=== PATIENT | female | born 1985 | race Caucasian/White ===

== ENCOUNTER 2016-04-22 17:32 | Emergency (ER) | payer OTHER ==
[2016-04-22 17:39] VITALS: RESP 18
--- NOTE | 2016-04-22 18:28 | DX ---
Abdomen single views at 1753 hour Indication: Constipation. Vomiting. Comparison: None available. Findings: Moderate stool especially the ascending and transverse colon but also throughout the descen ding colon. Lung bases not identified. No bowel obstruction. Bones are unremarkable for patients age. Impression: Constipation.
--- NOTE | 2016-04-22 18:53 | EDPHY ---
H & P Time Seen by Provider: 04/22/16 18:45 HPI/ROS: HPI: 31-year-old female presents to emergency department with chief concern constipation. Has not had bowel movement for 4 days. Tried Mag citrate this morning without relief of constipation. Has been feeling slightly nauseous and had 2 episodes of emesis today. She is on chronic narcotic pain medication for 3 years. Does not take a stool softener. Has had issues with constipation in the past. Denies fever, chills, abdominal pain, urinary symptoms, back or flank pain. ROS:10 point review of systems is negative other than as stated in HPI Past Medical/Surgical History: Anxiety, bipolar, attention deficit hyperactivity disorder, bladder control issues, left elbow surgery in 2 left ankle surgeries, pneumonia, prediabetic, tubal ligation, septoplasty, Social History: Lives with her mother Smoking Status: Never smoked Physical Exam: Vital signs stable, reviewed by me General: Awake, alert, calm, cooperative. No acute distress. Head: Normalocephalic. Atraumatic. EENT: PERRLA. EOMI. No pallor or injection. Anicteric. No nystagmus. No injection. Neck: Supple, nontender. No lymphadenopathy. Full range of motion. No meningismus. Respiratory: Breathing unlabored. Breath sounds equal bilaterally and clear to auscultation. No adventitious sounds. CV: Chest nontender, atraumatic. Heart rate regular. No murmur, distal pulses 2+ bilaterally. Brisk cap refill all extremities. GI: Abdomen soft, mildly tender left middle abdomen. No guarding. No rebound. Bowel sounds normoactive and positive x4 quadrants. Rectal: No impaction, no masses, no hemorrhoids Neuro: Alert. Oriented x 3. Speech clear. Nonfocal cranial nerves throughout. Sensation intact all extremities. Skin: Skin warm, dry, intact. No rashes, abrasions, or lacerations. Skin turgor normal. Extremities: Full range of motion in all 4 extremities. Strength 5+ all extremities. Constitutional: Initial Vital Signs Temperature (C) 36.6 C 04/22/16 17:37 Heart Rate 88 04/22/16 17:37 Respiratory Rate 18 04/22/16 17:37 Blood Pressure 147/100 H 04/22/16 17:37 O2 Sat (%) 90 L 04/22/16 17:37 O2 Delivery Mode Room Air Allergies/Adverse Reactions: hydrocodone bitartrate [From Vicodin] Allergy (Intermediate, Verified 04/22/16 17:35) Vomiting metformin Allergy (Mild, Verified 04/22/16 17:35) Rash adhesive tape Allergy (Verified 04/22/16 17:35) Milk Containing Products [dairy] Allergy (Verified 04/22/16 17:35) golight Allergy (Intermediate, Uncoded 01/31/16 15:17) Vomiting other allergy Allergy (Uncoded 11/08/15 20:42) Home Medications: Medication Instructions Recorded ARIPiprazole [Abilify 10 mg (*)] 10 mg PO DAILY 11/16/12 Montelukast Sodium [Singulair 10 10 mg PO DAILY@1800 11/16/12 mg (*)] OXcarbazepine [Trileptal 300mg (*)] 600 mg PO BID 11/16/12 Pregabalin [Lyrica 75mg (*)] 75 mg PO BID 11/16/12 Dexlansoprazole [DEXILANT] 30 mg PO DAILY 11/21/13 Methylphenidate HCl [METADATE CD] 10 mg PO DAILY 11/21/13 LORazepam [Ativan (*)] 1 mg PO HS 11/22/13 Levalbuterol 0.63 mg [Xopenex 0.63 mg IH Q6 PRN #1 deyvial 11/23/13 0.63MG Neb (*)] Azelastine/Fluticasone [Dymista 1 spray NS BID 02/22/16 Nasal [place]] Diclofenac Sodium [Voltaren 75 MG 75 mg PO BID 02/22/16 (*)] Ferrous Sulfate [Ferrous Sulf 325 325 mg PO DAILY 02/22/16 MG (*)] Mometasone/Formoterol [Dulera 200 2 puffs IH BID 02/22/16 Mcg/5 Mcg Inhaler] Oxybutynin Chloride [OXYBUTYNIN 5 mg PO DAILY 02/22/16 CHLORIDE ER] Oxycodone HCl [Roxicodone] 5 mg PO BID 02/22/16 Polyethylene Glycol 3350 [Miralax 17 gm PO DAILY #3 pkt 04/22/16 17 gm (*)] Medical Decision Making - Diagnostics Imaging: Abdomen single views at 1753 hour Indication: Constipation. Vomiting. Comparison: None available. Findings: Moderate stool especially the ascending and transverse colon but also throughout the descending colon. Lung bases not identified. No bowel obstruction. Bones are unremarkable for patients age. Impression: Constipation. Dictated By: Leonardo Padilla ED Course/Re-evaluation: Upright of the abdomen consistent with moderate constipation. No evidence of obstruction. Patient has positive bowel sounds. She is afebrile. She has not had a bowel movement x4 days. She is not impacted. 1925: mineral oil enema given Without results. 2100: 2nd enema given without results Patient has been counseled regarding the use of stool softeners and laxative. She will continue this regimen at home, begin stool softener and Miralax and follow up with primary care tomorrow. Differential Diagnosis: Constipation, obstruction - Data Points Medications Given: Discontinued Medications Mineral Oil (Muri-Lube Mineral Oil) 30 ml TP ONCE ONE Stop: 04/22/16 19:59 Last Admin: 04/22/16 18:40 Dose: 30 ml Mineral Oil (Muri-Lube Mineral Oil) 30 ml TP ONCE ONE Stop: 04/22/16 20:33 Last Admin: 04/22/16 20:44 Dose: 30 ml Departure - Departure Disposition: Home, Routine, Self-Care Clinical Impression: Constipation Qualifiers: Constipation type: other constipation type Qualifier Code: (K59.09) Other constipation Condition: Good Instructions: Constipation (ED), High Fiber Diet (ED) Additional Instructions: Plan: We have given you 2 enemas here in the ED. Go to pharmacy and buy OTC Fleets enema and use at home. Use Mag Citrate OTC max dose as directed on the bottle. [id number] Colace stool softener daily for 2 weeks, or as directed by your primary care provider Begin using Aliyah lax daily for the next 3 days See your primary care provider tomorrow for recheck without fail--When you call to schedule appointment, please let the office know you are an "ER follow up" appointment" Drink plenty of fluids Smooth Move or Get Regular are OTC teas for help with constipation Referrals: Kenyatta Coates NP [Primary Care Provider] - As per Instructions Prescriptions: Polyethylene Glycol 3350 [Miralax 17 gm (*)] 17 gm PO DAILY #3 pkt
[2016-04-22] MEDS ORDERED: MINERAL OIL 10 ML VIAL TP ONE ×2 (19:58→20:32)
[2016-04-22 21:00] VITALS: BP 135/96; PULSE 77; TEMP 97.3; O2SAT 93
== END 2016-04-22 21:37 | disposition home or self-care (01) ==
DX: K59.09 Other constipation (principal)

== ENCOUNTER 2016-05-10 22:03 | Emergency (ER) | payer OTHER ==
[2016-05-10 22:11] VITALS: RESP 16
--- NOTE | 2016-05-10 22:27 | EDPHY ---
H & P Stated Complaint: "feels like there's a bubble" in throat x 2-3? days, unable to clear it HPI/ROS: HPI CHIEF COMPLAINT: "I am having bad GERD" HISTORY OF PRESENT ILLNESS: This patient very pleasant 31-year-old female she does have significant past medical history for anxiety, bipolar disorder ED and GERD. She presents emergency room by private vehicle feeling as if there is a bubble stuck in her throat. She is able to swallow. She denies neck pain meningeal signs, denies trouble swallowing, denies pain when she swallows. She tells me that this feels like a bubble stuck in the back of her throat. Patient tells me that when her GERD gets very bad she gets sensation in the back of her throat that there is a bubble stuck there. It has been present all day. She has not had any trouble breathing. She denies fever, trouble swallowing, trouble breathing or drooling. Past Medical History: Anxiety, bipolar disorder, ADD, gerd, pneumonia Past Surgical History: Tubal ligation Social History: Denies daily use of drugs alcohol tobacco products Family History: Noncontributory ROS REVIEW OF SYSTEMS: A comprehensive 10 point review of systems is otherwise negative aside from elements mentioned in the history of present illness. Exam Constitutional triage nursing summary reviewed, vital signs reviewed, awake/ alert. Eyes normal conjunctivae and sclera, EOMI, PERRLA. HENT posterior pharynx is normal inspection uvula midline no significant swelling, no signs of MARKET RESEARCH COORDINATOR, RPA, no trismus, no foul smell, able to swallow appropriately no bruit on exam, normal inspection, atraumatic, moist mucus membranes, no epistaxis, neck supple/ no meningismus, no raccoon eyes. Respiratory clear to auscultation bilaterally, normal breath sounds, no respiratory distress, no wheezing. Cardiovascular rate normal, regular rhythm, no murmur, no edema, distal pulses normal. Gastrointestinal soft, non-tender, no rebound, no guarding, normal bowel sounds, no distension, no pulsatile mass. Genitourinary no CVA tenderness. Musculoskeletal no midline vertebral tenderness, full range of motion, no calf swelling, no tenderness of extremities, no meningismus, good pulses, neurovascularly intact. Skin pink, warm, & dry, no rash, skin atraumatic. Neurologic awake, alert and oriented x 3, AAOx3, moves all 4 extremities equally, motor intact, sensory intact, CN II-XII intact, normal cerebellar, normal vision, normal speech. Psychiatric normal mood/affect. Heme/Lymph/Immune no lymphadenopathy. Differential Diagnosis: Includes but is not limited to in a particular order GERD, anxiety, esophagitis, esophageal spasm, doubt neck foreign body, doubt infection of the deep space neck Medical Decision Making: Patient be given a GI cocktail to see if this improves her symptoms. We will re-evaluate after this. Re-evaluation: 0125AM: Re-examination at this time this patient is resting comfortably. She feels much better after GI cocktail she states her symptoms have resolved. She is requesting discharge home. She is able swallow appropriately. She has no stridor and she is not drooling is much better after GI cocktail. Pain-free. Source: Patient - Personal History LMP (Females 10-55): Unknown Current Tetanus/Diphtheria Vaccine: Yes Current Tetanus Diphtheria and Acellular Pertussis (TDAP): Yes Tetanus Vaccine Date: 2013 - Medical/Surgical History Hx Asthma: Yes Hx Chronic Respiratory Disease: No Hx Diabetes: Yes Hx Cardiac Disease: No Hx Renal Disease: No Hx Cirrhosis: No Hx Alcoholism: No Hx HIV/AIDS: No Hx Splenectomy or Spleen Trauma: No Other PMH: esophageal reflux, anxiety, bipolar , ADHD, bladder control issues. left elbow surgery and 2 left ankle surgery-Dx with regional complex pain syndrome., PNA. "pre-diabetic". surg-tubal ligation. septo plasty, turminate reduction - Social History Smoking Status: Never smoked Constitutional: Initial Vital Signs Temperature (C) 36.3 C 05/10/16 22:07 Heart Rate 101 H 05/10/16 22:07 Respiratory Rate 16 05/10/16 22:07 Blood Pressure 126/99 H 05/10/16 22:07 O2 Sat (%) 94 05/10/16 22:07 O2 Delivery Mode Room Air Allergies/Adverse Reactions: hydrocodone bitartrate [From Vicodin] Allergy (Intermediate, Verified 04/22/16 17:35) Vomiting metformin Allergy (Mild, Verified 04/22/16 17:35) Rash adhesive tape Allergy (Verified 04/22/16 17:35) [id number] [From Golytely] Allergy (Verified 05/10/16 22:13) Milk Containing Products [dairy] Allergy (Verified 04/22/16 17:35) polyethylene glycol [From Golytely] Allergy (Verified 05/10/16 22:13) polyethylene glycol 3350 [From Golytely] Allergy (Verified 05/10/16 22:13) potassium chloride [From Golytely] Allergy (Verified 05/10/16 22:13) sodium [From Golytely] Allergy (Verified 05/10/16 22:13) sodium bicarbonate [From Golytely] Allergy (Verified 05/10/16 22:13) sodium sulfate [From Golytely] Allergy (Verified 05/10/16 22:13) sodium sulfate anhydrous [From Golytely] Allergy (Verified 05/10/16 22:13) golight Allergy (Intermediate, Uncoded 01/31/16 15:17) Vomiting other allergy Allergy (Uncoded 11/08/15 20:42) Home Medications: Medication Instructions Recorded ARIPiprazole [Abilify 10 mg (*)] 10 mg PO DAILY 11/16/12 Montelukast Sodium [Singulair 10 10 mg PO DAILY@1800 11/16/12 mg (*)] OXcarbazepine [Trileptal 300mg (*)] 600 mg PO BID 11/16/12 Pregabalin [Lyrica 75mg (*)] 75 mg PO BID 11/16/12 Dexlansoprazole [DEXILANT] 30 mg PO DAILY 11/21/13 Methylphenidate HCl [METADATE CD] 10 mg PO DAILY 11/21/13 LORazepam [Ativan (*)] 1 mg PO HS 11/22/13 Levalbuterol 0.63 mg [Xopenex 0.63 mg IH Q6 PRN #1 deyvial 11/23/13 0.63MG Neb (*)] Azelastine/Fluticasone [Dymista 1 spray NS BID 02/22/16 Nasal [place]] Diclofenac Sodium [Voltaren 75 MG 75 mg PO BID 02/22/16 (*)] Ferrous Sulfate [Ferrous Sulf 325 325 mg PO DAILY 02/22/16 MG (*)] Mometasone/Formoterol [Dulera 200 2 puffs IH BID 02/22/16 Mcg/5 Mcg Inhaler] Oxybutynin Chloride [OXYBUTYNIN 5 mg PO DAILY 02/22/16 CHLORIDE ER] Oxycodone HCl [Roxicodone] 5 mg PO BID 02/22/16 Polyethylene Glycol 3350 [Miralax 17 gm PO DAILY #3 pkt 04/22/16 17 gm (*)] Medical Decision Making - Data Points Medications Given: Discontinued Medications Miscellaneous Medication (Gi Cocktail) 55 ml PO EDNOW ONE Stop: 05/10/16 22:32 Last Admin: 05/10/16 22:49 Dose: 55 ml Miscellaneous Medication (Gi Cocktail) 55 ml PO EDNOW ONE Stop: 05/10/16 23:25 Last Admin: 05/10/16 23:24 Dose: 55 ml Departure - Departure Disposition: Home, Routine, Self-Care Clinical Impression: GERD (gastroesophageal reflux disease) Qualifiers: Esophagitis presence: with esophagitis Qualified Code(s): K21.0 - Gastro- esophageal reflux disease with esophagitis Condition: Good Instructions: Gastroesophageal Reflux Disease (ED) Additional Instructions: 1. Drink lots of fluids stay well-hydrated 2. Stay away from spicy fatty greasy foods. 3. return emergency room if you have any worsening symptoms questions or concerns. Referrals: Kenyatta Coates NP [Primary Care Provider] - As per Instructions
[2016-05-10] MEDS ORDERED: MAALOX/LIDO/HYOSC GI COCKTAIL 55 ML BOTTLE PO ONE ×2 (22:31→23:24)
[2016-05-10] MEDS ORDERED: MAALOX/LIDO/HYOSC GI COCKTAIL 55 ML BOTTLE ONE (23:22)
[2016-05-11 01:35] VITALS: BP 140/94; PULSE 90; TEMP 97.5; O2SAT 92
== END 2016-05-11 01:33 | disposition home or self-care (01) ==
DX: K21.0 Gastro-esophageal reflux disease with esophagitis (principal)

== ENCOUNTER 2016-05-23 06:01 | Observation (INO) | payer OTHER ==
[2016-05-23] MEDS ORDERED: cefOXitin SODIUM 1 GM in D5W 50 ML IV ONE (06:30)
[2016-05-23] MEDS ORDERED: LIDOCAINE 1% 2 ML INJ ONE (06:35)
[2016-05-23] MEDS ORDERED: BUPIVACAINE 0.5% 30 ML SDV ONE (06:45)
[2016-05-23] MEDS ORDERED: DEXAMETHASONE 4 MG/ML VIAL ONE ×2 (06:57→06:59)
[2016-05-23] MEDS ORDERED: METOCLOPRAMIDE 10 MG/2 ML VIAL ONE (06:57)
[2016-05-23] MEDS ORDERED: fentaNYL 250 MCG/5 ML INJ ONE (06:58)
[2016-05-23] MEDS ORDERED: PROPOFOL/EMULSION 500 MG/50 ML BOTTLE IV ONE ×3 (06:58→09:28)
[2016-05-23] MEDS ORDERED: MIDAZOLAM 2 MG/2 ML VIAL ONE (06:58)
[2016-05-23] MEDS ORDERED: PROPOFOL 200 MG/20 ML VIAL ONE (06:58)
[2016-05-23] MEDS ORDERED: LIDOCAINE 2% 5 ML SDV ONE ×2 (07:01→08:16)
[2016-05-23] MEDS ORDERED: ROCURONIUM 100 MG/10 ML VIAL ONE (07:01)
[2016-05-23] MEDS ORDERED: PHENYLEPHRINE HCL 100 MCG/ML SYR ONE (07:02)
[2016-05-23] MEDS ORDERED: NEOSTIGMINE METHYLSULFATE 5 MG/5 ML SYR ONE (07:03)
[2016-05-23] MEDS ORDERED: LIDOCAINE 1% 5 ML SDV ID PRN (07:03)
[2016-05-23] MEDS ORDERED: GLYCOPYRROLATE 0.2 MG/1 ML VIAL ONE ×3 (07:03→09:53)
[2016-05-23] MEDS ORDERED: LR 1,000 ML IV ONE (07:03)
[2016-05-23] MEDS ORDERED: fentaNYL 100 MCG/2 ML INJ ONE ×3 (07:05→10:53)
[2016-05-23] MEDS ORDERED: ESMOLOL HCL 100 MG/10 ML VIAL IV ONE (08:28)
[2016-05-23] MEDS ORDERED: HYDROmorphONE/DILAUDID 2 MG/ML INJ ONE (08:31)
[2016-05-23] MEDS ORDERED: RANITIDINE 50 MG/2 ML VIAL ONE ×2 (09:06)
[2016-05-23] MEDS ORDERED: PHENYLEPHRINE 10 MG/ML SDV ONE (09:07)
--- NOTE | 2016-05-23 10:29 | POSTOPPROG ---
Post Op Note Date of Operation: 05/23/16 Surgeon: Lawrence Mckenna [place] Shear Operator: Crystal Denton Anesthesia: GET(General Endotracheal) Pre-op Diagnosis: GERD Post-op Diagnosis: GERD Procedure: Robotic fundoplication Inf/Abcess present in the surg proc area at time of surgery?: No EBL: 50-100
[2016-05-23] MEDS ORDERED: HYDROmorphONE/DILAUDID 1 MG/ML SYR ONE (10:53)
[2016-05-23] MEDS: LR 1,000 ML IV SCH ×2 (12:14→19:49)
[2016-05-23] MEDS: HYDROmorphONE/DILAUDID 1 MG/ML SYR IVP PRN ×5 (13:11→23:32)
--- NOTE | 2016-05-23 14:05 | GOP ---
[f rep st] OPERATIVE REPORT DATE OF OPERATION: 05/23/2016 SURGEON: Ray Mckenna MD LADLE LINER: Crystal Denton, whose presence was requested by me and medically necessary for the safe an d timely completion of this case. ANESTHESIA: General endotracheal anesthesia. PREOPERATIVE DIAGNOSIS: Gastroesophageal reflux disease. POSTOPERATIVE DIAGNOSIS: Gastroesophageal reflux disease. PROCEDURE PERFORMED: Robotic hiatal hernia repair and fundoplication. FINDINGS: A partial posterior wrap was performed. Patient had a small hiatal hernia. ESTIMATED BLOOD LOSS: 50 cc. INDICATIONS: This is a 31-year-old female with a history of reflux. Risks and benefits of procedur e were discussed with the patient and her family. Their questions were answered and they wished to proceed. DESCRIPTION OF PROCEDURE: The patient was in the supine position initially. After the induction of adequate general endotracheal anesthesia, the patient was moved to the modified lithotomy position. The patient was then prepped and draped in the standard surgical fashion. Marcaine 0.5% was injec dennys throughout the supraumbilical area for local anesthesia. An 8-mm incision was made and the abdominal wall was elevated. A Veress needle was inserted and aft er noting proper pressures, the abdomen was insufflated with carbon dioxide. An 8-mm trocar was jaime yael and a camera followed. There was no apparent damage from trocar placement. Four more ports wer e placed, three 8-mm ports in the upper abdomen and one 5-mm port in the right mid abdomen. These w ere all placed under direct vision after injecting 0.5% Marcaine for local anesthesia. The robot was then docked without difficulty. Robotic instruments were then used to perform the diss ection. The Harmonic scalpel was used to take down the gastrohepatic ligament. Dissection was then carried over the esophagus exposing the right sylwia. The dissection proceeded laterally and the sup erior portion of the esophagus and the left sylwia were exposed. The vagus nerves were seen and prese rved throughout the entire case. Next, the posterior window was opened using blunt dissection and t he Harmonic scalpel. Once this window was achieved, attention was turned to the short gastrics. A significant portion of the short gastric vessels was taken down using a Harmonic scalpel. This fr eed up the fundus in its entirety. The mediastinal dissection was then performed. This was careful ly performed using blunt dissection and minimal energy component. Once the entire visible portion o f the esophagus was freed and the gastroesophageal junction returned to the abdomen, the repair of t he hiatal hernia ensued. Interrupted sutures of 3-0 silk were used to approximate the hiatus edge bonder iorly. Enough room was seen for the esophagus and an instrument tip. The fundus was then brought p osteriorly to the esophagus and the wrap performed. Initial suture took bites of stomach, anterior esophagus, and stomach. Care was taken again to avoid the vagus nerve. Two more sutures of 3-0 ama k were used to create the wrap inferiorly. This was a loose floppy wrap. No other lesions were ziyad ntified at this time. Good hemostasis was noted. The robot was then undocked. Trocars were removed under direct vision. The pneumoperitoneum was al lowed to escape. The wounds were thoroughly irrigated. The skin at all sites was closed using 4-0 Monocryl in a subcuticular suture. Wounds were sterilely dressed and the patient was returned to th e supine position and extubated. The patient was then taken to the PACU in stable condition. COMPLICATIONS: None. DRAINS: None. ADDENDUM: A partial wrap was performed. After anchoring each side of the wrap to the crura using s ilk sutures, the stomach was then anchored to the esophagus on each side, approximating a 270 degree wrap. /[id number]/MODL
[2016-05-23] MEDS: ONDANSETRON 4 MG/2 ML VIAL IVP PRN (16:17)
[2016-05-24] MEDS: HYDROmorphONE/DILAUDID 1 MG/ML SYR IVP PRN ×3 (01:37→10:14)
[2016-05-24] MEDS: ENOXAPARIN 40 MG/0.4 ML SYR SC SCH (10:14)
--- NOTE | 2016-05-24 10:26 | SOAPPROG ---
SOAP Progress Note Assessment/Plan: Assessment: s/p lap fundoplication, improving. Clears today. Ambulate. Plan: 05/24/16 10:25 Subjective: Alert, NAD RRR Abd soft, inc TTP Inc C/D/I Objective: Vital Signs Temp Pulse Resp BP Pulse Ox 36.4 C 91 16 141/96 H 91 L 05/24/16 08:28 05/24/16 08:28 05/24/16 08:28 05/24/16 08:28 05/24/16 08:28 05/23/16 05/24/16 05/25/16 05:59 05:59 05:59 Intake Total 1850 980 Output Total 100 Balance 1750 980 ICD10 Worksheet Patient Problems: Problems Problem Status Onset Abdominal pain Acute Acute respiratory failure Acute Complex regional pain syndrome Acute Constipation Acute Exacerbation of asthma Acute Left leg swelling Acute
[2016-05-24] MEDS ORDERED: LEVALBUTEROL INHALER 200 PUFFS/15 GM MDI IH PRN (10:27)
[2016-05-24] MEDS ORDERED: LEVALBUTEROL 0.63 MG/3 ML DEYVIAL IH PRN (10:27)
[2016-05-24] MEDS: ARIPiprazole 10 MG TAB PO SCH (12:01)
[2016-05-24] MEDS: OXcarbazepine 300 MG TAB PO SCH ×2 (12:02→21:32)
[2016-05-24] MEDS: oxyCODONE IR 5 MG TAB PO PRN ×2 (12:02→17:27)
[2016-05-24] MEDS: ONDANSETRON 4 MG/2 ML VIAL IVP PRN (14:03)
[2016-05-24] MEDS: KETOROLAC 15 MG/1 ML SDV IVP SCH ×2 (14:03→21:32)
[2016-05-24] MEDS: LR 1,000 ML IV SCH (15:01)
[2016-05-24] MEDS ORDERED: MONTELUKAST SODIUM 10 MG TAB PO SCH (21:00)
[2016-05-24] MEDS: PREGABALIN 75 MG CAP PO SCH (21:32)
[2016-05-24] MEDS: Mometasone/Formoterol [Dulera 200 Mcg/5 Mcg Inhaler] 2 PUFFS IH SCH (22:55)
[2016-05-25] MEDS: KETOROLAC 15 MG/1 ML SDV IVP SCH ×2 (05:08→14:23)
[2016-05-25 08:20] VITALS: RESP 16; O2SAT 90
[2016-05-25] MEDS: Mometasone/Formoterol [Dulera 200 Mcg/5 Mcg Inhaler] 2 PUFFS IH SCH (08:28)
[2016-05-25] MEDS: ENOXAPARIN 40 MG/0.4 ML SYR SC SCH (09:28)
[2016-05-25] MEDS: PREGABALIN 75 MG CAP PO SCH (09:28)
[2016-05-25] MEDS: ARIPiprazole 10 MG TAB PO SCH (09:28)
[2016-05-25] MEDS: OXcarbazepine 300 MG TAB PO SCH (09:28)
[2016-05-25] MEDS: oxyCODONE IR 5 MG TAB PO PRN (10:33)
[2016-05-25 11:31] VITALS: BP 135/90; PULSE 83; TEMP 98.1
--- NOTE | 2016-05-25 12:58 | SOAPPROG ---
SOAP Progress Note Assessment/Plan: Assessment: s/p lap fundoplication, improving. Plan d/c Plan: 05/24/16 10:25 05/25/16 12:56 Subjective: Patient feels better, kiarra po. Objective: Vital Signs Temp Pulse Resp BP Pulse Ox 36.7 C 83 16 135/90 H 90 L 05/25/16 11:30 05/25/16 11:30 05/25/16 11:30 05/25/16 11:30 05/25/16 11:30 05/24/16 05/25/16 05/26/16 05:59 05:59 05:59 Intake Total 1850 1480 Output Total 100 Balance 1750 1480 Alert, NAD RRR Abd soft, NTTP Inc C/D/I ICD10 Worksheet Patient Problems: Problems Problem Status Onset Abdominal pain Acute Acute respiratory failure Acute Complex regional pain syndrome Acute Constipation Acute Exacerbation of asthma Acute Left leg swelling Acute
== END 2016-05-25 14:43 | disposition home or self-care (01) ==
LOC: F3E 06:01
PROVIDERS: ADMIT Surgery; ATTEND Surgery
PROC: 8E0W4CZ Robotic Assisted Procedure of Trunk Region, Percutaneous Endoscopic Approach (ICD-10-PCS; principal; 2016-05-23 07:30)
PROC: 0DV44CZ Restriction of Esophagogastric Junction with Extraluminal Device, Percutaneous Endoscopic Approach (ICD-10-PCS; principal; 2016-05-23 07:30)
DX: K21.9 Gastro-esophageal reflux disease without esophagitis (principal); R13.10 Dysphagia, unspecified
CPT/HCPCS: 43280; G0378; J0697; J1100; J1170; J1650; J1885; J2250; J2370; J2405; J2704; J2710; J2765; J2780; J3010

== ENCOUNTER 2016-05-28 23:34 | Emergency (ER) | payer OTHER ==
[2016-05-28 23:59] VITALS: TEMP 97.3
[2016-05-29] MEDS ORDERED: NS 1,000 ML IV ONE (00:21)
--- NOTE | 2016-05-29 00:28 | EDPHY ---
General - Diagnostics EKG: I reviewed patient's EKG. See ebindle system for interpretation - History Smoking Status: Never smoked Narrative: CHIEF COMPLAINT: dizziness, lightheaded, somnolent HISTORY OF PRESENT ILLNESS: patient has recently resumed multiple medications. She has been off these for a week to a surgery on Saturday. She had a Conner fundoplication without complication. Her postoperative course has been normal per her. She does have some expected abdominal pain but no change in improving slowly. She said this evening however she became very lightheaded and dizzy soon after taking some of her evening medications. This includes trileptal, Lyrica, OxyContin and ativan. no chest pain. She felt dizzy and lightheaded. She felt very sleepy. She felt like she needed to lay down. She called her spouse in the spouse said that she looked very tired. she has not lost consciousness. No particular modifying factors for this. She has been able to stay awake but she has to work to do so. Has not taking anything else to help this. No other associated complaints or modifying factors. REVIEW OF SYSTEMS: Ten systems reviewed and are negative unless otherwise noted in the HPI PERTINENT MEDICAL HISTORY: EXAMINATION General Appearance: Alert, no distress . Some alert but spontaneously awakes without difficulty Head: normocephalic, atraumatic Eyes: Pupils equal and round, no conjunctival pallor or injection. EOMs intact. ENT, Mouth: Mucous membranes moist . Uvula midline. No erythema or edema Neck: Normal inspection, supple, non-tender Respiratory: Lungs are clear to auscultation. No wheezing, rhonchi or crackles. Cardiovascular: Regular rate and rhythm . No murmur. Pulses intact distally. Gastrointestinal: Abdomen is soft . Mild tenderness in all quadrants. Surgical incisions well healed. No tympany or rigidity. Neurological: A&O, nonfocal . Strength symmetric in all limbs. Skin: Warm and dry, no rash . Surgical incisions clean dry and intact Extremities: Nontender, no pedal edema Psychiatric: somnolent but awake spontaneously. DIFFERENTIAL DIAGNOSES: Including but not limited to Polypharmacy, accidental overdose, sedating side effects, vertigo MDM: 12:25 a.m. increased somnolence, dizziness and lightheadedness. The patient has just resumed all of her medications, most of which are sedated and side effects. She has no chest pain. She has no change in her postoperative abdominal pain. She has no change in her chronic pain. No syncope. No shortness of breath. I do feel that this is likely because of her medication being resumed without weaning back on him. Vital signs are stable. She was 80% on room air at time of arrival. Will obtain laboratory studies to ensure that her renal function is normal. Provide IV fluid resuscitation and monitor her on oxygen. 1:30 a.m. laboratory studies are within normal limits. There are mild elevations of AST and ALT. This is not new for her. She is still somnolent and we will continue to monitor. I have discussed the case with Dr. Poe. she will assume care the patient at this time. Please see her note for final disposition. I have taken the patient off of her oxygen to try her on room air She was mildly hypoxic at time of arrival. EKG: Interpreted by Dr. Poe rate is 74 beats per minute. Sinus rhythm. No ST depression or elevation. T- waves are inverted in V1, V2 and V3. No conduction delay. Normal axis. Interpretation: Normal sinus rhythm, chronic T-wave inversion. I did compare this to the EKG on January 31, 2016. The T-waves are the same in V1 through V 3. SUPERVISION: Patient was evaluated in conjunction with the supervising physician. Please see their note for details. (Tyrese Vieira) Medical Decision Making: PHYSICIAN DOCUMENTATION: The patient was evaluated and managed by the Physician Deputy Coroner Investigator. My co- signature indicates that I have reviewed this chart and I agree with the findings and plan of care as documented. I am the secondary supervising physician. 3:30 a.m.- The patient was re-evaluated by me. She is feeling better, more alert than when she came in. She is tired but acknowledges it is early in the morning. She is now on room air and is satting 94-95% while speaking with me. She is able to ambulate around the emergency room without any difficulty. She will be discharged home per her request. She will call her doctor this morning to discuss medication adjustments given that her symptoms are likely related to her medication use. (Mony Poe) - Objective Vital Signs: Initial Vital Signs Temperature (C) 97.3 F 05/28/16 23:35 Heart Rate 94 05/28/16 23:35 Respiratory Rate 16 03/13/17 23:35 Blood Pressure 130/100 H 05/28/16 23:35 O2 Sat (%) 88 L 05/28/16 23:35 O2 Delivery Mode Room Air O2 (L/minute) 2 Allergies/Adverse Reactions: hydrocodone bitartrate [From Vicodin] Allergy (Intermediate, Verified 04/22/16 17:35) Vomiting metformin Allergy (Mild, Verified 04/22/16 17:35) Rash adhesive tape Allergy (Verified 05/18/16 10:30) Rash [id number] [From Golytely] Allergy (Verified 05/10/16 22:13) Milk Containing Products [dairy] Allergy (Verified 05/18/16 10:30) Dyspnea polyethylene glycol [From Golytely] Allergy (Verified 05/10/16 22:13) polyethylene glycol 3350 [From Golytely] Allergy (Verified 05/10/16 22:13) potassium chloride [From Golytely] Allergy (Verified 05/10/16 22:13) sodium [From Golytely] Allergy (Verified 05/10/16 22:13) sodium bicarbonate [From Golytely] Allergy (Verified 05/10/16 22:13) sodium sulfate [From Golytely] Allergy (Verified 05/10/16 22:13) sodium sulfate anhydrous [From Golytely] Allergy (Verified 05/10/16 22:13) golight Allergy (Intermediate, Uncoded 01/31/16 15:17) Vomiting other allergy Allergy (Uncoded 11/08/15 20:42) Home Medications: Medication Instructions Recorded ARIPiprazole [Abilify 10 mg (*)] 10 mg PO DAILY 11/16/12 Montelukast Sodium [Singulair 10 10 mg PO HS 11/16/12 mg (*)] OXcarbazepine [Trileptal 300mg (*)] 600 mg PO BID 11/16/12 Pregabalin [Lyrica 75mg (*)] 75 mg PO BID 11/16/12 Methylphenidate HCl [METADATE CD] 10 mg PO DAILY 11/21/13 LORazepam [Ativan (*)] 1 mg PO HS 11/22/13 Levalbuterol 0.63 mg [Xopenex 0.63 mg IH Q6 PRN #1 deyvial 11/23/13 0.63MG Neb (*)] Diclofenac Sodium [Voltaren 75 MG 75 mg PO BID 02/22/16 (*)] Ferrous Sulfate [Ferrous Sulf 325 325 mg PO DAILY 02/22/16 MG (*)] Mometasone/Formoterol [Dulera 200 2 puffs IH BID 02/22/16 Mcg/5 Mcg Inhaler] Oxybutynin Chloride [OXYBUTYNIN 5 mg PO DAILY 02/22/16 CHLORIDE ER] Oxycodone HCl [Roxicodone] 5 mg PO Q6H PRN 02/22/16 Cetirizine [ZyrTEC 10 mg (*)] 10 mg PO DAILY 05/18/16 Herbals/Supplements -Info Only 1 ea PO DAILY 05/18/16 LORazepam [Ativan (*)] 1 mg PO DAILY PRN 05/18/16 Levalbuterol Inhaler [Xopenex Hfa 1 puffs IH Q6H PRN 05/18/16 Inhaler (*)] Laboratory Results: Laboratory Results 05/28/16 23:35 05/28/16 23:35 Medications Given: Discontinued Medications Sodium Chloride (Ns) 1,000 mls @ 0 mls/hr IV ONCE ONE PRN Reason: Wide Open Stop: 05/29/16 00:22 Last Admin: 05/29/16 00:44 Dose: 1,000 mls Departure - Departure Disposition: Home, Routine, Self-Care Clinical Impression: Sedated due to multiple medications Condition: Good Instructions: Adverse Drug Reaction (ED) Referrals: Kenyatta Coates NP [Primary Care Provider] - As per Instructions
--- NOTE | 2016-05-29 00:49 | CPEKG ---
Heart Rate: 74 RR Interval: 811 P-R Interval: 156 QRSD Interval: 86 QT Interval: 424 QTC Interval: 471 P [place]: 21 QRS [place]: 69 T Wave [place]: 48 EKG Severity - ABNORMAL ECG - EKG Impression: SINUS RHYTHM EKG Impression: NONSPECIFIC T ABNORMALITIES, ANTERIOR LEADS Electronically Signed By: Mony Poe 29-May-2016 09:13:12
[2016-05-29 00:50] LABS: % IMMATURE GRANULYOCYTES 0.6 % (0.0-1.1); ABSOLUTE IMMATURE GRANULOCYTES 0.05 10^3/uL (0.00-0.10); ADD DIFF? NO; ADD MORPH? NO; ADD SCAN? NO; ATYPICAL LYMPHOCYTE FLAG 10 (0-99); FRAGMENT RBC FLAG 0 (0-99); HEMATOCRIT 43.7 % (38.0-47.0); HEMOGLOBIN 15.4 g/dL (12.6-16.3); LEFT SHIFT FLG 0 (0-99); LIPEMIA HEMOLYSIS FLAG 90 (0-99); MEAN CELL HEMOGLOBIN 31.4 pg (27.9-34.1); MEAN CELL HEMOGLOBIN CONCENTR. 35.2 g/dL (32.4-36.7); MEAN PLATELET VOLUME 9.9 fL (8.7-11.7); PLATELET CLUMPS FLAG 0 (0-99); PLATELET COUNT 262 10^3/uL (150-400); RED BLOOD CELL COUNT 4.91 10^6/uL (4.18-5.33); RED CELL DISTRIBUTION WIDTH 12.2 % (11.5-15.2)
[2016-05-29 01:05] LABS: ALANINE AMINOTRANSFERASE 171 IU/L (9-52); ALKALINE PHOSPHATASE 104 IU/L (38-126); ANION GAP 11 mEq/L (8-16); ASPARTATE AMINOTRANSFERASE 86 IU/L (14-46); BILIRUBIN,TOTAL 0.7 mg/dL (0.1-1.4); BILIRUBIN-CONJUGATED 0.7 mg/dL (0.0-0.5); CARBON DIOXIDE 25 mEq/l (22-31); CHLORIDE 95 mEq/L (97-110); CREATININE 0.8 mg/dL (0.6-1.0); GLOMERULAR FILTRATION RATE > 60; GLUCOSE 87 mg/dL (70-100); POTASSIUM 3.6 mEq/L (3.5-5.2); SODIUM 131 mEq/L (134-144); TOTAL PROTEIN 7.2 g/dL (6.3-8.2)
[2016-05-29 01:16] LABS: TROPONIN I < 0.012 ng/mL (0-0.034)
[2016-05-29 03:37] VITALS: BP 109/78; PULSE 71; RESP 20; O2SAT 92
== END 2016-05-29 03:51 | disposition home or self-care (01) ==
LOC: EDUNIT#
DX: R42 Dizziness and giddiness (principal); T42.6X5A Adverse effect of other antiepileptic and sedative-hypnotic drugs, initial encounter

== ENCOUNTER 2016-06-10 15:49 | Emergency (ER) | payer OTHER ==
--- NOTE | 2016-06-10 17:06 | EDPHY ---
H & P Time Seen by Provider: 06/10/16 16:39 HPI/ROS: Chief complaint. Chest pain, abdominal pain 31-year-old female with many visits to the emergency department complains of vomiting yesterday and then today left upper abdominal pain that is described as crampy. She has had nausea vomiting but no diarrhea. In fact she has not had minimal stool production since a robotic fundoplication on May 23. She was apparently taken off her stool softeners and has not resumed and has subsequently been constipated. Today she also has left anterior chest discomfort that she described as sharp. No radiation. No shortness of breath. No fever. No urinary symptoms. ROS Constitutional. no fever/chills, no weakness Eyes. no problems with vision ENT. no sore throat, no nasal drainage Cardiovascular. Chest pain Respiratory. no shortness of breath, no cough Abdominal. Abdominal pain with nausea vomiting . no problems urinating MS. no calf pain/swelling, no neck/back pain, no joint pain Skin. no rash Lymph. no swollen glands Neuro. no headache, no dizziness, no difficulty walking or with speech Past Medical/Surgical History: Past medical history seen for esophageal reflux, recent fundoplication, anxiety , bipolar illness, attention deficit hyperactivity disorder, orthopedic surgeries, prediabetic, tubal ligation, septoplasty Social History: , nonsmoker, no alcohol Smoking Status: Never smoked Physical Exam: General Appearance: Alert well-developed female mild distress vital signs are stable. Eyes: Pupils equal and round no pallor or injection. ENT, Mouth: Mucous membranes are moist. Respiratory: There are no retractions, lungs are clear to auscultation. Cardiovascular: Regular rate and rhythm. Gastrointestinal: Abdomen is soft with mild tenderness in the left mid abdomen., no masses, bowel sounds normal. Neurological: Awake and alert, sensory and motor exams grossly normal. Skin: Warm and dry, no rashes. Musculoskeletal: Neck is supple nontender. Extremities symmetrical, full range of motion. Psychiatric: Patient is oriented X 3, there is no agitation. Constitutional: Initial Vital Signs Temperature (C) 36.8 C 06/10/16 15:56 Heart Rate 105 H 06/10/16 15:56 Respiratory Rate 16 06/10/16 15:56 Blood Pressure 151/105 H 06/10/16 15:56 O2 Sat (%) 96 06/10/16 15:56 O2 Delivery Mode Room Air Allergies/Adverse Reactions: hydrocodone bitartrate [From Vicodin] Allergy (Intermediate, Verified 04/22/16 17:35) Vomiting metformin Allergy (Mild, Verified 04/22/16 17:35) Rash adhesive tape Allergy (Verified 05/18/16 10:30) Rash [id number] [From Golytely] Allergy (Verified 05/10/16 22:13) Milk Containing Products [dairy] Allergy (Verified 05/18/16 10:30) Dyspnea polyethylene glycol [From Golytely] Allergy (Verified 05/10/16 22:13) polyethylene glycol 3350 [From Golytely] Allergy (Verified 05/10/16 22:13) potassium chloride [From Golytely] Allergy (Verified 05/10/16 22:13) sodium [From Golytely] Allergy (Verified 05/10/16 22:13) sodium bicarbonate [From Golytely] Allergy (Verified 05/10/16 22:13) sodium sulfate [From Golytely] Allergy (Verified 05/10/16 22:13) sodium sulfate anhydrous [From Golytely] Allergy (Verified 05/10/16 22:13) golight Allergy (Intermediate, Uncoded 01/31/16 15:17) Vomiting other allergy Allergy (Uncoded 11/08/15 20:42) Home Medications: Medication Instructions Recorded ARIPiprazole [Abilify 10 mg (*)] 10 mg PO DAILY 11/16/12 Montelukast Sodium [Singulair 10 10 mg PO HS 11/16/12 mg (*)] OXcarbazepine [Trileptal 300mg (*)] 600 mg PO BID 11/16/12 Pregabalin [Lyrica 75mg (*)] 75 mg PO BID 11/16/12 Methylphenidate HCl [METADATE CD] 10 mg PO DAILY 11/21/13 LORazepam [Ativan (*)] 1 mg PO HS 11/22/13 Levalbuterol 0.63 mg [Xopenex 0.63 mg IH Q6 PRN #1 deyvial 11/23/13 0.63MG Neb (*)] Diclofenac Sodium [Voltaren 75 MG 75 mg PO BID 02/22/16 (*)] Ferrous Sulfate [Ferrous Sulf 325 325 mg PO DAILY 02/22/16 MG (*)] Mometasone/Formoterol [Dulera 200 2 puffs IH BID 02/22/16 Mcg/5 Mcg Inhaler] Oxybutynin Chloride [OXYBUTYNIN 5 mg PO DAILY 02/22/16 CHLORIDE ER] Oxycodone HCl [Roxicodone] 5 mg PO Q6H PRN 02/22/16 Cetirizine [ZyrTEC 10 mg (*)] 10 mg PO DAILY 05/18/16 Herbals/Supplements -Info Only 1 ea PO DAILY 05/18/16 LORazepam [Ativan (*)] 1 mg PO DAILY PRN 05/18/16 Levalbuterol Inhaler [Xopenex Hfa 1 puffs IH Q6H PRN 05/18/16 Inhaler (*)] Ondansetron Odt [Zofran Odt] 4 mg PO Q4PRN PRN #4 tab 06/10/16 Medical Decision Making - Diagnostics Imaging: Chest x-ray interpreted by me and reviewed with Dr. Traore shows no evidence for pneumonia. Procedures: IV normal saline ED Course/Re-evaluation: Re-evaluation 6:10 p.m.--patient is stable. She and I discussed imaging studies , laboratory evaluation, treatment plan including criteria for return importance of follow-up and further evaluation. She expresses understanding and agreement Differential Diagnosis: I considered pneumonia, pneumothorax, acute coronary syndrome, pulmonary embolus , gastritis, pancreatitis. At this point there are no acute findings. No evidence for pneumonia pneumothorax or acute coronary syndrome or pulmonary embolus. - Data Points Laboratory Results: Laboratory Results 06/10/16 16:05 06/10/16 16:05 06/10/16 06/10/16 06/10/16 18:10 16:05 16:05 WBC RBC Hgb Hct MCV MCH MCHC RDW Plt Count MPV Neut % (Auto) Lymph % (Auto) [place] % (Auto) Eos % (Auto) Baso % (Auto) Nucleat RBC Rel Count Absolute Neuts (auto) Absolute Lymphs (auto) Absolute Monos (auto) Absolute Eos (auto) Absolute Basos (auto) Absolute Nucleated RBC Immature Gran % Immature Gran # D-Dimer 0.33 ug/mLFEU ug/mLFEU (0.00-0.50) Sodium Potassium Chloride Carbon Dioxide Anion Gap BUN Creatinine Estimated GFR Glucose Calcium Total Bilirubin Conjugated Bilirubin Unconjugated Bilirubin AST ALT Alkaline Phosphatase Troponin I Total Protein Albumin Lipase Beta HCG, Qual NEGATIVE Urine Color YELLOW Urine Appearance CLEAR Urine pH 6.0 (5.0-7.5) Ur Specific Silver 1.020 (1.002-1.030) Urine Protein NEGATIVE (NEGATIVE) Urine Ketones NEGATIVE (NEGATIVE) Urine Blood NEGATIVE (NEGATIVE) Urine Nitrate NEGATIVE (NEGATIVE) Urine Bilirubin NEGATIVE (NEGATIVE) Urine Urobilinogen NEGATIVE EU EU (0.2-1.0) Ur Leukocyte Esterase NEGATIVE (NEGATIVE) Ur Culture Indicated? NOT INDICATED (NI) Urine Glucose NEGATIVE (NEGATIVE) 06/10/16 06/10/16 16:05 16:05 WBC 9.33 10^3/uL 10^3/uL (3.80-9.50) RBC 5.16 10^6/uL 10^6/uL (4.18-5.33) Hgb 16.6 g/dL H g/dL (12.6-16.3) Hct 48.0 % H % (38.0-47.0) MCV 93.0 fL fL (81.5-99.8) MCH 32.2 pg pg (27.9-34.1) MCHC 34.6 g/dL g/dL (32.4-36.7) RDW 12.8 % % (11.5-15.2) Plt Count 238 10^3/uL 10^3/uL (150-400) MPV 9.8 fL fL (8.7-11.7) Neut % (Auto) 67.5 % % (39.3-74.2) Lymph % (Auto) 25.6 % % (15.0-45.0) [place] % (Auto) 6.0 % % (4.5-13.0) Eos % (Auto) 0.2 % L % (0.6-7.6) Baso % (Auto) 0.5 % % (0.3-1.7) Nucleat RBC Rel Count 0.0 % % (0.0-0.2) Absolute Neuts (auto) 6.29 10^3/uL 10^3/uL (1.70-6.50) Absolute Lymphs (auto) 2.39 10^3/uL 10^3/uL (1.00-3.00) Absolute Monos (auto) 0.56 10^3/uL 10^3/uL (0.30-0.80) Absolute Eos (auto) 0.02 10^3/uL L 10^3/uL (0.03-0.40) Absolute Basos (auto) 0.05 10^3/uL 10^3/uL (0.02-0.10) Absolute Nucleated RBC 0.00 10^3/uL 10^3/uL (0-0.01) Immature Gran % 0.2 % % (0.0-1.1) Immature Gran # 0.02 10^3/uL 10^3/uL (0.00-0.10) D-Dimer Sodium 139 mEq/L mEq/L (134-144) Potassium 4.4 mEq/L mEq/L (3.5-5.2) Chloride 103 mEq/L mEq/L (97-110) Carbon Dioxide 24 mEq/l mEq/l (22-31) Anion Gap 12 mEq/L mEq/L (8-16) BUN 12 mg/dL mg/dL (7-23) Creatinine 0.7 mg/dL mg/dL (0.6-1.0) Estimated GFR > 60 Glucose 123 mg/dL H mg/dL (70-100) Calcium 9.4 mg/dL mg/dL (8.5-10.4) Total Bilirubin 0.5 mg/dL mg/dL (0.1-1.4) Conjugated Bilirubin 0.5 mg/dL mg/dL (0.0-0.5) Unconjugated Bilirubin 0.0 mg/dL mg/dL (0.0-1.1) AST 58 IU/L H IU/L (14-46) ALT 93 IU/L H IU/L (9-52) Alkaline Phosphatase 85 IU/L IU/L (38-126) Troponin I < 0.012 ng/mL ng/mL (0-0.034) Total Protein 7.3 g/dL g/dL (6.3-8.2) Albumin 4.3 g/dL g/dL (3.5-5.0) Lipase 188.0 IU/L IU/L (23-300) Beta HCG, Qual Urine Color Urine Appearance Urine pH Ur Specific Silver Urine Protein Urine Ketones Urine Blood Urine Nitrate Urine Bilirubin Urine Urobilinogen Ur Leukocyte Esterase Ur Culture Indicated? Urine Glucose Departure - Departure Disposition: Home, Routine, Self-Care Clinical Impression: Abdominal pain Qualifiers: Abdominal location: left upper quadrant Qualified Code(s): R10.12 - Left upper quadrant pain Condition: Good Instructions: Abdominal Pain (ED) Additional Instructions: Drink plenty of fluids the begin with frequent, small sips fluids well nauseated. Zofran as needed for nausea. Mylanta and prune juice for constipation. Return for worsening abdominal pain, fever, vomiting or worsening chest discomfort. Recheck in 1-2 days if not improving Referrals: Kenyatta Coates NP [Primary Care Provider] - 2-3 days, if not improved Prescriptions: Ondansetron Odt [Zofran Odt] 4 mg PO Q4PRN PRN #4 tab PRN Reason: Nausea/Vomiting, Use 1st
[2016-06-10 17:13] LABS: % IMMATURE GRANULYOCYTES 0.2 % (0.0-1.1); ABSOLUTE IMMATURE GRANULOCYTES 0.02 10^3/uL (0.00-0.10); ADD DIFF? NO; ADD MORPH? NO; ADD SCAN? NO; ATYPICAL LYMPHOCYTE FLAG 0 (0-99); FRAGMENT RBC FLAG 0 (0-99); HEMOGLOBIN 16.6 g/dL (12.6-16.3); LEFT SHIFT FLG 0 (0-99); LIPEMIA HEMOLYSIS FLAG 90 (0-99); MEAN CELL HEMOGLOBIN 32.2 pg (27.9-34.1); MEAN CELL HEMOGLOBIN CONCENTR. 34.6 g/dL (32.4-36.7); MEAN PLATELET VOLUME 9.8 fL (8.7-11.7); PLATELET CLUMPS FLAG 0 (0-99); PLATELET COUNT 238 10^3/uL (150-400); RED BLOOD CELL COUNT 5.16 10^6/uL (4.18-5.33); RED CELL DISTRIBUTION WIDTH 12.8 % (11.5-15.2)
[2016-06-10 17:19] LABS: ALANINE AMINOTRANSFERASE 93 IU/L (9-52); ALBUMIN 4.3 g/dL (3.5-5.0); ALKALINE PHOSPHATASE 85 IU/L (38-126); ANION GAP 12 mEq/L (8-16); ASPARTATE AMINOTRANSFERASE 58 IU/L (14-46); BILIRUBIN,TOTAL 0.5 mg/dL (0.1-1.4); BILIRUBIN-CONJUGATED 0.5 mg/dL (0.0-0.5); CALCIUM 9.4 mg/dL (8.5-10.4); CARBON DIOXIDE 24 mEq/l (22-31); CHLORIDE 103 mEq/L (97-110); CREATININE 0.7 mg/dL (0.6-1.0); GLOMERULAR FILTRATION RATE > 60; GLUCOSE 123 mg/dL (70-100); POTASSIUM 4.4 mEq/L (3.5-5.2); SODIUM 139 mEq/L (134-144); TOTAL PROTEIN 7.3 g/dL (6.3-8.2)
--- NOTE | 2016-06-10 17:24 | CPEKG ---
Heart Rate: 63 RR Interval: 952 P-R Interval: 132 QRSD Interval: 82 QT Interval: 412 QTC Interval: 422 P [place]: 8 QRS [place]: 42 T Wave [place]: 38 EKG Severity - NORMAL ECG - EKG Impression: SINUS RHYTHM Electronically Signed By: Stuart Jorge 10-Jun-2016 20:52:31
[2016-06-10 17:30] LABS: TROPONIN I < 0.012 ng/mL (0-0.034)
[2016-06-10 18:17] VITALS: RESP 20
[2016-06-10 18:25] LABS: COLOR YELLOW; LEUKOCYTE ESTERASE,URINE NEGATIVE (NEGATIVE); NITRITE,URINE NEGATIVE (NEGATIVE)
[2016-06-10 19:25] VITALS: BP 123/97; PULSE 76; TEMP 98.2; O2SAT 92
== END 2016-06-10 19:25 | disposition home or self-care (01) ==
DX: R10.12 Left upper quadrant pain (principal)

== ENCOUNTER 2016-07-11 19:02 | Emergency (ER) | payer OTHER ==
[2016-07-11 19:09] VITALS: O2SAT 94
[2016-07-11] MEDS ORDERED: ONDANSETRON 4 MG/2 ML VIAL IVP ONE (19:33)
[2016-07-11] MEDS ORDERED: NS 1,000 ML IV ONE ×2 (19:33)
[2016-07-11] MEDS ORDERED: HALOPERIDOL LACT 5 MG/ML INJ IV ONE (19:34)
[2016-07-11] MEDS ORDERED: LORazepam 2 MG/ML INJ IVP ONE (19:34)
--- NOTE | 2016-07-11 19:36 | EDPHY ---
H & P Time Seen by Provider: 07/11/16 19:14 HPI/ROS: CHIEF COMPLAINT: Abdominal pain and can't think today HISTORY OF PRESENT ILLNESS: Patient had Arnol fundoplication is documented in the past medical history. She recovered pretty well but is still had problems with intermittent abdominal pain. She presents to the emergency department tonight stating that she has multiple problems. She was only started on her Ativan again 1 week ago and feels that is not adequately controlling her anxiety. She has abdominal pain which is not adequately controlled tonight by her Lyrica and oxycodone but she is limiting herself to 3 doses per day because she is aware that constipation can make it worse. She does feel that she is having constipation with hard stools over the past 2 weeks with some slightly decreased oral intake. Today she has abdominal pain and nausea which is diffuse. It is not associated with bloating. No dysuria or hematuria. She says it is associated with a migraine headache and a worsening of her left ankle pain. She states that her recent prescription for Abilify was filled this 2 mg instead of 10 mg over the last week she has been taking less of that medication. REVIEW OF SYSTEMS: Eye: no change in vision ENT: no sore throat Cardiac: no chest pain or syncope Pulmonary: no cough or SOB Abdomen: HPI Musculoskeletal: Chronic left ankle pain, worse than usual. Skin: no rash Neuro: HPI Constitutional: no fever : no urinary symptoms A comprehensive 10 point review of systems is otherwise negative aside from elements mentioned in the history of present illness. PAST MEDICAL HISTORY: Arnol fundoplication on 05/23/2016, bipolar disorder, left elbow surgery, 2 ankle surgeries with his left ankle paced complex regional pain syndrome, tubal ligation Social history: , negative for alcohol General Appearance: Alert and conversant, cooperative. Eyes: No scleral icterus. ENT, Mouth: Normal mucous membranes. Respiratory: Normal respiratory effort, breath sounds equal, lungs are clear to auscultation. Cardiovascular: Regular rate and rhythm. Gastrointestinal: Abdomen is soft and non tender. No rebound or guarding and normal bowel sounds. Neurological: Alert and oriented x3. Normally conversant. Face symmetric, normal movement and sensation in all extremities. Skin: Warm and dry, no rashes. Musculoskeletal: No peripheral edema and no joint swelling. Psychiatric: Upset and anxious. Emergency Department course/MDM: Plan for Zofran 4, Haldol 2.5, Benadryl 50, Abilify 10 mg. Normal saline 2 L. Patient appears to have multifactorial reasons for increase in her symptoms. She was only recently restarted on Ativan, her Abilify dose is currently less than previously prescribed. Her abdominal exam does not suggest an acute surgical process. 2109: I awakened the patient from sleep and her symptoms are much better now. Smoking Status: Never smoked Constitutional: Initial Vital Signs Temperature (C) 36.4 C 07/11/16 19:06 Heart Rate 110 H 07/11/16 19:06 Respiratory Rate 20 07/11/16 19:06 Blood Pressure 137/91 H 07/11/16 19:06 O2 Sat (%) 94 07/11/16 19:06 O2 Delivery Mode Room Air Allergies/Adverse Reactions: hydrocodone bitartrate [From Vicodin] Allergy (Intermediate, Verified 07/11/16 19:06) Vomiting metformin Allergy (Mild, Verified 07/11/16 19:06) Rash adhesive tape Allergy (Verified 07/11/16 19:06) Rash Milk Containing Products [dairy] Allergy (Verified 07/11/16 19:06) Dyspnea polyethylene glycol [From Golytely] Allergy (Verified 07/11/16 19:06) polyethylene glycol 3350 [From Golytely] Allergy (Verified 07/11/16 19:06) potassium chloride [From Golytely] Allergy (Verified 07/11/16 19:06) sodium [From Golytely] Allergy (Verified 07/11/16 19:06) sodium bicarbonate [From Golytely] Allergy (Verified 07/11/16 19:06) sodium chloride [From Golytely] Allergy (Verified 07/11/16 19:06) sodium sulfate [From Golytely] Allergy (Verified 07/11/16 19:06) sodium sulfate anhydrous [From Golytely] Allergy (Verified 07/11/16 19:06) golight Allergy (Intermediate, Uncoded 07/11/16 19:06) Vomiting other allergy Allergy (Uncoded 07/11/16 19:06) Home Medications: Medication Instructions Recorded ARIPiprazole [Abilify 10 mg (*)] 10 mg PO DAILY 11/16/12 Montelukast Sodium [Singulair 10 10 mg PO HS 11/16/12 mg (*)] OXcarbazepine [Trileptal 300mg (*)] 600 mg PO BID 11/16/12 Pregabalin [Lyrica 75mg (*)] 75 mg PO BID 11/16/12 Methylphenidate HCl [METADATE CD] 10 mg PO DAILY 11/21/13 LORazepam [Ativan (*)] 1 mg PO HS 11/22/13 Levalbuterol 0.63 mg [Xopenex 0.63 mg IH Q6 PRN #1 deyvial 11/23/13 0.63MG Neb (*)] Diclofenac Sodium [Voltaren 75 MG 75 mg PO BID 02/22/16 (*)] Ferrous Sulfate [Ferrous Sulf 325 325 mg PO DAILY 02/22/16 MG (*)] Mometasone/Formoterol [Dulera 200 2 puffs IH BID 02/22/16 Mcg/5 Mcg Inhaler] Oxybutynin Chloride [OXYBUTYNIN 5 mg PO DAILY 02/22/16 CHLORIDE ER] oxyCODONE HCL [Roxicodone] 5 mg PO Q6H PRN 02/22/16 Cetirizine [ZyrTEC 10 mg (*)] 10 mg PO DAILY 05/18/16 Herbals/Supplements -Info Only 1 ea PO DAILY 05/18/16 LORazepam [Ativan (*)] 1 mg PO DAILY PRN 05/18/16 Levalbuterol Inhaler [Xopenex Hfa 1 puffs IH Q6H PRN 05/18/16 Inhaler (*)] Ondansetron Odt [Zofran Odt] 4 mg PO Q4PRN PRN #4 tab 06/10/16 Medical Decision Making - Data Points Laboratory Results: Laboratory Results 07/11/16 19:22 07/11/16 19:22 07/11/16 07/11/16 07/11/16 19:22 19:22 19:22 WBC 11.08 10^3/uL H 10^3/uL (3.80-9.50) RBC 5.03 10^6/uL 10^6/uL (4.18-5.33) Hgb 15.9 g/dL g/dL (12.6-16.3) Hct 46.0 % % (38.0-47.0) MCV 91.5 fL fL (81.5-99.8) MCH 31.6 pg pg (27.9-34.1) MCHC 34.6 g/dL g/dL (32.4-36.7) RDW 12.7 % % (11.5-15.2) Plt Count 210 10^3/uL 10^3/uL (150-400) MPV 9.9 fL fL (8.7-11.7) Neut % (Auto) 73.4 % % (39.3-74.2) Lymph % (Auto) 21.5 % % (15.0-45.0) Motley % (Auto) 4.2 % L % (4.5-13.0) Eos % (Auto) 0.3 % L % (0.6-7.6) Baso % (Auto) 0.2 % L % (0.3-1.7) Nucleat RBC Rel Count 0.0 % % (0.0-0.2) Absolute Neuts (auto) 8.15 10^3/uL H 10^3/uL (1.70-6.50) Absolute Lymphs (auto) 2.38 10^3/uL 10^3/uL (1.00-3.00) Absolute Monos (auto) 0.46 10^3/uL 10^3/uL (0.30-0.80) Absolute Eos (auto) 0.03 10^3/uL 10^3/uL (0.03-0.40) Absolute Basos (auto) 0.02 10^3/uL 10^3/uL (0.02-0.10) Absolute Nucleated RBC 0.00 10^3/uL 10^3/uL (0-0.01) Immature Gran % 0.4 % % (0.0-1.1) Immature Gran # 0.04 10^3/uL 10^3/uL (0.00-0.10) Sodium 132 mEq/L L mEq/L (134-144) Potassium 4.1 mEq/L mEq/L (3.5-5.2) Chloride 94 mEq/L L mEq/L (97-110) Carbon Dioxide 27 mEq/l mEq/l (22-31) Anion Gap 11 mEq/L mEq/L (8-16) BUN 9 mg/dL mg/dL (7-23) Creatinine 0.7 mg/dL mg/dL (0.6-1.0) Estimated GFR > 60 Glucose 142 mg/dL H mg/dL (70-100) Calcium 9.7 mg/dL mg/dL (8.5-10.4) Beta HCG, Qual NEGATIVE Medications Given: Discontinued Medications Aripiprazole (Abilify) 10 mg PO EDNOW ONE Stop: 07/11/16 20:31 Last Admin: 07/11/16 20:31 Dose: 10 mg Diphenhydramine HCl (Benadryl Injection) 50 mg IVP EDNOW ONE Stop: 07/11/16 19:35 Last Admin: 07/11/16 19:54 Dose: 50 mg Haloperidol Lactate (Haldol Injection) 2.5 mg IV EDNOW ONE Stop: 07/11/16 19:35 Last Admin: 07/11/16 19:55 Dose: 2.5 mg Sodium Chloride (Ns) 1,000 mls @ 0 mls/hr IV ONCE ONE PRN Reason: Wide Open Stop: 07/11/16 19:34 Last Admin: 07/11/16 19:55 Dose: 1,000 mls Sodium Chloride (Ns) 1,000 mls @ 0 mls/hr IV ONCE ONE PRN Reason: Wide Open Stop: 07/11/16 19:34 Last Admin: 07/11/16 19:54 Dose: 1,000 mls Lorazepam (Ativan Injection) 1 mg IVP EDNOW ONE Stop: 07/11/16 19:35 Last Admin: 07/11/16 19:54 Dose: 1 mg Ondansetron HCl (Zofran) 4 mg IVP EDNOW ONE Stop: 07/11/16 19:34 Last Admin: 07/11/16 19:54 Dose: 4 mg Departure - Departure Disposition: Home, Routine, Self-Care Clinical Impression: Abdominal pain Qualifiers: Abdominal location: generalized Qualified Code(s): R10.84 - Generalized abdominal pain Headache Qualifiers: Headache type: unspecified Headache chronicity pattern: acute headache Intractability: not intractable Qualified Code(s): R51 - Headache Condition: Good Instructions: Acute Headache (ED), Acute Abdominal Pain (ED) Referrals: Jaxon,Kenyatta, [facility] SPECIAL[facility] [Primary Care Provider] - As per Instructions
[2016-07-11 19:49] LABS: % IMMATURE GRANULYOCYTES 0.4 % (0.0-1.1); ABSOLUTE IMMATURE GRANULOCYTES 0.04 10^3/uL (0.00-0.10); ADD DIFF? NO; ADD MORPH? NO; ADD SCAN? NO; ATYPICAL LYMPHOCYTE FLAG 0 (0-99); FRAGMENT RBC FLAG 0 (0-99); HEMOGLOBIN 15.9 g/dL (12.6-16.3); LEFT SHIFT FLG 0 (0-99); LIPEMIA HEMOLYSIS FLAG 90 (0-99); MEAN CELL HEMOGLOBIN 31.6 pg (27.9-34.1); MEAN CELL HEMOGLOBIN CONCENTR. 34.6 g/dL (32.4-36.7); MEAN CELL VOLUME 91.5 fL (81.5-99.8); MEAN PLATELET VOLUME 9.9 fL (8.7-11.7); PLATELET CLUMPS FLAG 20 (0-99); PLATELET COUNT 210 10^3/uL (150-400); RED BLOOD CELL COUNT 5.03 10^6/uL (4.18-5.33); RED CELL DISTRIBUTION WIDTH 12.7 % (11.5-15.2)
[2016-07-11 19:52] LABS: ANION GAP 11 mEq/L (8-16); CALCIUM 9.7 mg/dL (8.5-10.4); CARBON DIOXIDE 27 mEq/l (22-31); CHLORIDE 94 mEq/L (97-110); CREATININE 0.7 mg/dL (0.6-1.0); GLOMERULAR FILTRATION RATE > 60; GLUCOSE 142 mg/dL (70-100); POTASSIUM 4.1 mEq/L (3.5-5.2); SODIUM 132 mEq/L (134-144)
[2016-07-11] MEDS ORDERED: ARIPiprazole 10 MG TAB PO ONE (20:30)
[2016-07-11 21:23] VITALS: BP 109/77; PULSE 69; RESP 16; TEMP 97.7
== END 2016-07-11 21:22 | disposition home or self-care (01) ==
DX: R10.84 Generalized abdominal pain (principal); R51 Headache; Z98.51 Tubal ligation status
CPT/HCPCS: 96374; J1200; J2060; J2405

== ENCOUNTER → 2016-08-07 | Outpatient (CLI) | payer OTHER | LOC: BMCIMAGING 07:21 | PROVIDERS: ATTEND Podiatrist Foot & Ankle Surgery | DX: M79.672 Pain in left foot (principal) ==

== ENCOUNTER 2016-08-23 16:01 | Emergency (ER) | payer OTHER ==
[2016-08-23] MEDS ORDERED: NS 1,000 ML IV ONE (16:43)
[2016-08-23] MEDS ORDERED: FAMOTIDINE 20 MG/NACL 50 ML IV ONE (16:43)
[2016-08-23] MEDS ORDERED: HYDROmorphONE/DILAUDID 1 MG/ML SYR IVP ONE (16:43)
[2016-08-23] MEDS ORDERED: ONDANSETRON 4 MG/2 ML VIAL IVP ONE (16:43)
[2016-08-23] MEDS ORDERED: HALOPERIDOL LACT 5 MG/ML INJ IVP ONE (16:44)
[2016-08-23] MEDS ORDERED: KETOROLAC 15 MG/1 ML SDV IVP ONE (16:44)
--- NOTE | 2016-08-23 16:48 | EDPHY ---
H & P Stated Complaint: l abd pain nausea and vomiting Time Seen by Provider: 08/23/16 16:31 HPI/ROS: CHIEF COMPLAINT: Epigastric pain HISTORY OF PRESENT ILLNESS: Patient is a 31-year-old obese female with a history of chronic GERD and Conner fundoplication in May of this year who comes to the emergency department complaining of epigastric pain and dry heaving. She states that she ate of piece of pizza that did not agree with her. She also states that she has had mild diarrhea today. No blood. Fever. No history of biliary disease. No lower abdominal pain. No urinary or vaginal symptoms. REVIEW OF SYSTEMS: Constitutional: denies: chills, fever, recent illness, recent injury EENTM: denies: blurred vision, double vision, nose congestion Respiratory: denies: cough, shortness of breath Cardiac: denies: chest pain, irregular heart rate, lightheadedness, palpitations Gastrointestinal/Abdominal: See HPI Genitourinary: denies: dysuria, frequency, hematuria, pain Musculoskeletal: denies: joint pain, muscle pain Skin: denies: lesions, rash, jaundice, bruising Neurological: denies: headache, numbness, paresthesia, tingling, dizziness, weakness Hematologic/Lymphatic: denies: blood clots, easy bleeding, easy bruising Immunologic/allergic: denies: HIV/AIDS, transplant EXAM: GENERAL: Well-appearing, well-nourished and in no acute distress. HEAD: Atraumatic, normocephalic. EYES: Pupils equal round and reactive to light, extraocular movements intact, sclera anicteric, conjunctiva are normal. ENT: TMs normal, nares patent, oropharynx clear without exudates. Moist mucous membranes. NECK: Normal range of motion, supple without lymphadenopathy or JVD. LUNGS: Breath sounds clear to auscultation bilaterally and equal. No wheezes rales or rhonchi. HEART: Regular rate and rhythm without murmurs, rubs or gallops. ABDOMEN: Mild epigastric, right upper and left upper quadrant tenderness. Greatest in the left upper quadrant. No lower abdominal tenderness. BACK: No CVA tenderness, no spinal tenderness, step-offs or deformities EXTREMITIES: Normal range of motion, no pitting or edema. No clubbing or cyanosis. NEUROLOGICAL: Cranial nerves II through XII grossly intact. Normal speech, normal gait. 5/5 strength, normal movement in all extremities, normal sensation PSYCH: Normal mood, normal affect. SKIN: Warm, dry, normal turgor, no visible rashes or lesions. Source: Patient Exam Limitations: No limitations - Personal History LMP (Females 10-55): 22-28 Days Ago Current Tetanus/Diphtheria Vaccine: Yes Tetanus Vaccine Date: 2013 - Medical/Surgical History Hx Asthma: Yes Hx Chronic Respiratory Disease: No Hx Diabetes: Yes Hx Cardiac Disease: No Hx Renal Disease: No Hx Cirrhosis: No Hx Alcoholism: No Hx HIV/AIDS: No Hx Splenectomy or Spleen Trauma: No Other PMH: esophageal reflux, anxiety, bipolar , ADHD, bladder control issues. left elbow surgery and 2 left ankle surgery-Dx with regional complex pain syndrome., PNA. "pre-diabetic". anya fundip. surg-tubal ligation. septo plasty, turminate reduction - Family History Significant Family History: No pertinent family hx - Social History Smoking Status: Never smoked Alcohol Use: Sober Drug Use: None Constitutional: Initial Vital Signs Temperature (C) 36.8 C 08/23/16 16:05 Heart Rate 78 08/23/16 16:05 Respiratory Rate 17 08/23/16 16:05 Blood Pressure 115/89 H 08/23/16 16:05 O2 Sat (%) 93 08/23/16 16:05 O2 Delivery Mode Room Air Allergies/Adverse Reactions: hydrocodone bitartrate [From Vicodin] Allergy (Intermediate, Verified 08/23/16 16:03) Vomiting metformin Allergy (Mild, Verified 08/23/16 16:03) Rash adhesive tape Allergy (Verified 08/23/16 16:03) Rash Milk Containing Products [dairy] Allergy (Verified 08/23/16 16:03) Dyspnea polyethylene glycol [From Golytely] Allergy (Verified 08/23/16 16:03) polyethylene glycol 3350 [From Golytely] Allergy (Verified 08/23/16 16:03) potassium chloride [From Golytely] Allergy (Verified 08/23/16 16:03) sodium [From Golytely] Allergy (Verified 08/23/16 16:03) sodium bicarbonate [From Golytely] Allergy (Verified 08/23/16 16:03) sodium chloride [From Golytely] Allergy (Verified 08/23/16 16:03) sodium sulfate [From Golytely] Allergy (Verified 08/23/16 16:03) sodium sulfate anhydrous [From Golytely] Allergy (Verified 08/23/16 16:03) golight Allergy (Intermediate, Uncoded 07/11/16 19:06) Vomiting other allergy Allergy (Uncoded 07/11/16 19:06) Home Medications: Medication Instructions Recorded ARIPiprazole [Abilify 10 mg (*)] 10 mg PO DAILY 11/16/12 Montelukast Sodium [Singulair 10 10 mg PO HS 11/16/12 mg (*)] OXcarbazepine [Trileptal 300mg (*)] 600 mg PO BID 11/16/12 Pregabalin [Lyrica 75mg (*)] 75 mg PO BID 11/16/12 Methylphenidate HCl [METADATE CD] 10 mg PO DAILY 11/21/13 LORazepam [Ativan (*)] 1 mg PO HS 11/22/13 Levalbuterol 0.63 mg [Xopenex 0.63 mg IH Q6 PRN #1 deyvial 11/23/13 0.63MG Neb (*)] Diclofenac Sodium [Voltaren 75 MG 75 mg PO BID 02/22/16 (*)] Ferrous Sulfate [Ferrous Sulf 325 325 mg PO DAILY 02/22/16 MG (*)] Mometasone/Formoterol [Dulera 200 2 puffs IH BID 02/22/16 Mcg/5 Mcg Inhaler] Oxybutynin Chloride [OXYBUTYNIN 5 mg PO DAILY 02/22/16 CHLORIDE ER] oxyCODONE HCL [Roxicodone] 5 mg PO Q6H PRN 02/22/16 Cetirizine [ZyrTEC 10 mg (*)] 10 mg PO DAILY 05/18/16 Herbals/Supplements -Info Only 1 ea PO DAILY 05/18/16 LORazepam [Ativan (*)] 1 mg PO DAILY PRN 05/18/16 Levalbuterol Inhaler [Xopenex Hfa 1 puffs IH Q6H PRN 05/18/16 Inhaler (*)] Ondansetron Odt [Zofran Odt] 4 mg PO Q4PRN PRN #4 tab 06/10/16 Dicyclomine [Bentyl 20 MG (*)] 20 mg PO QID #30 tab 08/23/16 Medical Decision Making - Diagnostics Imaging: Discussed imaging studies w/ community organization worker Radiologist ED Course/Re-evaluation: 6:10 p.[address]. we discussed the CT and lab results. The patient is feeling completely better. Her abdominal exam is benign. We discussed expected course and indications for returning. She is requesting an anti spasmodic. Differential Diagnosis: Partial list of the Differential diagnosis considered include but were not limited to; gastritis, hernia, obstruction, chronic pain and although unlikely based on the history and physical exam, I also considered the perforation, dehiscence, volvulus. I discussed these differential diagnoses and the plan with the patient as well as the usual and expected course. The patient understands that the diagnosis is provisional and that in medicine we are not always correct and that further workup is often warranted. Usual and customary warnings were given. All of the patient's questions were answered. The patient was instructed to return to the emergency department should the symptoms at all worsen or return, otherwise to followup with the physician as we discussed. - Data Points Laboratory Results: Laboratory Results 08/23/16 17:03 08/23/16 17:03 Medications Given: Discontinued Medications Haloperidol Lactate (Haldol Injection) 5 mg IVP EDNOW ONE Stop: 08/23/16 16:45 Last Admin: 08/23/16 17:05 Dose: 5 mg Hydromorphone HCl (Dilaudid) 0.5 mg IVP EDNOW ONE Stop: 08/23/16 16:44 Last Admin: 08/23/16 17:05 Dose: 0.5 mg Sodium Chloride (Ns) 1,000 mls @ 0 mls/hr IV ONCE ONE; Wide Open PRN Reason: Protocol Stop: 08/23/16 16:44 Last Admin: 08/23/16 17:06 Dose: 1,000 mls Famotidine/Sodium Chloride (Pepcid 20 Mg (Premix)) 50 mls @ 200 mls/hr IV EDNOW ONE Stop: 08/23/16 16:57 Last Admin: 08/23/16 17:05 Dose: 50 mls Ketorolac Tromethamine (Toradol) 15 mg IVP EDNOW ONE Stop: 08/23/16 16:45 Last Admin: 08/23/16 17:05 Dose: 15 mg Ondansetron HCl (Zofran) 4 mg IVP EDNOW ONE Stop: 08/23/16 16:44 Last Admin: 08/23/16 17:05 Dose: 4 mg Departure - Departure Disposition: Home, Routine, Self-Care Clinical Impression: Abdominal pain Qualifiers: Abdominal location: epigastric Qualified Code(s): R10.13 - Epigastric pain Condition: Fair Instructions: Abdominal Pain (ED) Referrals: NONE *PRIMARY CARE P,. [Primary Care Provider] - As per Instructions Prescriptions: Dicyclomine [Bentyl 20 MG (*)] 20 mg PO QID #30 tab
[2016-08-23 17:11] LABS: % IMMATURE GRANULYOCYTES 0.4 % (0.0-1.1); ABSOLUTE IMMATURE GRANULOCYTES 0.04 10^3/uL (0.00-0.10); ADD DIFF? NO; ADD MORPH? NO; ADD SCAN? NO; ATYPICAL LYMPHOCYTE FLAG 10 (0-99); FRAGMENT RBC FLAG 0 (0-99); HEMATOCRIT 43.6 % (38.0-47.0); HEMOGLOBIN 15.3 g/dL (12.6-16.3); LEFT SHIFT FLG 0 (0-99); LIPEMIA HEMOLYSIS FLAG 90 (0-99); MEAN CELL HEMOGLOBIN 32.5 pg (27.9-34.1); MEAN CELL HEMOGLOBIN CONCENTR. 35.1 g/dL (32.4-36.7); MEAN CELL VOLUME 92.6 fL (81.5-99.8); MEAN PLATELET VOLUME 9.5 fL (8.7-11.7); PLATELET CLUMPS FLAG 0 (0-99); PLATELET COUNT 216 10^3/uL (150-400); RED BLOOD CELL COUNT 4.71 10^6/uL (4.18-5.33); RED CELL DISTRIBUTION WIDTH 13.2 % (11.5-15.2)
[2016-08-23 17:22] LABS: ALANINE AMINOTRANSFERASE 128 IU/L (9-52); ALBUMIN 4.4 g/dL (3.5-5.0); ALKALINE PHOSPHATASE 93 IU/L (38-126); ANION GAP 13 mEq/L (8-16); ASPARTATE AMINOTRANSFERASE 73 IU/L (14-46); BILIRUBIN,TOTAL 0.5 mg/dL (0.1-1.4); BILIRUBIN-CONJUGATED 0.5 mg/dL (0.0-0.5); CALCIUM 9.6 mg/dL (8.5-10.4); CARBON DIOXIDE 27 mEq/l (22-31); CHLORIDE 97 mEq/L (97-110); CREATININE 0.8 mg/dL (0.6-1.0); GLOMERULAR FILTRATION RATE > 60; GLUCOSE 143 mg/dL (70-100); POTASSIUM 4.4 mEq/L (3.5-5.2); SODIUM 137 mEq/L (134-144); TOTAL PROTEIN 7.3 g/dL (6.3-8.2)
[2016-08-23] MEDS ORDERED: IOPAMIDOL (ISOVUE-300) 100 ML BTL ONE (17:38)
[2016-08-23 17:59] LABS: COLOR YELLOW; LEUKOCYTE ESTERASE,URINE NEGATIVE (NEGATIVE); NITRITE,URINE NEGATIVE (NEGATIVE)
[2016-08-23 18:11] LABS: BACTERIA TRACE /hpf (NONE SEEN); MUCUS TRACE /lpf (NONE-1+); RBC,URINE 50-182 /hpf (0-3)
[2016-08-23 18:59] VITALS: BP 130/78; PULSE 80; RESP 14; TEMP 98.4; O2SAT 94
== END 2016-08-23 18:58 | disposition home or self-care (01) ==
DX: R10.13 Epigastric pain (principal); J45.909 Unspecified asthma, uncomplicated; E11.9 Type 2 diabetes mellitus without complications
CPT/HCPCS: 96374; J1170; J1885; J2405; Q9967

== ENCOUNTER 2016-09-12 17:28 | Emergency (ER) | payer OTHER ==
[2016-09-12] MEDS ORDERED: oxyCODONE IR 5 MG TAB PO ONE (17:48)
--- NOTE | 2016-09-12 17:48 | EDPHY ---
H & P Time Seen by Provider: 09/12/16 17:39 HPI/ROS: CHIEF COMPLAINT: left ankle injury HISTORY OF PRESENT ILLNESS: 31-year-old female with remote history of left ankle surgery Dr. Rachel Santillan in 2011, rolled her ankle 2 weeks ago and was seen by Dr. Rachel Santillan in the office 1 week ago, placed in a walking boot. Today she was performing her ankle exercise and felt something "pop" in her lateral ankle and she is now unable to bear weight as associated pain at the lateral ankle. No discoloration. No paresthesia. No proximal tibia or fibula pain or injury. No foot or 5th metatarsal pain. No fall from height. She took a taxi to the emergency department PHYSICAL EXAM (Prior to examination, patient consented to physical exam, hands were washed and my usual and customary physical exam procedures followed) 1) GENERAL: Well-developed, well-nourished, alert and oriented. . 2) HEAD: Normocephalic 3) HEENT: Pupils equal, round, reactive to light bilaterally. 4) LUNGS: Breathing comfortably. 5) MUSCULOSKELETAL: Tender to palpation left lateral malleolus. No visible or palpable abnormality beyond pain. proximal tibia and fibula nontender . Head fibula nontender. Knee nontender with full range of motion .5th MT nontender negative Babcock test, compartments soft 6) SKIN: intact no tenting 7) VASCULAR: DP,PT pulses and cap refill present and brisk DIFFERENTIAL DIAGNOSIS: in no particular order including but not limited to fracture, sprain, compartment syndrome Procedure: Crutches indications for crutch use discussed with patient. Patient fitted for crutches by ER staff. Observed ambulating with crutches. I think the patient has the capacity to safely use crutches. Usual and customary crutch walking precautions provided The patient was repeated for her walking boot which she has pre-hospitally Smoking Status: Never smoked Constitutional: Initial Vital Signs Temperature (C) 36.6 C 09/12/16 17:33 Heart Rate 99 09/12/16 17:33 Respiratory Rate 16 09/12/16 17:33 Blood Pressure 157/126 H 09/12/16 17:33 O2 Sat (%) 93 06/28/17 17:33 O2 Delivery Mode Room Air Allergies/Adverse Reactions: hydrocodone bitartrate [From Vicodin] Allergy (Intermediate, Verified 08/23/16 16:03) Vomiting metformin Allergy (Mild, Verified 08/23/16 16:03) Rash adhesive tape Allergy (Verified 08/23/16 16:03) Rash Milk Containing Products [dairy] Allergy (Verified 08/23/16 16:03) Dyspnea polyethylene glycol [From Golytely] Allergy (Verified 08/23/16 16:03) polyethylene glycol 3350 [From Golytely] Allergy (Verified 08/23/16 16:03) potassium chloride [From Golytely] Allergy (Verified 08/23/16 16:03) sodium [From Golytely] Allergy (Verified 08/23/16 16:03) sodium bicarbonate [From Golytely] Allergy (Verified 08/23/16 16:03) sodium chloride [From Golytely] Allergy (Verified 08/23/16 16:03) sodium sulfate [From Golytely] Allergy (Verified 08/23/16 16:03) sodium sulfate anhydrous [From Golytely] Allergy (Verified 08/23/16 16:03) golight Allergy (Intermediate, Uncoded 07/11/16 19:06) Vomiting other allergy Allergy (Uncoded 07/11/16 19:06) Home Medications: Medication Instructions Recorded ARIPiprazole [Abilify 10 mg (*)] 10 mg PO DAILY 11/16/12 Montelukast Sodium [Singulair 10 10 mg PO HS 11/16/12 mg (*)] OXcarbazepine [Trileptal 300mg (*)] 600 mg PO BID 11/16/12 Pregabalin [Lyrica 75mg (*)] 75 mg PO BID 11/16/12 Methylphenidate HCl [METADATE CD] 10 mg PO DAILY 11/21/13 LORazepam [Ativan (*)] 1 mg PO HS 11/22/13 Levalbuterol 0.63 mg [Xopenex 0.63 mg IH Q6 PRN #1 deyvial 11/23/13 0.63MG Neb (*)] Diclofenac Sodium [Voltaren 75 MG 75 mg PO BID 02/22/16 (*)] Ferrous Sulfate [Ferrous Sulf 325 325 mg PO DAILY 02/22/16 MG (*)] Mometasone/Formoterol [Dulera 200 2 puffs IH BID 02/22/16 Mcg/5 Mcg Inhaler] Oxybutynin Chloride [OXYBUTYNIN 5 mg PO DAILY 02/22/16 CHLORIDE ER] oxyCODONE HCL [Roxicodone] 5 mg PO Q6H PRN 02/22/16 Cetirizine [ZyrTEC 10 mg (*)] 10 mg PO DAILY 05/18/16 Herbals/Supplements -Info Only 1 ea PO DAILY 05/18/16 LORazepam [Ativan (*)] 1 mg PO DAILY PRN 05/18/16 Levalbuterol Inhaler [Xopenex Hfa 1 puffs IH Q6H PRN 05/18/16 Inhaler (*)] Ondansetron Odt [Zofran Odt] 4 mg PO Q4PRN PRN #4 tab 06/10/16 Dicyclomine [Bentyl 20 MG (*)] 20 mg PO QID #30 tab 08/23/16 Oxycodone HCl [Oxyir] 5 mg PO Q6 PRN #5 capsule 09/12/16 MDM/Departure - MDM Imaging Results: Imaging Impressions Ankle X-Ray 09/12/16 17:48 Impression: 1. Diffuse soft tissue swelling. 2. No definite fracture of the left ankle. 3. Consider CT imaging if there is continued clinical concern. Images reviewed by myself Medications Given: Discontinued Medications Oxycodone HCl (Oxycodone Ir) 5 mg PO EDNOW ONE Stop: 09/12/16 17:49 Last Admin: 09/12/16 18:00 Dose: 5 mg ED Course/Re-evaluation: Re-evaluation with serial exams. Doubt compartment syndrome. Discussed limitations of x-ray. Informed that ligamentous or other soft tissue injury not ruled out. I do not think that emergent podiatry consultation is indicated. Recommend she follow up with her signal apprentice Dr. Rachel Santillan. The patient has a listed Vicodin allergy but states that she is able to tolerate Oxy IR well. - Depart Disposition: Home, Routine, Self-Care Clinical Impression: Left ankle sprain Qualifiers: Encounter type: initial encounter Involved ligament of ankle: unspecified ligament Qualified Code(s): S93.402A - Sprain of unspecified ligament of left ankle, initial encounter Condition: Good Instructions: Ankle Sprain (ED) Additional Instructions: Return to the ER immediately if you experience discoloration, have worsening pain, numbness, tingling, or any other symptoms that concern you. If you received x-rays in the emergency department today, be advised, that ligamentous , tendon, muscular, and other non-bony injury cannot be fully ruled out. Try to keep your affected extremity elevated above the level of your chest, and keep cold packs on the affected area, for the next 48 hours. Prescriptions: Oxycodone HCl [Oxyir] 5 mg PO Q6 PRN #5 capsule PRN Reason: Pain, Severe Able To Take Po Referrals: Rachel Santillan DPM [Doctor of Podiatric Medicine] - 1-2 days without fail
[2016-09-12 18:51] VITALS: BP 149/72; PULSE 87; RESP 20; TEMP 98.2; O2SAT 94
== END 2016-09-12 18:54 | disposition home or self-care (01) ==
DX: S93.402A Sprain of unspecified ligament of left ankle, initial encounter (principal); X58.XXXA Exposure to other specified factors, initial encounter; Y93.A3 Activity, aerobic and step exercise

== ENCOUNTER 2016-10-25 05:32 | Emergency (ER) | payer OTHER ==
--- NOTE | 2016-10-25 05:41 | EDPHY ---
H & P Stated Complaint: l ear pain x 1 week, fever, N/V today, seen at urgent care on sat HPI/ROS: HPI CHIEF COMPLAINT: Left ear pain HISTORY OF PRESENT ILLNESS: This patient very pleasant 31-year-old female, she presents emergency room at 5:45 a.m. in the morning left ear pain and an episode of nausea vomiting. She states she was recently seen at [facility] where she was diagnosed with a left ear infection. She was placed on cefdinir. She has a follow-up appointment with ear nose and throat this evening at 4:00 p.m.. She decided come to the emergency room as she when out had [employer] breakfast this morning with her as her works at 5: 00 a.m. shortly after eating I hope she got home felt nauseous and had an episode of vomiting. This exacerbated her left ear pain. She denies any neck pain, neck stiffness or headache. She has not had any drainage from her ear. I do not appreciate any mastoid tenderness on exam. She does have some left maxillary and anterior frontal sinus pain. Is also noted inner ear canal exam rare canals clean however her left TM is slightly erythematous. Right TM no significant erythema or bulge. She distally tells me that she thought she had a fever yesterday she felt very flushed and warm. She has not had any chest pain or shortness of breath. Denies cough. Denies rash. Past Medical History: Anxiety, bipolar disorder, GERD, migraine headache Past Surgical History: Tubal ligation, fundal plication Social History: Denies daily use of drugs alcohol tobacco products. Family History: Noncontributory ROS REVIEW OF SYSTEMS: A comprehensive 10 point review of systems is otherwise negative aside from elements mentioned in the history of present illness. Exam Constitutional triage nursing summary reviewed, vital signs reviewed, awake/ alert. Eyes normal conjunctivae and sclera, EOMI, PERRLA. HENT right TM normal in canal normal, left TM slight erythematous with bulge, no mastoid tenderness, she also additionally has some mild tenderness palpation of the left anterior frontal sinus and left maxillary sinus. Her nose exam is unremarkable there is no significant discharge from her nose. There is no evidence of oropharyngeal infection on exam, or gumline swelling, there is no facial swelling or redness, I do not appreciate a significant lymphadenopathy moist mucus membranes, no epistaxis, neck supple/ no meningismus, no raccoon eyes. Respiratory clear to auscultation bilaterally, normal breath sounds, no respiratory distress, no wheezing. Cardiovascular rate normal, regular rhythm, no murmur, no edema, distal pulses normal. Gastrointestinal soft, non-tender, no rebound, no guarding, normal bowel sounds, no distension, no pulsatile mass. Genitourinary no CVA tenderness. Musculoskeletal no midline vertebral tenderness, full range of motion, no calf swelling, no tenderness of extremities, no meningismus, good pulses, neurovascularly intact. Skin pink, warm, & dry, no rash, skin atraumatic. Neurologic awake, alert and oriented x 3, AAOx3, moves all 4 extremities equally, motor intact, sensory intact, CN II-XII intact, normal cerebellar, normal vision, normal speech. Psychiatric normal mood/affect. Heme/Lymph/Immune no lymphadenopathy. Differential Diagnosis: Includes but is not limited to in a particular order, sinusitis, left maxillary sinusitis, left anterior frontal sinusitis, otitis media, doubt intracranial abscess, doubt mastoiditis given no significant tenderness over the mastoid. Medical Decision Making: Plan for this patient Braeden here in the emergency room as well as Malik, she tells me she vomited her cefdinir dose up earlier this evening I will provide her with a dose of cefdinir. Given that she appears well nontoxic I do not feel that she needs any imaging. Her vital signs are stable without fever here. I do recommend she continue cefdinir and follows up with ENT this evening. Headache is completely reasonable to follow- up ENT later today. Re-evaluation: 0601AM: Dose of cefdinir, Zofran and Percocet as been ordered here in the emergency room. Vital signs have been reviewed. Source: Patient - Personal History LMP (Females 10-55): Now Current Tetanus/Diphtheria Vaccine: Yes Tetanus Vaccine Date: 2013 - Medical/Surgical History Hx Asthma: Yes Hx Chronic Respiratory Disease: No Hx Diabetes: Yes Hx Cardiac Disease: No Hx Renal Disease: No Hx Cirrhosis: No Hx Alcoholism: No Hx HIV/AIDS: No Hx Splenectomy or Spleen Trauma: No Other PMH: esophageal reflux, anxiety, bipolar , ADHD, bladder control issues, migraines. left elbow surgery and 2 left ankle surgery-Dx with regional complex pain syndrome., PNA. "pre-diabetic". anya fundip. surg-tubal ligation. septo plasty, turminate reduction - Social History Smoking Status: Never smoked Constitutional: Initial Vital Signs Temperature (C) 36.6 C 10/25/16 05:33 Heart Rate 79 10/25/16 05:33 Respiratory Rate 16 10/25/16 05:33 Blood Pressure 144/92 H 10/25/16 05:33 O2 Sat (%) 92 10/25/16 05:33 O2 Delivery Mode Room Air Allergies/Adverse Reactions: hydrocodone bitartrate [From Vicodin] Allergy (Intermediate, Verified 10/25/16 05:39) Vomiting metformin Allergy (Mild, Verified 10/25/16 05:39) Rash adhesive tape Allergy (Verified 10/25/16 05:39) Rash amoxicillin Allergy (Verified 10/25/16 05:40) Rash Milk Containing Products [dairy] Allergy (Verified 10/25/16 05:39) Dyspnea polyethylene glycol [From Golytely] Allergy (Verified 10/25/16 05:39) polyethylene glycol 3350 [From Golytely] Allergy (Verified 10/25/16 05:39) potassium chloride [From Golytely] Allergy (Verified 10/25/16 05:39) sodium [From Golytely] Allergy (Verified 10/25/16 05:39) sodium bicarbonate [From Golytely] Allergy (Verified 10/25/16 05:39) sodium chloride [From Golytely] Allergy (Verified 10/25/16 05:39) sodium sulfate [From Golytely] Allergy (Verified 08/23/16 16:03) sodium sulfate anhydrous [From Golytely] Allergy (Verified 08/23/16 16:03) golight Allergy (Intermediate, Uncoded 07/11/16 19:06) Vomiting other allergy Allergy (Uncoded 07/11/16 19:06) Home Medications: Medication Instructions Recorded ARIPiprazole [Abilify 10 mg (*)] 10 mg PO DAILY 11/16/12 Montelukast Sodium [Singulair 10 10 mg PO HS 11/16/12 mg (*)] OXcarbazepine [Trileptal 300mg (*)] 600 mg PO BID 11/16/12 Pregabalin [Lyrica 75mg (*)] 75 mg PO BID 11/16/12 Methylphenidate HCl [METADATE CD] 10 mg PO DAILY 11/21/13 LORazepam [Ativan (*)] 1 mg PO HS 11/22/13 Levalbuterol 0.63 mg [Xopenex 0.63 mg IH Q6 PRN #1 deyvial 11/23/13 0.63MG Neb (*)] Diclofenac Sodium [Voltaren 75 MG 75 mg PO BID 02/22/16 (*)] Mometasone/Formoterol [Dulera 200 2 puffs IH BID 02/22/16 Mcg/5 Mcg Inhaler] Oxybutynin Chloride [OXYBUTYNIN 5 mg PO DAILY 02/22/16 CHLORIDE ER] oxyCODONE HCL [Roxicodone] 5 mg PO Q6H PRN 02/22/16 Cetirizine [ZyrTEC 10 mg (*)] 10 mg PO DAILY 05/18/16 Herbals/Supplements -Info Only 1 ea PO DAILY 05/18/16 LORazepam [Ativan (*)] 1 mg PO DAILY PRN 05/18/16 Levalbuterol Inhaler [Xopenex Hfa 1 puffs IH Q6H PRN 05/18/16 Inhaler (*)] Ondansetron Odt [Zofran Odt] 4 mg PO Q4PRN PRN #4 tab 06/10/16 Oxycodone HCl [Oxyir] 5 mg PO Q6 PRN #5 capsule 09/12/16 Medical Decision Making - Data Points Medications Given: Discontinued Medications Ondansetron HCl (Zofran Odt) 4 mg PO EDNOW ONE Stop: 10/25/16 05:53 Last Admin: 10/25/16 05:59 Dose: 4 mg Oxycodone/Acetaminophen (Percocet 5/325) 1 tab PO EDNOW ONE Stop: 10/25/16 05:53 Last Admin: 10/25/16 05:59 Dose: 1 tab Departure - Departure Disposition: Home, Routine, Self-Care Clinical Impression: Otitis media Qualifiers: Otitis media type: unspecified Chronicity: acute Laterality: unspecified laterality Qualified Code(s): H66.90 - Otitis media, unspecified, unspecified ear Condition: Good Instructions: Sinusitis (ED), Otitis Media (ED) Additional Instructions: 1. Return emergency room if you have worsening symptoms questions or concerns. 2. I do recommend he continue to follow up with ENT this evening. Please try not to miss this appointment. 3. Continue her antibiotics as previously prescribed Referrals: EARL MENDOZA [Other] - As per Instructions Stuart Jordan MD [Medical Doctor] - As per Instructions
[2016-10-25] MEDS ORDERED: OXYCODONE/APAP 5/325 TAB PO ONE (05:52)
[2016-10-25] MEDS ORDERED: ONDANSETRON DISINTEGRATING 4 MG TAB PO ONE (05:52)
[2016-10-25] MEDS ORDERED: CEFDINIR 300 MG CAP PO ONE (05:55)
[2016-10-25 06:44] VITALS: BP 135/76; PULSE 82; RESP 18; TEMP 98.1; O2SAT 96
[2016-10-25] MEDS ORDERED: CEFDINIR 300 MG CAP PO SCH (09:00)
== END 2016-10-25 06:43 | disposition home or self-care (01) ==
DX: H66.92 Otitis media, unspecified, left ear (principal); J45.909 Unspecified asthma, uncomplicated

== ENCOUNTER 2016-10-25 19:22 | Emergency (ER) | payer OTHER ==
[2016-10-25 19:39] VITALS: RESP 18
[2016-10-25] MEDS ORDERED: MECLIZINE HCL 25 MG TAB PO ONE (20:07)
--- NOTE | 2016-10-25 20:11 | EDPHY ---
H & P Time Seen by Provider: 10/25/16 20:06 HPI/ROS: CHIEF COMPLAINT: Dizziness HISTORY OF PRESENT ILLNESS: This patient is a 31 year old female complaining of dizziness associated with an ear infection diagnosed Saturday, four days ago. She has been taking Cefdinir for relief of symptoms, but continues to have left ear pressure which waxes and wanes. She visited ENT providers today who suggested she get a sinus CT tomorrow for further evaluation. Today while shopping, she developed a dizzy sensation which she describes as the room spinning around her. She has had similar episodes in the past. Her dizziness is her primary concern today. No fever, chills, headache, chest pain, shortness of breath, or other associated symptoms. REVIEW OF SYSTEMS: A 10 point review of systems was performed and is negative with the exception of the elements mentioned in the history of present illness. Past Medical/Surgical History: Esophageal reflux, Anxiety, Bipolar , ADHD, Migraines, Orthopedic surgeries, Regional complex pain syndrome, Pre-diabetic, Conner fundoplication, Tubal ligation. Social History: . Lives in [place]. Smoking Status: Never smoked Physical Exam: General Appearance: Alert, no distress Eyes: Horizontal nystagmus with right gaze. Pupils equal and round, no conjunctival pallor or injection ENT, Mouth: left TM-good light reflex, TM is opaque with fluid behind, Mucous membranes moist Neck: Normal inspection, no adenopathy Respiratory: Lungs are clear to auscultation Cardiovascular: Regular rate and rhythm Gastrointestinal: Abdomen is soft and non- tender Neurological: A&O, CN II-XII intact, motor/sensory intact, gait normal Skin: Warm and dry, no rash Extremities: Nontender, no pedal edema Psychiatric: Mood and affect normal Constitutional: Initial Vital Signs Temperature (C) 36.7 C 10/25/16 19:36 Heart Rate 75 10/25/16 19:36 Respiratory Rate 18 10/25/16 19:36 Blood Pressure 137/100 H 10/25/16 19:36 O2 Sat (%) 94 10/25/16 19:36 O2 Delivery Mode Room Air Allergies/Adverse Reactions: hydrocodone bitartrate [From Vicodin] Allergy (Intermediate, Verified 10/25/16 05:39) Vomiting metformin Allergy (Mild, Verified 10/25/16 05:39) Rash adhesive tape Allergy (Verified 10/25/16 05:39) Rash amoxicillin Allergy (Verified 10/25/16 05:40) Rash Milk Containing Products [dairy] Allergy (Verified 10/25/16 05:39) Dyspnea polyethylene glycol [From Golytely] Allergy (Verified 10/25/16 05:39) polyethylene glycol 3350 [From Golytely] Allergy (Verified 10/25/16 05:39) potassium chloride [From Golytely] Allergy (Verified 10/25/16 05:39) sodium [From Golytely] Allergy (Verified 10/25/16 05:39) sodium bicarbonate [From Golytely] Allergy (Verified 10/25/16 05:39) sodium chloride [From Golytely] Allergy (Verified 10/25/16 05:39) sodium sulfate [From Golytely] Allergy (Verified 08/23/16 16:03) sodium sulfate anhydrous [From Golytely] Allergy (Verified 08/23/16 16:03) golight Allergy (Intermediate, Uncoded 07/11/16 19:06) Vomiting other allergy Allergy (Uncoded 07/11/16 19:06) Home Medications: Medication Instructions Recorded ARIPiprazole [Abilify 10 mg (*)] 10 mg PO DAILY 11/16/12 Montelukast Sodium [Singulair 10 10 mg PO HS 11/16/12 mg (*)] OXcarbazepine [Trileptal 300mg (*)] 600 mg PO BID 11/16/12 Pregabalin [Lyrica 75mg (*)] 75 mg PO BID 11/16/12 Methylphenidate HCl [METADATE CD] 10 mg PO DAILY 11/21/13 LORazepam [Ativan (*)] 1 mg PO HS 11/22/13 Levalbuterol 0.63 mg [Xopenex 0.63 mg IH Q6 PRN #1 deyvial 11/23/13 0.63MG Neb (*)] Diclofenac Sodium [Voltaren 75 MG 75 mg PO BID 02/22/16 (*)] Mometasone/Formoterol [Dulera 200 2 puffs IH BID 02/22/16 Mcg/5 Mcg Inhaler] Oxybutynin Chloride [OXYBUTYNIN 5 mg PO DAILY 02/22/16 CHLORIDE ER] oxyCODONE HCL [Roxicodone] 5 mg PO Q6H PRN 02/22/16 Cetirizine [ZyrTEC 10 mg (*)] 10 mg PO DAILY 05/18/16 Herbals/Supplements -Info Only 1 ea PO DAILY 05/18/16 LORazepam [Ativan (*)] 1 mg PO DAILY PRN 05/18/16 Levalbuterol Inhaler [Xopenex Hfa 1 puffs IH Q6H PRN 05/18/16 Inhaler (*)] Ondansetron Odt [Zofran Odt] 4 mg PO Q4PRN PRN #4 tab 06/10/16 Oxycodone HCl [Oxyir] 5 mg PO Q6 PRN #5 capsule 09/12/16 Meclizine HCl [Meclizine HCl 25 mg 25 mg PO TID PRN #15 tab 10/25/16 (RX,OTC)] Medical Decision Making ED Course/Re-evaluation: 31 year old female presents with intermittent dizziness. Physical exam reveals slight horizontal nystagmus with rightward gaze. She has followed up with ENT recently for an ear/sinus infection, and is scheduled for CT tomorrow. c/w peripheral vertigo. Normal neuro exam and no concerning signs/sx of a central etiology. Meclizine 25mg orally given. Plan to discharge home in good condition with prescription for Meclizine. She will continue to follow up with her ear nose and throat providers for management of her symptoms. The patient is comfortable with this plan. Differential Diagnosis: includes though not limited to CVA, TIA, Meniere's disease, hypotension, medical effect - Data Points Medications Given: Discontinued Medications Meclizine HCl (Meclizine Hcl) 25 mg PO EDNOW ONE Stop: 10/25/16 20:08 Last Admin: 10/25/16 20:31 Dose: 25 mg Departure - Departure Disposition: Home, Routine, Self-Care Clinical Impression: Vertigo Condition: Good Instructions: Vertigo (ED) Additional Instructions: 1. Take meclizine as prescribed for vertigo. This medication is also available over the counter. 2. Continue taking your antibiotic as prescribed. It is important to finish your entire course even if you are feeling better. 3. Follow up with your ear, nose, and throat providers for continued management of your symptoms. 4. Return to the emergency department for worsening dizziness, fainting, severe headache or other worsening of condition. Referrals: Kenyatta Coates NP [Primary Care Provider] - As per Instructions Camilla Sue PA [Physician Brisket Puller] - As per Instructions Prescriptions: Meclizine HCl [Meclizine HCl 25 mg (RX,OTC)] 25 mg PO TID PRN #15 tab PRN Reason: Dizziness Report Scribed for: Halie Morelos Report Scribed by: Priti Crum Date of Report: 10/25/16 Time of Report: 20:09 Physician Review and Approval Statement: 10/25/16 20:09 Portions of this note were transcribed by a medical assistant prn. I personally performed a history, physical exam, medical decision making, and confirmed accuracy of information the transcribed note.
[2016-10-25 20:49] VITALS: BP 104/87; PULSE 59; TEMP 97.7; O2SAT 97
== END 2016-10-25 20:52 | disposition home or self-care (01) ==
LOC: EDUNIT#
DX: R42 Dizziness and giddiness (principal)

== ENCOUNTER → 2016-10-26 | Outpatient (CLI) | payer OTHER | LOC: FIMAGING 13:41 | PROVIDERS: ATTEND Otolaryngology | DX: R51 Headache (principal); R42 Dizziness and giddiness ==

== ENCOUNTER → 2016-10-28 | Outpatient (CLI) | payer OTHER ==
[~2016-10-28] MED LIST: GADOBUTROL 10 ML VIAL IVP ONE
== END ==
LOC: FIMAGING 07:39
PROVIDERS: ATTEND Psychiatry & Neurology Neurology
DX: R93.0 Abnormal findings on diagnostic imaging of skull and head, not elsewhere classified (principal); E34.8 Other specified endocrine disorders
CPT/HCPCS: A9585

== ENCOUNTER 2016-11-01 12:53 | Emergency (ER) | payer OTHER ==
[2016-11-01 13:02] VITALS: TEMP 98.1
--- NOTE | 2016-11-01 13:43 | EDPHY ---
HPI/HX/ROS/PE/MDM - Data Points Imaging: Discussed imaging studies w/ call center specialist Radiologist Narrative: CHIEF COMPLAINT: Neck pain, Nausea HPI: The patient is a 31-year-old female who complains of neck pain and nausea. The patient reports intermittent episodes of vertigo for the past few days, constant today. She had an episode of emesis this morning and continues to feel nauseous. She took Meclizine at 9am. Patient additionally notes acute neck pain that she woke up with this morning. The neck pain is worse with movement. The patient additionally reports recent left sided otitis media. She had a recent CT that was negative for sinusitis. This morning she developed pain in her right ear. No fever. Patient is currently menstruating, she took Midol today. REVIEW OF SYSTEMS: Aside from elements discussed in the HPI, a comprehensive 10-point review of systems was reviewed and is negative. PMH: Esophageal reflux, Anxiety, Bipolar, ADHD, Migraines, Ortho surgeries, Regional complex pain syndrome, Pre-diabetic. SOCIAL HISTORY: . Lives in [place]. PHYSICAL EXAM: General: Patient is alert, in no acute distress. ENT: Eyes are normal to inspection. ENT inspection normal. TMs normal bilaterally. Neck: Normal inspection. Full range of motion. Respiratory: No respiratory distress. Breath sounds normal bilaterally. Cardiovascular: Regular rate and rhythm. Strong peripheral pulses. Abdomen: The abdomen is nontender to palpation. There are no peritoneal signs. There are normal bowel sounds. Back: Normal to inspection. No tenderness to palpation. Skin: Normal color. No rash. Warm and dry. Extremities: Normal appearance. Full range of motion. Neuro: Oriented x3. Normal motor function. Normal sensory function. (Kendrick Carlin) ED Course: 1540: Patient signed over to me at 3:00 p.[address] shift change. The CT angiogram head and neck are negative for acute dissection or thrombus. This was reported to me by Radiology Dr. Devi. 1543: I did go re-evaluate this patient she still complaining of dizziness. She tells me this is her typical vertigo. I have ordered her 1 L normal saline bolus, 2.5 mg IV Valium, and 25 p.o. meclizine. 1633: I did re-evaluate this patient at this time she is feeling better after IV Valium, meclizine 1 L fluid bolus. She is requesting be discharged home. Do recommend she follows up with her primary care doctor and ENT. Return emergency room if there is any worsening symptoms questions or concerns. ( Ti Bowles) Patient presents with vertigo and neck pain. Patient received Meclizine PO. Plan for CT head and neck. (Kendrick Carlin) - Data Points Imaging Results: Imaging Impressions Head CTA 11/01/16 14:04 Impression: 1. Normal intracranial arterial circulation. No evidence of embolic disease or aneurysm. 2. Patent venous system. 3. Probably benign 5 mm right paramedian suprasellar nodule is unchanged. Recommend annual follow-up MRI as recommended on previous exam. Findings discussed with Emergency Department physician, Kendrick Carlin MD on 11/01/2016 at 1527 hours. Neck CTA 11/01/16 14:04 Impression: Widely patent carotid and vertebral arteries. No dissection. Measurement of carotid stenosis is based on the residual internal carotid diameter with [place] Symptomatic Carotid Endarterectomy Trial (NASCET) based stenosis levels. Findings discussed with Emergency Department physician, Kendrick Carlin MD on 11/01/2016 at 1527 hours. Laboratory Results: Laboratory Results 11/01/16 15:40 11/01/16 14:25 11/01/16 11/01/16 11/01/16 15:40 14:25 14:25 WBC 9.79 10^3/uL H 10^3/uL REJ (3.80-9.50) RBC 4.88 10^6/uL 10^6/uL REJ (4.18-5.33) Hgb 16.1 g/dL g/dL REJ (12.6-16.3) Hct 44.6 % % REJ (38.0-47.0) MCV 91.4 fL fL REJ (81.5-99.8) MCH 33.0 pg pg REJ (27.9-34.1) MCHC 36.1 g/dL g/dL REJ (32.4-36.7) RDW 11.9 % % REJ (11.5-15.2) Plt Count 268 10^3/uL 10^3/uL REJ (150-400) MPV 8.9 fL fL REJ (8.7-11.7) Neut % (Auto) 78.4 % H % REJ (39.3-74.2) Lymph % (Auto) 16.6 % % REJ (15.0-45.0) Schuyler % (Auto) 4.3 % L % REJ (4.5-13.0) Eos % (Auto) 0.0 % L % REJ (0.6-7.6) Baso % (Auto) 0.3 % % REJ (0.3-1.7) Nucleat RBC Rel Count 0.0 % % REJ (0.0-0.2) Absolute Neuts (auto) 7.67 10^3/uL H 10^3/uL REJ (1.70-6.50) Absolute Lymphs (auto) 1.63 10^3/uL 10^3/uL REJ (1.00-3.00) Absolute Monos (auto) 0.42 10^3/uL 10^3/uL REJ (0.30-0.80) Absolute Eos (auto) 0.00 10^3/uL L 10^3/uL REJ (0.03-0.40) Absolute Basos (auto) 0.03 10^3/uL 10^3/uL REJ (0.02-0.10) Absolute Nucleated RBC 0.00 10^3/uL 10^3/uL REJ (0-0.01) Immature Gran % 0.4 % % REJ (0.0-1.1) Immature Gran # 0.04 10^3/uL 10^3/uL REJ (0.00-0.10) Sodium 130 mEq/L L mEq/L (134-144) Potassium 5.0 mEq/L mEq/L (3.5-5.2) Chloride 94 mEq/L L mEq/L (97-110) Carbon Dioxide 20 mEq/l L mEq/l (22-31) Anion Gap 16 mEq/L mEq/L (8-16) BUN 11 mg/dL mg/dL (7-23) Creatinine 0.7 mg/dL mg/dL (0.6-1.0) Estimated GFR > 60 Glucose 105 mg/dL H mg/dL (70-100) Calcium 9.6 mg/dL mg/dL (8.5-10.4) Medications Given: Discontinued Medications Diazepam (Valium Injection) 2.5 mg IVP EDNOW ONE Stop: 11/01/16 15:43 Last Admin: 11/01/16 15:52 Dose: 2.5 mg Sodium Chloride (Ns) 1,000 mls @ 0 mls/hr IV ONCE ONE PRN Reason: Wide Open Stop: 11/01/16 15:43 Last Admin: 11/01/16 15:50 Dose: 1,000 mls Meclizine HCl (Meclizine Hcl) 25 mg PO ONCE ONE Stop: 11/01/16 15:43 Last Admin: 11/01/16 15:51 Dose: 25 mg General Time Seen by Provider: 11/01/16 13:42 Initial Vital Signs: Initial Vital Signs Temperature (C) 36.7 C 11/01/16 12:56 Heart Rate 77 11/01/16 12:56 Respiratory Rate 18 11/01/16 12:56 Blood Pressure 212/113 H 11/01/16 12:56 O2 Sat (%) 96 11/01/16 12:56 O2 Delivery Mode Room Air Allergies/Adverse Reactions: hydrocodone bitartrate [From Vicodin] Allergy (Intermediate, Verified 11/01/16 12:54) Vomiting metformin Allergy (Mild, Verified 11/01/16 12:54) Rash adhesive tape Allergy (Verified 11/01/16 12:54) Rash amoxicillin Allergy (Verified 11/01/16 12:54) Rash Milk Containing Products [dairy] Allergy (Verified 11/01/16 12:54) Dyspnea polyethylene glycol [From Golytely] Allergy (Verified 11/01/16 12:54) polyethylene glycol 3350 [From Golytely] Allergy (Verified 11/01/16 12:54) potassium chloride [From Golytely] Allergy (Verified 11/01/16 12:54) sodium [From Golytely] Allergy (Verified 11/01/16 12:54) sodium bicarbonate [From Golytely] Allergy (Verified 11/01/16 12:54) sodium chloride [From Golytely] Allergy (Verified 11/01/16 12:54) sodium sulfate [From Golytely] Allergy (Verified 11/01/16 12:54) sodium sulfate anhydrous [From Golytely] Allergy (Verified 11/01/16 12:54) golight Allergy (Intermediate, Uncoded 07/11/16 19:06) Vomiting other allergy Allergy (Uncoded 07/11/16 19:06) Home Medications: Medication Instructions Recorded ARIPiprazole [Abilify 10 mg (*)] 10 mg PO DAILY 11/16/12 Montelukast Sodium [Singulair 10 10 mg PO HS 11/16/12 mg (*)] OXcarbazepine [Trileptal 300mg (*)] 600 mg PO BID 11/16/12 Pregabalin [Lyrica 75mg (*)] 75 mg PO BID 11/16/12 Methylphenidate HCl [METADATE CD] 10 mg PO DAILY 11/21/13 LORazepam [Ativan (*)] 1 mg PO HS 11/22/13 Levalbuterol 0.63 mg [Xopenex 0.63 mg IH Q6 PRN #1 deyvial 11/23/13 0.63MG Neb (*)] Diclofenac Sodium [Voltaren 75 MG 75 mg PO BID 02/22/16 (*)] Mometasone/Formoterol [Dulera 200 2 puffs IH BID 02/22/16 Mcg/5 Mcg Inhaler] Oxybutynin Chloride [OXYBUTYNIN 5 mg PO DAILY 02/22/16 CHLORIDE ER] oxyCODONE HCL [Roxicodone] 5 mg PO Q6H PRN 02/22/16 Cetirizine [ZyrTEC 10 mg (*)] 10 mg PO DAILY 05/18/16 Herbals/Supplements -Info Only 1 ea PO DAILY 05/18/16 LORazepam [Ativan (*)] 1 mg PO DAILY PRN 05/18/16 Levalbuterol Inhaler [Xopenex Hfa 1 puffs IH Q6H PRN 05/18/16 Inhaler (*)] Ondansetron Odt [Zofran Odt] 4 mg PO Q4PRN PRN #4 tab 06/10/16 Oxycodone HCl [Oxyir] 5 mg PO Q6 PRN #5 capsule 09/12/16 Meclizine HCl [Meclizine HCl 25 mg 25 mg PO TID PRN #15 tab 10/25/16 (RX,OTC)] Departure - Departure Disposition: Home, Routine, Self-Care Clinical Impression: Vertigo, Neck pain Condition: Good Instructions: Vertigo (ED), Acute Neck Pain (ED) Additional Instructions: Take Meclizine as directed for recurrent nausea and vomiting. I recommend 600mg Ibuprofen every 6-8 hours as needed for neck pain. Followup with your primary care physician if symptoms persist. Return to the Emergency Department with new or worsening symptoms. Referrals: Kenyatta Coates NP [Primary Care Provider] - As per Instructions Report Scribed for: Kendrick Carlin Report Scribed by: Cindy Corado Date of Report: 11/01/16 Time of Report: 14:10 Physician Review and Approval Statement: Portions of this note were transcribed by a medical cash poster. I personally performed the history, physical exam, and medical decision-making; and confirmed the accuracy of the information in the transcribed note.
[2016-11-01] MEDS ORDERED: IOPAMIDOL (ISOVUE 370) 100 ML BTL IV ONE (14:19)
[2016-11-01 14:50] LABS: ANION GAP 16 mEq/L (8-16); CALCIUM 9.6 mg/dL (8.5-10.4); CARBON DIOXIDE 20 mEq/l (22-31); CHLORIDE 94 mEq/L (97-110); CREATININE 0.7 mg/dL (0.6-1.0); GLOMERULAR FILTRATION RATE > 60; GLUCOSE 105 mg/dL (70-100); SODIUM 130 mEq/L (134-144)
[2016-11-01] MEDS ORDERED: MECLIZINE HCL 25 MG TAB PO ONE (15:42)
[2016-11-01] MEDS ORDERED: DIAZEPAM 10 MG/2 ML SYR IVP ONE (15:42)
[2016-11-01] MEDS ORDERED: NS 1,000 ML IV ONE (15:42)
[2016-11-01 15:46] LABS: % IMMATURE GRANULYOCYTES 0.4 % (0.0-1.1); ABSOLUTE IMMATURE GRANULOCYTES 0.04 10^3/uL (0.00-0.10); ADD DIFF? NO; ADD MORPH? NO; ADD SCAN? NO; ATYPICAL LYMPHOCYTE FLAG 0 (0-99); FRAGMENT RBC FLAG 0 (0-99); HEMATOCRIT 44.6 % (38.0-47.0); HEMOGLOBIN 16.1 g/dL (12.6-16.3); LEFT SHIFT FLG 0 (0-99); LIPEMIA HEMOLYSIS FLAG 90 (0-99); MEAN CELL HEMOGLOBIN CONCENTR. 36.1 g/dL (32.4-36.7); MEAN CELL VOLUME 91.4 fL (81.5-99.8); MEAN PLATELET VOLUME 8.9 fL (8.7-11.7); PLATELET CLUMPS FLAG 0 (0-99); PLATELET COUNT 268 10^3/uL (150-400); RED BLOOD CELL COUNT 4.88 10^6/uL (4.18-5.33); RED CELL DISTRIBUTION WIDTH 11.9 % (11.5-15.2)
[2016-11-01 15:58] VITALS: PULSE 69; O2SAT 95
[2016-11-01 16:40] VITALS: BP 118/66; RESP 20
== END 2016-11-01 16:40 | disposition home or self-care (01) ==
DX: M54.2 Cervicalgia (principal); R42 Dizziness and giddiness
CPT/HCPCS: 96374; Q9967

== ENCOUNTER 2016-12-25 20:46 | Emergency (ER) | payer OTHER ==
[2016-12-25 20:51] VITALS: TEMP 97.7
--- NOTE | 2016-12-25 21:07 | EDPHY ---
H & P Stated Complaint: URI s/sx, asthma Source: Patient Exam Limitations: No limitations - Personal History LMP (Females 10-55): Now Current Tetanus/Diphtheria Vaccine: Yes Current Tetanus Diphtheria and Acellular Pertussis (TDAP): Yes Tetanus Vaccine Date: 2013 - Medical/Surgical History Hx Asthma: Yes Hx Chronic Respiratory Disease: No Hx Diabetes: No Hx Cardiac Disease: No Hx Renal Disease: No Hx Cirrhosis: No Hx Alcoholism: No Hx HIV/AIDS: No Hx Splenectomy or Spleen Trauma: No Other PMH: esophageal reflux, anxiety, bipolar , ADHD, bladder control issues, migraines. left elbow surgery and 2 left ankle surgery-Dx with regional complex pain syndrome., PNA. "pre-diabetic" vertigo. anya fundip. surg- tubal ligation. septo plasty, turminate reduction - Social History Smoking Status: Never smoked Time Seen by Provider: 12/25/16 21:07 HPI/ROS: HPI: This is a 31 female presents with Chief Complaint: URI s/sx, asthma Location: Chest Quality: Dyspnea Duration: 1-3 hours ago Signs and Symptoms: No fever, no chills, no lower extremity swelling, + wheezing, no cough, + nasal congestion, + runny nose, no PND Timing: Rapid onset, improving Severity: [id number] Context: Patient has a history of exercise-induced asthma and anxiety and presents with complaints of not being able to catch her breath and worsening shortness of breath after sustaining an asthma attack while at the grocery store approximately 1-3 hours ago. She reports she was walking to the grocery store; started to cough and then start wheezing. She tried to calm her breathing down, drove herself home, then took her albuterol inhaler with relief of her wheezing but then reports that the dyspnea difficulty catching her breath has continued over the last hour. Modifying Factors: Albuterol inhaler Comment: ROS: see HPI Constitutional: No fever, no chills, no weight loss Eyes: No blurred vision Respiratory: + shortness of breath,+ cough Cardiovascular: No chest pain Gastrointestinal: No nausea, no vomiting, no diarrhea Genitourinary: No dysuria Extremities: No myalgias Neurologic: No weakness, no numbness Skin: No rashes Hematologic: No bruising, no bleeding MEDICAL/SURGICAL/SOCIAL HISTORY: Medical history: esophageal reflux, anxiety, bipolar , ADHD, bladder control issues, migraines Dx with regional complex pain syndrome., PNA, "pre-diabetic" vertigo Surgical history: left elbow surgery and 2 left ankle surgery Social history: CONSTITUTIONAL: Obese, anxious white female, awake and alert, no obvious distress HEENT: Atraumatic and normocephalic, PERRL, EOMI. Tympanic membranes clear. Oropharynx clear, no exudate and moist pink mucosa. Airway patent. No lymphadenopathy. No meningismus. Cardiovascular: Normal S1/S2, tachycardia, regular rhythm, without murmur rub or gallop. PULMONARY/CHEST: Symmetrical and nontender. Clear to auscultation bilaterally. Good air movement. No accessory muscle usage. ABDOMEN: Soft, nondistended, nontender, no rebound, no guarding, no peritoneal signs, no masses or organomegaly. No CVAT. EXTREMITIES: 2/2 pulses, no deformities, no clubbing, no cyanosis or edema. NEUROLOGICAL: no focal neuro deficits. GCS 15. SKIN: Warm and dry, no erythema. no rash. Good capillary refill. (Abi Hummel) Constitutional: Initial Vital Signs Temperature (C) 36.5 C 12/25/16 20:48 Heart Rate 103 H 12/25/16 20:48 Respiratory Rate 18 12/25/16 20:48 Blood Pressure 144/90 H 12/25/16 20:48 O2 Sat (%) 94 12/25/16 20:48 O2 Delivery Mode Room Air Allergies/Adverse Reactions: hydrocodone bitartrate [From Vicodin] Allergy (Intermediate, Verified 12/25/16 20:51) Vomiting metformin Allergy (Mild, Verified 12/25/16 20:51) Rash adhesive tape Allergy (Verified 12/25/16 20:51) Rash amoxicillin Allergy (Verified 12/25/16 20:51) Rash Milk Containing Products [dairy] Allergy (Verified 12/25/16 20:51) Dyspnea polyethylene glycol [From Golytely] Allergy (Verified 12/25/16 20:51) polyethylene glycol 3350 [From Golytely] Allergy (Verified 12/25/16 20:51) potassium chloride [From Golytely] Allergy (Verified 12/25/16 20:51) sodium [From Golytely] Allergy (Verified 12/25/16 20:51) sodium bicarbonate [From Golytely] Allergy (Verified 12/25/16 20:51) sodium chloride [From Golytely] Allergy (Verified 12/25/16 20:51) sodium sulfate [From Golytely] Allergy (Verified 12/25/16 20:51) sodium sulfate anhydrous [From Golytely] Allergy (Verified 12/25/16 20:51) golight Allergy (Intermediate, Uncoded 07/11/16 19:06) Vomiting other allergy Allergy (Uncoded 07/11/16 19:06) Home Medications: Medication Instructions Recorded ARIPiprazole [Abilify 10 mg (*)] 10 mg PO DAILY 11/16/12 Montelukast Sodium [Singulair 10 10 mg PO HS 11/16/12 mg (*)] OXcarbazepine [Trileptal 300mg (*)] 600 mg PO BID 11/16/12 Pregabalin [Lyrica 75mg (*)] 75 mg PO BID 11/16/12 Methylphenidate HCl [METADATE CD] 10 mg PO DAILY 11/21/13 LORazepam [Ativan (*)] 1 mg PO HS 11/22/13 Levalbuterol 0.63 mg [Xopenex 0.63 mg IH Q6 PRN #1 deyvial 11/23/13 0.63MG Neb (*)] Diclofenac Sodium [Voltaren 75 MG 75 mg PO BID 02/22/16 (*)] Mometasone/Formoterol [Dulera 200 2 puffs IH BID 02/22/16 Mcg/5 Mcg Inhaler] Oxybutynin Chloride [OXYBUTYNIN 5 mg PO DAILY 02/22/16 CHLORIDE ER] oxyCODONE HCL [Roxicodone] 5 mg PO Q6H PRN 02/22/16 Cetirizine [ZyrTEC 10 mg (*)] 10 mg PO DAILY 05/18/16 Herbals/Supplements -Info Only 1 ea PO DAILY 05/18/16 LORazepam [Ativan (*)] 1 mg PO DAILY PRN 05/18/16 Levalbuterol Inhaler [Xopenex Hfa 1 puffs IH Q6H PRN 05/18/16 Inhaler (*)] Ondansetron Odt [Zofran Odt] 4 mg PO Q4PRN PRN #4 tab 06/10/16 Oxycodone HCl [Oxyir] 5 mg PO Q6 PRN #5 capsule 09/12/16 Meclizine HCl [Meclizine HCl 25 mg 25 mg PO TID PRN #15 tab 10/25/16 (RX,OTC)] Azithromycin [Zithromax] 250 mg PO DAILY #6 tab 12/25/16 predniSONE [predniSONE TAPER] 10 mg PO DAILY 6 Days ea 12/25/16 Medical Decision Making - Diagnostics EKG Interpretation: 12 lead EKG: Indication: Dyspnea Rhythm: Normal sinus rhythm, rate of 94 beats per minute [place]: Normal Intervals: Normal QRS: Normal ST segments: Normal T segments: Flat INTERPRETATION: Normal EKG. Compared to EKG taken on 06/10/2016; no significant changes. The 12 lead EKG was interpreted by myself and with attending. (Abi Hummel) Imaging Results: Imaging Impressions Chest X-Ray 12/25/16 22:43 Impression: Bibasilar airspace opacities, likely atelectasis. Otherwise, no acute thoracic abnormality. ED Course/Re-evaluation: Patient is mildly tachycardic with O2 saturating 94-96% upon her arrival. Labs including D-dimer were ordered. Cardiac markers were all negative. Chest x-ray my read via PAC shows no pneumothorax/effusion/opacity Patient is not currently hypoxic/wheezing. patient reports she has albuterol inhaler at home. Due to patient's history of asthma combined with URI; will treat with Zithromax and Steroid taper (Abi Hummel) Differential Diagnosis: Shortness of breath including but not limited to pulmonary infectious process, COPD, asthma, pulmonary embolus and congestive heart failure. (Abi Hummel) Other Provider: The patient was evaluated and managed by the Physician Research And Evaluation Analyst/ Nurse Practitioner. My co-signature indicates that I have reviewed this chart and I agree with the findings and plan of care as documented. I am the secondary supervising physician. (Patricia Maciel) - Data Points Laboratory Results: Laboratory Results 12/25/16 21:40 12/25/16 21:40 12/25/16 12/25/16 12/25/16 21:40 21:40 21:40 WBC 8.42 10^3/uL 10^3/uL (3.80-9.50) RBC 4.61 10^6/uL 10^6/uL (4.18-5.33) Hgb 14.9 g/dL g/dL (12.6-16.3) Hct 42.7 % % (38.0-47.0) MCV 92.6 fL fL (81.5-99.8) MCH 32.3 pg pg (27.9-34.1) MCHC 34.9 g/dL g/dL (32.4-36.7) RDW 12.4 % % (11.5-15.2) Plt Count 238 10^3/uL 10^3/uL (150-400) MPV 9.4 fL fL (8.7-11.7) Neut % (Auto) 73.6 % % (39.3-74.2) Lymph % (Auto) 19.7 % % (15.0-45.0) [place] % (Auto) 5.6 % % (4.5-13.0) Eos % (Auto) 0.4 % L % (0.6-7.6) Baso % (Auto) 0.5 % % (0.3-1.7) Nucleat RBC Rel Count 0.0 % % (0.0-0.2) Absolute Neuts (auto) 6.20 10^3/uL 10^3/uL (1.70-6.50) Absolute Lymphs (auto) 1.66 10^3/uL 10^3/uL (1.00-3.00) Absolute Monos (auto) 0.47 10^3/uL 10^3/uL (0.30-0.80) Absolute Eos (auto) 0.03 10^3/uL 10^3/uL (0.03-0.40) Absolute Basos (auto) 0.04 10^3/uL 10^3/uL (0.02-0.10) Absolute Nucleated RBC 0.00 10^3/uL 10^3/uL (0-0.01) Immature Gran % 0.2 % % (0.0-1.1) Immature Gran # 0.02 10^3/uL 10^3/uL (0.00-0.10) D-Dimer < 0.27 ug/mLFEU ug/mLFEU (0.00-0.50) Sodium 135 mEq/L mEq/L (134-144) Potassium 4.2 mEq/L mEq/L (3.5-5.2) Chloride 98 mEq/L mEq/L (97-110) Carbon Dioxide 25 mEq/l mEq/l (22-31) Anion Gap 12 mEq/L mEq/L (8-16) BUN 15 mg/dL mg/dL (7-23) Creatinine 0.7 mg/dL mg/dL (0.6-1.0) Estimated GFR > 60 Glucose 149 mg/dL H mg/dL (70-100) Calcium 9.4 mg/dL mg/dL (8.5-10.4) Troponin I < 0.012 ng/mL ng/mL (0.000-0.034) NT-Pro-B Natriuret Pep 25 pg/mL pg/mL (0-125) Medications Given: Discontinued Medications Azithromycin (Zithromax) 500 mg PO EDNOW ONE PRN Reason: Protocol Stop: 12/25/16 23:05 Last Admin: 12/25/16 23:12 Dose: 500 mg Sodium Chloride (Ns) 1,000 mls @ 0 mls/hr IV ONCE ONE; Wide Open PRN Reason: Protocol Stop: 12/25/16 21:24 Last Admin: 12/25/16 21:37 Dose: 1,000 mls Prednisone (Prednisone) 60 mg PO EDNOW ONE Stop: 12/25/16 23:05 Last Admin: 12/25/16 23:11 Dose: 60 mg Departure - Departure Disposition: Home, Routine, Self-Care Clinical Impression: Lower respiratory infection Asthma Qualifiers: Asthma severity: mild Asthma persistence: intermittent Asthma complication type : unspecified Qualified Code(s): J45.20 - Mild intermittent asthma, uncomplicated Condition: Good Instructions: Asthma (ED), Acute Bronchitis (ED) Referrals: Kenyatta Coates NP [Primary Care Provider] - As per Instructions Stand Alone Forms: Work Excuse Prescriptions: Azithromycin [Zithromax] 250 mg PO DAILY #6 tab predniSONE [predniSONE TAPER] 10 mg PO DAILY 6 Days ea
[2016-12-25] MEDS ORDERED: NS 1,000 ML IV ONE (21:23)
--- NOTE | 2016-12-25 21:46 | CPEKG ---
Heart Rate: 94 RR Interval: 638 P-R Interval: 140 QRSD Interval: 76 QT Interval: 372 QTC Interval: 466 P [place]: 10 QRS [place]: 14 T Wave [place]: 12 EKG Severity - BORDERLINE ECG - EKG Impression: SINUS RHYTHM EKG Impression: BORDERLINE T ABNORMALITIES, ANTERIOR LEADS Preliminary Awaiting MD Review
[2016-12-25 21:49] LABS: % IMMATURE GRANULYOCYTES 0.2 % (0.0-1.1); ABSOLUTE IMMATURE GRANULOCYTES 0.02 10^3/uL (0.00-0.10); ADD DIFF? NO; ADD MORPH? NO; ADD SCAN? NO; ATYPICAL LYMPHOCYTE FLAG 10 (0-99); FRAGMENT RBC FLAG 0 (0-99); HEMATOCRIT 42.7 % (38.0-47.0); HEMOGLOBIN 14.9 g/dL (12.6-16.3); LEFT SHIFT FLG 0 (0-99); LIPEMIA HEMOLYSIS FLAG 90 (0-99); MEAN CELL HEMOGLOBIN 32.3 pg (27.9-34.1); MEAN CELL HEMOGLOBIN CONCENTR. 34.9 g/dL (32.4-36.7); MEAN CELL VOLUME 92.6 fL (81.5-99.8); MEAN PLATELET VOLUME 9.4 fL (8.7-11.7); PLATELET CLUMPS FLAG 0 (0-99); PLATELET COUNT 238 10^3/uL (150-400); RED BLOOD CELL COUNT 4.61 10^6/uL (4.18-5.33); RED CELL DISTRIBUTION WIDTH 12.4 % (11.5-15.2)
[2016-12-25 22:12] LABS: ANION GAP 12 mEq/L (8-16); CALCIUM 9.4 mg/dL (8.5-10.4); CARBON DIOXIDE 25 mEq/l (22-31); CHLORIDE 98 mEq/L (97-110); CREATININE 0.7 mg/dL (0.6-1.0); GLOMERULAR FILTRATION RATE > 60; GLUCOSE 149 mg/dL (70-100); POTASSIUM 4.2 mEq/L (3.5-5.2); SODIUM 135 mEq/L (134-144)
[2016-12-25 22:23] LABS: TROPONIN I < 0.012 ng/mL (0.000-0.034)
[2016-12-25] MEDS ORDERED: predniSONE 20 MG TAB PO ONE (23:04)
[2016-12-25] MEDS ORDERED: AZITHROMYCIN 250 MG TAB PO ONE (23:04)
[2016-12-25 23:17] VITALS: BP 143/85; PULSE 95; RESP 16; O2SAT 95
== END 2016-12-25 23:16 | disposition home or self-care (01) ==
DX: J22 Unspecified acute lower respiratory infection (principal); J45.20 Mild intermittent asthma, uncomplicated; E86.9 Volume depletion, unspecified

== ENCOUNTER → 2017-01-08 | Outpatient (CLI) | payer OTHER | LOC: FIMAGING 10:54 | PROVIDERS: ATTEND Internal Medicine | DX: N63.20 Unspecified lump in the left breast, unspecified quadrant (principal) ==

== ENCOUNTER 2017-01-31 18:24 | Emergency (ER) | payer OTHER ==
--- NOTE | 2017-01-31 19:20 | EDPHY ---
H & P Stated Complaint: gen abd pain, no bm x 5 days, passing flatulence Time Seen by Provider: 01/31/17 19:17 HPI/ROS: CHIEF COMPLAINT: Constipation HISTORY OF PRESENT ILLNESS: The patient is a 31 y/o female arriving with her complaining of constipation for the last 4-5 days. Her medical history includes a Conner fundoplication and chronic pain with chronic constipation related to continuous narcotic use. She has passed a small amount of stool in that time frame. She has used Miralax every other day and took Dulcolax yesterday without improvement. Today she has vomited every time she eats and has associated lower abdominal pain after eating. She has continuous urgency to have a bowel movement with abdominal cramping. She is still able to pass gas and is belching frequently. REVIEW OF SYSTEMS: A ten point review of systems was performed and is negative with the exception of the items mentioned in the HPI. Past medical history: 1. GERD 2. Anxiety 3. Bipolar disorder 4. ADHD 5. Bladder control issues 6. Migraines 7. Complex regional pain syndrome - Oxycodone 8. Pneumonia 9. Vertigo Past surgical history: 1. Left elbow surgery 2. Two left ankle surgeries 3. Tubal ligation 4. Septoplasty 5. Turbinate reduction 6. Conner fundoplication Past medical records reviewed including ED visit 12/25/16 for URI. Family history: Noncontributory Social history: at bedside General Appearance: Alert. Vital signs reviewed. Blood pressure 150/90. Eyes: Pupils equal and round, no conjunctival injection, no discharge. Anicteric. ENT, Mouth: Mucous membranes are moist, no oropharyngeal erythema or edema. Neck: No lymphadenopathy, supple. Respiratory: Lungs are clear to auscultation; no wheezes, rales, or rhonchi. Cardiovascular: Regular rate and rhythm; no murmur, rub, or gallop. Gastrointestinal: Abdomen is soft and nontender, no masses or organomegaly, bowel sounds normal. Rectal: Stool in rectal vault, brown stool on glove Skin: Warm and dry, no rashes on exposed skin, normal color. Back: Nontender to palpation over the thoracolumbar spine. No CVAT. Extremities: No lower extremity edema, no calf tenderness or swelling. Neurological: Alert and oriented. Moving all four extremities easily and equally. Psychiatric: Normal affect. - Personal History LMP (Females 10-55): Unknown Current Tetanus/Diphtheria Vaccine: Unsure Current Tetanus Diphtheria and Acellular Pertussis (TDAP): Unsure Tetanus Vaccine Date: 2013 - Medical/Surgical History Hx Asthma: Yes Hx Chronic Respiratory Disease: No Hx Diabetes: No Hx Cardiac Disease: No Hx Renal Disease: No Hx Cirrhosis: No Hx Alcoholism: No Hx HIV/AIDS: No Hx Splenectomy or Spleen Trauma: No Other PMH: esophageal reflux, anxiety, bipolar , ADHD, bladder control issues, migraines. left elbow surgery and 2 left ankle surgery-Dx with regional complex pain syndrome., PNA. "pre-diabetic" vertigo. anya fundip. surg- tubal ligation. septo plasty, turminate reduction - Social History Smoking Status: Never smoked Constitutional: Initial Vital Signs Temperature (C) 36.5 C 01/31/17 18:27 Heart Rate 88 01/31/17 18:27 Respiratory Rate 16 01/31/17 18:27 Blood Pressure 158/90 H 01/31/17 18:27 O2 Sat (%) 95 01/31/17 18:27 O2 Delivery Mode Room Air Allergies/Adverse Reactions: hydrocodone bitartrate [From Vicodin] Allergy (Intermediate, Verified 12/25/16 20:51) Vomiting metformin Allergy (Mild, Verified 12/25/16 20:51) Rash adhesive tape Allergy (Verified 12/25/16 20:51) Rash amoxicillin Allergy (Verified 12/25/16 20:51) Rash Milk Containing Products [dairy] Allergy (Verified 12/25/16 20:51) Dyspnea polyethylene glycol [From Golytely] Allergy (Verified 12/25/16 20:51) polyethylene glycol 3350 [From Golytely] Allergy (Verified 12/25/16 20:51) potassium chloride [From Golytely] Allergy (Verified 12/25/16 20:51) sodium [From Golytely] Allergy (Verified 12/25/16 20:51) sodium bicarbonate [From Golytely] Allergy (Verified 12/25/16 20:51) sodium chloride [From Golytely] Allergy (Verified 12/25/16 20:51) sodium sulfate [From Golytely] Allergy (Verified 12/25/16 20:51) sodium sulfate anhydrous [From Golytely] Allergy (Verified 12/25/16 20:51) golight Allergy (Intermediate, Uncoded 07/11/16 19:06) Vomiting other allergy Allergy (Uncoded 07/11/16 19:06) Home Medications: Medication Instructions Recorded ARIPiprazole [Abilify 10 mg (*)] 10 mg PO DAILY 11/16/12 Montelukast Sodium [Singulair 10 10 mg PO HS 11/16/12 mg (*)] OXcarbazepine [Trileptal 300mg (*)] 600 mg PO BID 11/16/12 Pregabalin [Lyrica 75mg (*)] 75 mg PO BID 11/16/12 Methylphenidate HCl [METADATE CD] 10 mg PO DAILY 11/21/13 LORazepam [Ativan (*)] 1 mg PO HS 11/22/13 Levalbuterol 0.63 mg [Xopenex 0.63 mg IH Q6 PRN #1 deyvial 11/23/13 0.63MG Neb (*)] Diclofenac Sodium [Voltaren 75 MG 75 mg PO BID 02/22/16 (*)] Mometasone/Formoterol [Dulera 200 2 puffs IH BID 02/22/16 Mcg/5 Mcg Inhaler] Oxybutynin Chloride [OXYBUTYNIN 5 mg PO DAILY 02/22/16 CHLORIDE ER] oxyCODONE HCL [Roxicodone] 5 mg PO Q6H PRN 02/22/16 Cetirizine [ZyrTEC 10 mg (*)] 10 mg PO DAILY 05/18/16 Herbals/Supplements -Info Only 1 ea PO DAILY 05/18/16 LORazepam [Ativan (*)] 1 mg PO DAILY PRN 05/18/16 Levalbuterol Inhaler [Xopenex Hfa 1 puffs IH Q6H PRN 05/18/16 Inhaler (*)] Ondansetron Odt [Zofran Odt] 4 mg PO Q4PRN PRN #4 tab 06/10/16 Oxycodone HCl [Oxyir] 5 mg PO Q6 PRN #5 capsule 09/12/16 Meclizine HCl [Meclizine HCl 25 mg 25 mg PO TID PRN #15 tab 10/25/16 (RX,OTC)] Azithromycin [Zithromax] 250 mg PO DAILY #6 tab 12/25/16 predniSONE [predniSONE TAPER] 10 mg PO DAILY 6 Days ea 12/25/16 Medical Decision Making ED Course/Re-evaluation: This is a 31 y/o female on continuous opioids for chronic pain who presents with a 5-day history of constipation. She has been able to pass some stool as well as gas. Plan for enema. Patient has had a successful bowel movement following enema. I've recommended standard OTC constipation treatments as needed. She's been referred to her PCP for follow up as needed. Return precautions discussed. She is comfortable with this plan. Differential Diagnosis: I considered a differential diagnosis that includes but is not limited to constipation secondary to opiate use, bowel obstruction, IBS, dehydration, lack of dietary fiber, inactivity. Departure - Departure Disposition: Home, Routine, Self-Care Clinical Impression: Constipation Qualifiers: Constipation type: unspecified constipation type Qualified Code(s): K59.00 - Constipation, unspecified Condition: Good Instructions: Constipation (ED), Fleet Enema (ED) Additional Instructions: 1. Follow up with your primary care provider for recurrent symptoms. 2. Okay to use Miralax or [id number] enema as directed on the packaging as needed for constipation. 3. Return to the ED for worsening of condition. Referrals: Kenyatta Coates NP [Primary Care Provider] - As per Instructions Report Scribed for: Lorena Acevedo Report Scribed by: Kerry Mcdonough Date of Report: 01/31/17 Time of Report: 19:29 Physician Review and Approval Statement: 01/31/17 19:19 Portions of this note were transcribed by the medical sales. I, Dr. Lorena Acevedo, personally performed the history, physical exam, and medical decision- making; and confirmed the accuracy of the information in the transcribed note.
[2017-01-31 20:48] VITALS: BP 142/84; PULSE 81; RESP 18; TEMP 98.4; O2SAT 96
== END 2017-01-31 20:40 | disposition home or self-care (01) ==
DX: K59.00 Constipation, unspecified (principal); J45.909 Unspecified asthma, uncomplicated

== ENCOUNTER → 2017-03-04 | Outpatient (CLI) | payer OTHER | LOC: BMCIMAGING 16:06 | PROVIDERS: ATTEND Podiatrist Foot & Ankle Surgery | DX: M79.672 Pain in left foot (principal) ==

== ENCOUNTER → 2017-06-06 | Outpatient (CLI) | payer OTHER | LOC: BMCIMAGING 12:48 | PROVIDERS: ATTEND Allergy & Immunology Allergy | DX: J45.41 Moderate persistent asthma with (acute) exacerbation (principal) ==

== ENCOUNTER 2017-06-10 19:07 | Emergency (ER) | payer OTHER ==
[2017-06-10 19:16] VITALS: BP 150/117
--- NOTE | 2017-06-10 19:43 | EDPHY ---
General Time Seen by Provider: 06/10/17 19:28 Narrative: CHIEF COMPLAINT: Accidental duplication medication, wasp sting HISTORY OF PRESENT ILLNESS: Patient presents with complaints of accidentally ingesting her Abilify, Zyrtec and methylphenidate in duplicate. She said she was stung by a wasp at 4:00 p.m. In multiple places on the scalp. She became anxious and confused after this. She went to take her ED medications in accidentally took her morning medications. Most of these are prescribed twice daily, which are non concerning. But she is concerned because she accidentally took 10 mg of Abilify , 10 mg of methylphenidate and extra 10 mg Zyrtec. She says that she has felt a little shaky from this but has had no chest pain. She is here mostly for reassurance in fear of too much medication. She has no systemic complaints from the wasp sting. There is only localized itching to the top of the scalp at the site. This is improving with baking soda that she applied herself. No other associated complaints or modifying factors REVIEW OF SYSTEMS: Ten systems reviewed and are negative unless otherwise noted in the HPI PCP: Dr. Coates SPECIALISTS: Dr. Alfred Baires, psychiatry [facility] GI PAST MEDICAL HISTORY: GERD, anxiety, bipolar, attention deficit hyperactivity disorder, migraines, orthopedic injuries, complex regional pain syndrome, pre diabetes, vertigo, PAST SURGICAL HISTORY: Conner fundoplication, tubal ligation, septoplasty, turbinate reduction SOCIAL HISTORY: Never smoker. No drug or alcohol use. Lives and works here locally. Lives independently with her spouse FAMILY HISTORY: Noncontributory EXAMINATION General Appearance: Alert, no distress Head: normocephalic, atraumatic. There are likely vector inoculation reaction sites to the top of the scalp. Eyes: Pupils equal and round, no conjunctival pallor or injection ENT, Mouth: Mucous membranes moist. Uvula midline. Neck: Normal inspection, supple, non-tender. No meningeal signs. Painless range of motion all planes Respiratory: Lungs are clear to auscultation. No wheeze, rhonchi or crackles Cardiovascular: Regular rate and rhythm. No murmur. Gastrointestinal: Abdomen is soft and nontender Back: non-tender, no bony abnormalities Neurological: GCS 15. Cranial nerves 2-12 grossly intact. A&O, nonfocal, normal gait Skin: Warm and dry, no rash. Localized erythema at the site of wasp stings on her scalp. No systemic rash. No signs of anaphylaxis Extremities: Nontender, no pedal edema Psychiatric: Mood and affect normal DIFFERENTIAL DIAGNOSES: Including but not limited to accidental medication ingestion, anxiety reaction, wasp sting MDM: 7:40 p.m. Accidental ingestion of 10 mg of Abilify and 10 mg of methylphenidate XR. Patient feels a little shaky from this but her vital signs are within normal limits. She has no chest pain. Blood pressure is well within normal limits at this time. She is here for reassurance that she is in no danger. She is well- appearing and I do feel she is stable for discharge home with no acute intervention at this time. She also has a prescription of Ativan that she may take if she feels she needs it. She will be taking a lift home. We discussed follow up with her primary care physician and psychiatrist if her symptoms persist. We discussed return to emergency department precautions she is comfortable with this plan and discharged home stable condition. SUPERVISION: This patient was independently evaluated without direct involvement of or examination by the attending physician. - History Smoking Status: Never smoked - Objective Vital Signs: Initial Vital Signs Temperature (C) 97.3 F 06/10/17 19:11 Heart Rate 84 06/10/17 19:11 Respiratory Rate 16 06/10/17 19:11 Blood Pressure 150/117 H 06/10/17 19:11 O2 Sat (%) 94 06/10/17 19:11 O2 Delivery Mode Room Air Allergies/Adverse Reactions: hydrocodone bitartrate [From Vicodin] Allergy (Intermediate, Verified 12/25/16 20:51) Vomiting metformin Allergy (Mild, Verified 12/25/16 20:51) Rash adhesive tape Allergy (Verified 12/25/16 20:51) Rash amoxicillin Allergy (Verified 12/25/16 20:51) Rash Milk Containing Products [dairy] Allergy (Verified 12/25/16 20:51) Dyspnea polyethylene glycol [From Golytely] Allergy (Verified 12/25/16 20:51) polyethylene glycol 3350 [From Golytely] Allergy (Verified 12/25/16 20:51) potassium chloride [From Golytely] Allergy (Verified 12/25/16 20:51) sodium [From Golytely] Allergy (Verified 12/25/16 20:51) sodium bicarbonate [From Golytely] Allergy (Verified 12/25/16 20:51) sodium chloride [From Golytely] Allergy (Verified 12/25/16 20:51) sodium sulfate [From Golytely] Allergy (Verified 12/25/16 20:51) sodium sulfate anhydrous [From Golytely] Allergy (Verified 12/25/16 20:51) golight Allergy (Intermediate, Uncoded 07/11/16 19:06) Vomiting other allergy Allergy (Uncoded 07/11/16 19:06) Home Medications: Medication Instructions Recorded ARIPiprazole [Abilify 10 mg (*)] 10 mg PO DAILY 11/16/12 Montelukast Sodium [Singulair 10 10 mg PO HS 11/16/12 mg (*)] OXcarbazepine [Trileptal 300mg (*)] 600 mg PO BID 11/16/12 Methylphenidate HCl [METADATE CD] 10 mg PO DAILY 11/21/13 LORazepam [Ativan (*)] 1 mg PO HS 11/22/13 Levalbuterol 0.63 mg [Xopenex 0.63 mg IH Q6 PRN #1 deyvial 11/23/13 0.63MG Neb (*)] Diclofenac Sodium [Voltaren 75 MG 75 mg PO BID 02/22/16 (*)] Mometasone/Formoterol [Dulera 200 2 puffs IH BID 02/22/16 Mcg/5 Mcg Inhaler] Cetirizine [ZyrTEC 10 mg (*)] 10 mg PO DAILY 05/18/16 LORazepam [Ativan (*)] 1 mg PO DAILY PRN 05/18/16 Ondansetron Odt [Zofran Odt] 4 mg PO Q4PRN PRN #4 tab 06/10/16 Oxycodone HCl [Oxyir] 5 mg PO Q6 PRN #5 capsule 09/12/16 Meclizine HCl [Meclizine HCl 25 mg 25 mg PO TID PRN #15 tab 10/25/16 (RX,OTC)] Azithromycin [Zithromax] 250 mg PO DAILY #6 tab 12/25/16 Departure - Departure Disposition: Home, Routine, Self-Care Clinical Impression: Anxiety Accidental drug ingestion Qualifiers: Encounter type: initial encounter Qualified Code(s): T50.901A - Poisoning by unspecified drugs, medicaments and biological substances, accidental ( unintentional), initial encounter Insect bite Qualifiers: Encounter type: initial encounter Qualified Code(s): W57.XXXA - Bitten or stung by nonvenomous insect and other nonvenomous arthropods, initial encounter Condition: Good Instructions: Insect Bite or Sting (ED), Anxiety (ED) Additional Instructions: 1. Resume your daily medication tomorrow. Recommend holding your methylphenidate until discussing with psychiatrist or primary care physician 2. You may take your previously prescribed Ativan as needed 3. ED precautions as discussed for the insect bite Referrals: Kenyatta Coates NP [Primary Care Provider] - As per Instructions ALFRED BAIRES [Medical Doctor] - As per Instructions
== END 2017-06-10 19:59 | disposition home or self-care (01) ==
DX: T43.591A Poisoning by other antipsychotics and neuroleptics, accidental (unintentional), initial encounter (principal); T43.631A Poisoning by methylphenidate, accidental (unintentional), initial encounter; T45.0X1A Poisoning by antiallergic and antiemetic drugs, accidental (unintentional), initial encounter; F41.9 Anxiety disorder, unspecified; T63.461A Toxic effect of venom of wasps, accidental (unintentional), initial encounter

== ENCOUNTER → 2017-06-24 | Outpatient (CLI) | payer OTHER | LOC: FIMAGING 06:54 | PROVIDERS: ATTEND Allergy & Immunology Allergy | DX: K80.20 Calculus of gallbladder without cholecystitis without obstruction (principal); K76.0 Fatty (change of) liver, not elsewhere classified; K21.9 Gastro-esophageal reflux disease without esophagitis; K44.9 Diaphragmatic hernia without obstruction or gangrene; Z98.890 Other specified postprocedural states ==

== ENCOUNTER 2017-06-27 20:39 | Emergency (ER) | payer OTHER ==
--- NOTE | 2017-06-27 21:11 | EDPHY ---
H & P Stated Complaint: Galstones, abd/back pain Source: Patient Exam Limitations: No limitations - Personal History LMP (Females 10-55): Irregular Current Tetanus Diphtheria and Acellular Pertussis (TDAP): Yes Tetanus Vaccine Date: 2013 - Medical/Surgical History Hx Asthma: Yes Hx Chronic Respiratory Disease: No Hx Diabetes: No Hx Cardiac Disease: No Hx Renal Disease: No Hx Cirrhosis: No Hx Alcoholism: No Hx HIV/AIDS: No Hx Splenectomy or Spleen Trauma: No Other PMH: esophageal reflux, anxiety, bipolar , ADHD, bladder control issues, migraines. left elbow surgery and 2 left ankle surgery-Dx with regional complex pain syndrome., PNA. "pre-diabetic" vertigo, GI sx. anya fundip. surg-tubal ligation. septo plasty, turminate reduction - Social History Smoking Status: Never smoked Time Seen by Provider: 06/27/17 21:10 HPI/ROS: HPI: This is a 32-year-old female who presents with Chief Complaint: Gallstones, abd/back pain Location: Right upper quadrant Quality: Pain Duration: 1-3 hours prior to arrival Signs and Symptoms: no fever, + nausea, + vomiting, no hematemesis, no blood in stool, no abdominal bloating, + diarrhea, no back pain, no urinary symptoms, no vaginal bleeding/discharge, no indigestion, no chest pain, no shortness of breath Timing: Acute, constant Severity: 10 out 10 Context: Patient reports that she was diagnosed with gallstones last week, scheduled to see Dr. Mckenna on Saturday. Reports that she ate a hot dog in approximately 1 hr later started to experience severe, constant, radiating into her back right upper quadrant pain that has remained constant. Despite taking oxycodone at 1700. Patient reports that she is out of her Zofran at home. Patient has a history of chronic pain syndrome and migraines. Denies any heavy lifting or injury. No history of kidney stones. Reports that she has some urinary frequency but does not feel like a urinary tract infection to her as she has had these in the past. Patient reports that her 10 year wedding anniversary is this weekend and she is traveling to [place]. She was to eat at in a telling restaurant and wonders if her abdominal pain will return. Modifying Factors: Oxycodone no relief Comment: ROS: see HPI Constitutional: No fever, no chills, no weight loss Eyes: No blurred vision Respiratory: No shortness of breath, no cough Cardiovascular: No chest pain, no palpitations Gastrointestinal: + nausea, + vomiting, + diarrhea, no hematemesis, no blood in stool Genitourinary: No dysuria, no blood in urine Extremities: No myalgias, no edema Neurologic: No weakness, no numbness Skin: No rashes, no petechiae Hematologic: No bruising, no bleeding MEDICAL/SURGICAL/SOCIAL HISTORY: Medical history: esophageal reflux, anxiety, bipolar , ADHD, bladder control issues, migraines, regional complex pain syndrome, PNA "pre-diabetic" vertigo, GI sx. Surgical history: Left eft elbow surgery and 2 left ankle surgery, Anya fundoplication, tubal ligation, septoplasty, terminate reduction Social history: . CONSTITUTIONAL: Extremely well-appearing, adult white female, awake and alert, no obvious distress HEENT: Atraumatic and normocephalic, PERRL, EOMI. Tympanic membranes clear. Oropharynx clear, no exudate and moist pink mucosa. Airway patent. No lymphadenopathy. No meningismus. Cardiovascular: Normal S1/S2, regular rate, regular rhythm, without murmur rub or gallop. PULMONARY/CHEST: Symmetrical and nontender. Clear to auscultation bilaterally. Good air movement. No accessory muscle usage. ABDOMEN: Soft, obesely round, severe right upper quadrant tenderness; positive Villeda sign; moderate epigastric tenderness; no rebound, no guarding, no peritoneal signs, no masses or organomegaly. No CVAT. EXTREMITIES: 2/2 pulses, strength 5/5, no deformities, no clubbing, no cyanosis or edema. NEUROLOGICAL: no focal neuro deficits. GCS 15. SKIN: Warm and dry, no erythema. no rash. Good capillary refill. (Abi Hummel) Constitutional: Initial Vital Signs Temperature (C) 36.8 C 06/27/17 20:40 Heart Rate 77 06/27/17 20:40 Respiratory Rate 20 06/27/17 20:40 Blood Pressure 149/107 H 06/27/17 20:40 O2 Sat (%) 94 06/27/17 20:40 O2 Delivery Mode Room Air Allergies/Adverse Reactions: hydrocodone bitartrate [From Vicodin] Allergy (Intermediate, Verified 06/27/17 21:26) Vomiting metformin Allergy (Mild, Verified 06/27/17 21:26) Rash adhesive tape Allergy (Verified 06/27/17 21:26) Rash amoxicillin Allergy (Verified 06/27/17 21:26) Rash Milk Containing Products [dairy] Allergy (Verified 06/27/17 20:40) Dyspnea polyethylene glycol [From Golytely] Allergy (Verified 06/27/17 21:26) polyethylene glycol 3350 [From Golytely] Allergy (Verified 06/27/17 21:26) potassium chloride [From Golytely] Allergy (Verified 06/27/17 21:26) sodium [From Golytely] Allergy (Verified 06/27/17 21:26) sodium bicarbonate [From Golytely] Allergy (Verified 06/27/17 21:26) sodium chloride [From Golytely] Allergy (Verified 06/27/17 20:40) sodium sulfate [From Golytely] Allergy (Verified 06/27/17 20:40) sodium sulfate anhydrous [From Golytely] Allergy (Verified 06/27/17 20:40) golight Allergy (Intermediate, Uncoded 07/11/16 19:06) Vomiting other allergy Allergy (Uncoded 07/11/16 19:06) Home Medications: Medication Instructions Recorded ARIPiprazole [Abilify 10 mg (*)] 10 mg PO DAILY 11/16/12 Montelukast Sodium [Singulair 10 10 mg PO HS 11/16/12 mg (*)] OXcarbazepine [Trileptal 300mg (*)] 600 mg PO BID 11/16/12 Methylphenidate HCl [METADATE CD] 10 mg PO DAILY 11/21/13 LORazepam [Ativan (*)] 1 mg PO HS 11/22/13 Levalbuterol 0.63 mg [Xopenex 0.63 mg IH Q6 PRN #1 deyvial 11/23/13 0.63MG Neb (*)] Diclofenac Sodium [Voltaren 75 MG 75 mg PO BID 02/22/16 (*)] Mometasone/Formoterol [Dulera 200 2 puffs IH BID 02/22/16 Mcg/5 Mcg Inhaler] Cetirizine [ZyrTEC 10 mg (*)] 10 mg PO DAILY 05/18/16 LORazepam [Ativan (*)] 1 mg PO DAILY PRN 05/18/16 Ondansetron Odt [Zofran Odt] 4 mg PO Q4PRN PRN #4 tab 06/10/16 Oxycodone HCl [Oxyir] 5 mg PO Q6 PRN #5 capsule 09/12/16 Meclizine HCl [Meclizine HCl 25 mg 25 mg PO TID PRN #15 tab 10/25/16 (RX,OTC)] Azithromycin [Zithromax] 250 mg PO DAILY #6 tab 12/25/16 Ondansetron Odt [Zofran Odt 4 mg 4 mg PO Q4 PRN #12 tab 06/27/17 (*)] Medical Decision Making - Diagnostics Imaging Results: Imaging Impressions Abdomen CT 06/27/17 21:13 Impression: 1. No acute localizing feature. There is residual contrast from the recent esophagram. 2. No evidence of acute cholecystitis. 3. See above report for additional findings. Results called and discussed with Abi Hummel PA-C, on June 27, 2017 at 2247. ED Course/Re-evaluation: Urinalysis, labs, IV fluids, IV medications, CT abdomen and pelvis scan ordered due to history of Conner fundoplication No signs reviewed upon arrival in stable. Given 1 L normal saline, IV Dilaudid, IV promethazine upon arrival Will evaluate for biliary colic and cholelithiasis versus cholecystitis. 2245: Called by radiologist who advised that CT abdomen and pelvis scan shows no signs of cholecystitis; stable hiatal hernia without obstruction, gangrene when compared to prior CT exam. Labs reviewed and show low sodium of 129. Sodium level in 322 was 132. Advised repeat value in 3-5 days. Urinalysis shows no signs of infection. 2300: Reassessed patient who reports that pain is completely resolved. She reports that she is on a pain contract and denies needing any more medications at home as she still has her oxycodone. Patient is requesting a refill on her Zofran. She has a follow-up appointment Dr. Mckenna on Saturday. Discussed extensively with her low-fat diet. This patient was seen under the supervision of my secondary supervising physician. I evaluated care for this patient independently. Discussed this patient with Dr. Maciel who did not see the patient. (Abi Hummel) Differential Diagnosis: Abdominal pain including but not limited to appendicitis, cholecystitis, gastritis and urinary tract infection. (Abi Hummel) Other Provider: The patient was evaluated and managed by the Physician [facility]anteen Manager. I discussed the patient's presentation and course with the midlevel provider with them and agree with the evaluation. My co-signature indicates that I have reviewed this chart and I agree with the findings and plan of care as documented. I am the secondary supervising physician. (Patricia Maciel) - Data Points Laboratory Results: Laboratory Results 06/27/17 21:20 06/27/17 21:20 06/27/17 06/27/17 06/27/17 22:46 21:58 21:20 WBC RBC Hgb Hct MCV MCH MCHC RDW Plt Count MPV Neut % (Auto) Lymph % (Auto) [place] % (Auto) Eos % (Auto) Baso % (Auto) Nucleat RBC Rel Count Absolute Neuts (auto) Absolute Lymphs (auto) Absolute Monos (auto) Absolute Eos (auto) Absolute Basos (auto) Absolute Nucleated RBC Immature Gran % Immature Gran # VBG Lactic Acid 1.2 mmol/L mmol/L (0.7-2.1) Sodium Potassium Chloride Carbon Dioxide Anion Gap BUN Creatinine Estimated GFR Glucose Calcium Total Bilirubin Conjugated Bilirubin Unconjugated Bilirubin AST ALT Alkaline Phosphatase Total Protein Albumin Beta HCG, Qual NEGATIVE Urine Color PALE YELLOW Urine Appearance CLEAR Urine pH 7.0 (5.0-7.5) Ur Specific [place] 1.021 (1.002-1.030) Urine Protein NEGATIVE (NEGATIVE) Urine Ketones NEGATIVE (NEGATIVE) Urine Blood NEGATIVE (NEGATIVE) Urine Nitrate NEGATIVE (NEGATIVE) Urine Bilirubin NEGATIVE (NEGATIVE) Urine Urobilinogen NEGATIVE EU EU (0.2-1.0) Ur Leukocyte Esterase NEGATIVE (NEGATIVE) Urine Glucose NEGATIVE (NEGATIVE) 06/27/17 06/27/17 21:20 21:20 WBC 9.64 10^3/uL H 10^3/uL (3.80-9.50) RBC 4.58 10^6/uL 10^6/uL (4.18-5.33) Hgb 14.7 g/dL g/dL (12.6-16.3) Hct 41.3 % % (38.0-47.0) MCV 90.2 fL fL (81.5-99.8) MCH 32.1 pg pg (27.9-34.1) MCHC 35.6 g/dL g/dL (32.4-36.7) RDW 12.2 % % (11.5-15.2) Plt Count 242 10^3/uL 10^3/uL (150-400) MPV 8.9 fL fL (8.7-11.7) Neut % (Auto) 69.3 % % (39.3-74.2) Lymph % (Auto) 24.0 % % (15.0-45.0) [place] % (Auto) 5.7 % % (4.5-13.0) Eos % (Auto) 0.4 % L % (0.6-7.6) Baso % (Auto) 0.3 % % (0.3-1.7) Nucleat RBC Rel Count 0.0 % % (0.0-0.2) Absolute Neuts (auto) 6.68 10^3/uL H 10^3/uL (1.70-6.50) Absolute Lymphs (auto) 2.31 10^3/uL 10^3/uL (1.00-3.00) Absolute Monos (auto) 0.55 10^3/uL 10^3/uL (0.30-0.80) Absolute Eos (auto) 0.04 10^3/uL 10^3/uL (0.03-0.40) Absolute Basos (auto) 0.03 10^3/uL 10^3/uL (0.02-0.10) Absolute Nucleated RBC 0.00 10^3/uL 10^3/uL (0-0.01) Immature Gran % 0.3 % % (0.0-1.1) Immature Gran # 0.03 10^3/uL 10^3/uL (0.00-0.10) VBG Lactic Acid Sodium 129 mEq/L L mEq/L (135-145) Potassium 4.5 mEq/L mEq/L (3.5-5.2) Chloride 90 mEq/L L mEq/L (97-110) Carbon Dioxide 28 mEq/l mEq/l (22-31) Anion Gap 11 mEq/L mEq/L (8-16) BUN 14 mg/dL mg/dL (7-23) Creatinine 0.7 mg/dL mg/dL (0.6-1.0) Estimated GFR > 60 Glucose 100 mg/dL mg/dL (70-100) Calcium 9.4 mg/dL mg/dL (8.5-10.4) Total Bilirubin 0.4 mg/dL mg/dL (0.1-1.4) Conjugated Bilirubin 0.4 mg/dL mg/dL (0.0-0.5) Unconjugated Bilirubin 0.0 mg/dL mg/dL (0.0-1.1) AST 41 IU/L IU/L (14-46) ALT 86 IU/L H IU/L (9-52) Alkaline Phosphatase 69 IU/L IU/L (38-126) Total Protein 6.8 g/dL g/dL (6.3-8.2) Albumin 3.9 g/dL g/dL (3.5-5.0) Beta HCG, Qual Urine Color Urine Appearance Urine pH Ur Specific [place] Urine Protein Urine Ketones Urine Blood Urine Nitrate Urine Bilirubin Urine Urobilinogen Ur Leukocyte Esterase Urine Glucose Medications Given: Discontinued Medications Hydromorphone HCl (Dilaudid) 1 mg IVP EDNOW ONE Stop: 06/27/17 21:13 Last Admin: 06/27/17 21:35 Dose: 1 mg Sodium Chloride (Ns) 1,000 mls @ 0 mls/hr IV EDNOW ONE; Wide Open PRN Reason: Protocol Stop: 06/27/17 21:13 Last Admin: 06/27/17 21:27 Dose: 1,000 mls Ondansetron HCl (Zofran Odt 4 Mg Prepack#2) 1 btl TAKEHOME EDNOW ONE Stop: 06/27/17 22:59 Last Admin: 06/27/17 23:14 Dose: 1 btl Promethazine HCl (Phenergan) 12.5 mg IVP EDNOW ONE Stop: 06/27/17 21:13 Last Admin: 06/27/17 21:34 Dose: 12.5 mg Departure - Departure Disposition: Home, Routine, Self-Care Clinical Impression: Hiatal hernia without gangrene and obstruction, Chronic pain syndrome, Cholelithiasis without cholecystitis, Hyponatremia Condition: Good Instructions: Ondansetron (By mouth), Low Fat Diet (ED) Additional Instructions: Consume a minimum of 8-10 glasses of water or electrolyte fluid replacement drinks that include Gatorade, Powerade, Pedialyte. Eat a bland diet for the next 48 hours and then slowly advance as tolerated. Eat small frequent meals. Follow a low-fat diet. Take Zofran 1 tab every 4 hours as needed for nausea, vomiting. Sodium level needs to be follow-up and labs drawn to repeat level in the next 3- 5 days. Keep follow-up appoint with Dr. Mckenna on Saturday. Return to the Emergency Room if symptoms do not resolve in the next 48-72 hours , you spike a fever > 102 F, or experience intractable abdominal pain/nausea/ vomiting. Referrals: Kenyatta Coates NP [Primary Care Provider] - As per Instructions Lawrence Mckenna MD [Medical Doctor] - 07/02/17 Prescriptions: Ondansetron Odt [Zofran Odt 4 mg (*)] 4 mg PO Q4 PRN #12 tab PRN Reason: Nausea/Vomiting, Use 1st
[2017-06-27] MEDS ORDERED: NS 1,000 ML IV ONE (21:12)
[2017-06-27] MEDS ORDERED: HYDROmorphONE/DILAUDID 2 MG/ML INJ IVP ONE (21:12)
[2017-06-27] MEDS ORDERED: PROMETHAZINE HCL 25 MG/ML INJ IVP ONE (21:12)
[2017-06-27] MEDS ORDERED: IOPAMIDOL (ISOVUE-300) 100 ML BTL ONE (21:17)
[2017-06-27 21:45] LABS: PLATELET COUNT 242 10^3/uL (150-400)
[2017-06-27] MEDS ORDERED: ONDANSETRON 4MG PREPACK#2 BTL TAKEHOME ONE (22:58)
[2017-06-27 23:17] VITALS: BP 130/88
== END 2017-06-27 23:17 | disposition home or self-care (01) ==
DX: K44.9 Diaphragmatic hernia without obstruction or gangrene (principal); K80.20 Calculus of gallbladder without cholecystitis without obstruction; E87.1 Hypo-osmolality and hyponatremia; E86.9 Volume depletion, unspecified; J45.909 Unspecified asthma, uncomplicated; G89.4 Chronic pain syndrome; Z98.51 Tubal ligation status
CPT/HCPCS: 74177; 96374; 96375; 99285; J1170; J2550; Q9967

== ENCOUNTER 2017-07-03 14:12 | Emergency (ER) | payer OTHER ==
[2017-07-03] MEDS ORDERED: ONDANSETRON 4 MG/2 ML VIAL IVP ONE (15:19)
[2017-07-03] MEDS ORDERED: HYDROmorphONE/DILAUDID 2 MG/ML INJ IVP ONE (15:19)
[2017-07-03] MEDS ORDERED: NS 1,000 ML IV ONE (15:19)
--- NOTE | 2017-07-03 15:19 | EDPHY ---
H & P Time Seen by Provider: 07/03/17 15:02 HPI/ROS: Chief complaint. Abdominal pain HPI. Patient is 32-year-old female chronic abdominal pain and a pain management contract with apparent gallbladder problems. She was seen June 27 in our emergency department for same symptoms. She saw Dr. Mckenna yesterday who wanted her to be evaluated by Gastroenterology prior to any surgery. The patient tells me her right upper quadrant pain began at about 1 o' clock today. She had eaten at 11:30 p.m.. She has had nausea and vomiting. No fever. Pain is in the usual spot but just worse. She does have radiation to the right shoulder blade. No chest discomfort or trouble breathing. Patient 's usual oxycodone tablets have not given her adequate relief. ROS Constitutional. no fever/chills, no weakness Eyes. no problems with vision ENT. no sore throat, no nasal drainage Cardiovascular. no chest pain Respiratory. no shortness of breath, no cough Abdominal. Right upper quadrant abdominal pain with nausea and vomiting . no problems urinating MS. no calf pain/swelling, no neck/back pain, no joint pain Skin. no rash Lymph. no swollen glands Neuro. no headache, no dizziness, no difficulty walking or with speech Past Medical/Surgical History: Past medical history esophageal reflux, anxiety, bipolar illness, attention deficit hyperactivity disorder, migraines, regional complex pain syndrome, pre diabetes, vertigo, Arnol fundoplication surgery Social History: Single, nonsmoker, no alcohol Smoking Status: Never smoked Physical Exam: General Appearance: Alert well-developed female crying moderate distress vital signs are stable Eyes: Pupils equal and round no pallor or injection. ENT, Mouth: Mucous membranes are moist. Respiratory: There are no retractions, lungs are clear to auscultation. Cardiovascular: Regular rate and rhythm. Gastrointestinal: Abdomen is soft with tenderness right upper quadrant. No masses. No organomegaly Neurological: Awake and alert, sensory and motor exams grossly normal. Skin: Warm and dry, no rashes. Musculoskeletal: Neck is supple nontender. Extremities symmetrical, full range of motion. Psychiatric: Patient is oriented X 3, there is no agitation. Constitutional: Initial Vital Signs Temperature (C) 36.3 C 07/03/17 14:17 Heart Rate 90 07/03/17 14:17 Respiratory Rate 16 07/03/17 14:17 Blood Pressure 143/85 H 07/03/17 14:17 O2 Sat (%) 94 07/03/17 14:17 O2 Delivery Mode Nasal Cannula O2 (L/minute) 2 Allergies/Adverse Reactions: hydrocodone bitartrate [From Vicodin] Allergy (Intermediate, Verified 07/03/17 14:16) Vomiting metformin Allergy (Mild, Verified 07/03/17 14:16) Rash adhesive tape Allergy (Verified 07/03/17 14:16) Rash amoxicillin Allergy (Verified 07/03/17 14:16) Rash Milk Containing Products [dairy] Allergy (Verified 07/03/17 14:16) Dyspnea polyethylene glycol [From Golytely] Allergy (Verified 07/03/17 14:16) polyethylene glycol 3350 [From Golytely] Allergy (Verified 07/03/17 14:16) potassium chloride [From Golytely] Allergy (Verified 07/03/17 14:16) sodium [From Golytely] Allergy (Verified 07/03/17 14:16) sodium bicarbonate [From Golytely] Allergy (Verified 07/03/17 14:16) sodium chloride [From Golytely] Allergy (Verified 07/03/17 14:16) sodium sulfate [From Golytely] Allergy (Verified 07/03/17 14:16) sodium sulfate anhydrous [From Golytely] Allergy (Verified 07/03/17 14:16) golight Allergy (Intermediate, Uncoded 07/03/17 14:16) Vomiting other allergy Allergy (Uncoded 07/03/17 14:16) Home Medications: Medication Instructions Recorded ARIPiprazole [Abilify 10 mg (*)] 10 mg PO DAILY 11/16/12 Montelukast Sodium [Singulair 10 10 mg PO HS 11/16/12 mg (*)] OXcarbazepine [Trileptal 300mg (*)] 600 mg PO BID 11/16/12 Methylphenidate HCl [METADATE CD] 10 mg PO DAILY 11/21/13 LORazepam [Ativan (*)] 1 mg PO HS 11/22/13 Levalbuterol 0.63 mg [Xopenex 0.63 mg IH Q6 PRN #1 deyvial 11/23/13 0.63MG Neb (*)] Diclofenac Sodium [Voltaren 75 MG 75 mg PO BID 02/22/16 (*)] Mometasone/Formoterol [Dulera 200 2 puffs IH BID 02/22/16 Mcg/5 Mcg Inhaler] Cetirizine [ZyrTEC 10 mg (*)] 10 mg PO DAILY 05/18/16 LORazepam [Ativan (*)] 1 mg PO DAILY PRN 05/18/16 Ondansetron Odt [Zofran Odt] 4 mg PO Q4PRN PRN #4 tab 06/10/16 Oxycodone HCl [Oxyir] 5 mg PO Q6 PRN #5 capsule 09/12/16 Meclizine HCl [Meclizine HCl 25 mg 25 mg PO TID PRN #15 tab 10/25/16 (RX,OTC)] Azithromycin [Zithromax] 250 mg PO DAILY #6 tab 12/25/16 Ondansetron Odt [Zofran Odt 4 mg 4 mg PO Q4 PRN #12 tab 06/27/17 (*)] Medical Decision Making - Diagnostics Imaging Results: Imaging Impressions Abdomen Ultrasound 07/03/17 15:19 Impression: 1. New nondependent echogenic foci in the gallbladder, which could be related to artifact, air or emphysematous cholecystitis, although the gallbladder wall is not thickened. Previously noted cholelithiasis is less apparent on this study. 2. Severely limited study. Findings discussed with Benji Jorge M.D., on July 03, 2017 at 1640. E:NW/amm Abdomen CT 07/03/17 16:43 Impression: 1. Normal CT appearance of the gallbladder, with no pericholecystic fluid, edema , or wall thickening. There is no bile duct dilatation. 2. Mild hepatomegaly, with generalized steatosis. 3. Status post Conner fundoplication, with intraluminal air within the thoracic esophagus, and some mild thickening of the distal thoracic esophagus just above the wrap. Findings were discussed with BENJI JORGE MD at 18:31, on 07/03/2017. Ultrasound of the gallbladder reviewed by me and discussed Dr. Simpson shows some change possibly from imaging study 9 days ago. Possible air in the gallbladder. CT is recommended. CT abdomen pelvis with IV contrast reviewed by me and discussed with Dr. Mota shows moderately distended gallbladder but no evidence of acute cholecystitis. Procedures: IV normal saline. Dilaudid and Zofran for pain and nausea ED Course/Re-evaluation: Re-evaluation at 4:45 p.m.--patient improved in minimal pain. She and I discussed treatment plan including recommendation for CT today. She expresses understanding and agreement Re-evaluation at 6:35 p.m.. The patient and I discussed imaging study results, treatment plan including criteria for return and importance of follow-up and further evaluation. She expresses understanding and agreement Patient complains of cysts little bit of heartburn and is given a GI cocktail. Differential Diagnosis: I considered acute cholecystitis, pancreatitis, small-bowel obstruction. - Data Points Laboratory Results: Laboratory Results 07/03/17 15:19 07/03/17 15:19 07/03/17 07/03/17 07/03/17 16:54 15:19 15:19 WBC 9.91 10^3/uL H 10^3/uL (3.80-9.50) RBC 4.74 10^6/uL 10^6/uL (4.18-5.33) Hgb 15.1 g/dL g/dL (12.6-16.3) Hct 43.1 % % (38.0-47.0) MCV 90.9 fL fL (81.5-99.8) MCH 31.9 pg pg (27.9-34.1) MCHC 35.0 g/dL g/dL (32.4-36.7) RDW 12.1 % % (11.5-15.2) Plt Count 233 10^3/uL 10^3/uL (150-400) MPV 9.0 fL fL (8.7-11.7) Neut % (Auto) 75.8 % H % (39.3-74.2) Lymph % (Auto) 18.1 % % (15.0-45.0) Towns % (Auto) 5.2 % % (4.5-13.0) Eos % (Auto) 0.2 % L % (0.6-7.6) Baso % (Auto) 0.3 % % (0.3-1.7) Nucleat RBC Rel Count 0.0 % % (0.0-0.2) Absolute Neuts (auto) 7.51 10^3/uL H 10^3/uL (1.70-6.50) Absolute Lymphs (auto) 1.79 10^3/uL 10^3/uL (1.00-3.00) Absolute Monos (auto) 0.52 10^3/uL 10^3/uL (0.30-0.80) Absolute Eos (auto) 0.02 10^3/uL L 10^3/uL (0.03-0.40) Absolute Basos (auto) 0.03 10^3/uL 10^3/uL (0.02-0.10) Absolute Nucleated RBC 0.00 10^3/uL 10^3/uL (0-0.01) Immature Gran % 0.4 % % (0.0-1.1) Immature Gran # 0.04 10^3/uL 10^3/uL (0.00-0.10) Sodium 134 mEq/L L mEq/L (135-145) Potassium 4.4 mEq/L mEq/L (3.5-5.2) Chloride 93 mEq/L L mEq/L (97-110) Carbon Dioxide 29 mEq/l mEq/l (22-31) Anion Gap 12 mEq/L mEq/L (8-16) BUN 12 mg/dL mg/dL (7-23) Creatinine 0.7 mg/dL mg/dL (0.6-1.0) Estimated GFR > 60 Glucose 104 mg/dL H mg/dL (70-100) Calcium 9.1 mg/dL mg/dL (8.5-10.4) Total Bilirubin 0.4 mg/dL mg/dL (0.1-1.4) Conjugated Bilirubin 0.4 mg/dL mg/dL (0.0-0.5) Unconjugated Bilirubin 0.0 mg/dL mg/dL (0.0-1.1) AST 42 IU/L IU/L (14-46) ALT 85 IU/L H IU/L (9-52) Alkaline Phosphatase 67 IU/L IU/L (38-126) Total Protein 7.0 g/dL g/dL (6.3-8.2) Albumin 4.1 g/dL g/dL (3.5-5.0) Lipase 58 IU/L IU/L (23-300) Beta HCG, Qual NEGATIVE Medications Given: Discontinued Medications Hydromorphone HCl (Dilaudid) 1 mg IVP EDNOW ONE Stop: 07/03/17 15:20 Last Admin: 07/03/17 15:40 Dose: 1 mg Sodium Chloride (Ns) 1,000 mls @ 0 mls/hr IV EDNOW ONE; Wide Open PRN Reason: Protocol Stop: 07/03/17 15:20 Last Admin: 07/03/17 15:39 Dose: 1,000 mls Ondansetron HCl (Zofran) 4 mg IVP EDNOW ONE Stop: 07/03/17 15:20 Last Admin: 07/03/17 15:40 Dose: 4 mg Departure - Departure Disposition: Home, Routine, Self-Care Clinical Impression: Abdominal pain Qualifiers: Abdominal location: right upper quadrant Qualified Code(s): R10.11 - Right upper quadrant pain Condition: Good Instructions: Acute Abdominal Pain (ED) Additional Instructions: Continue regular medications as prescribed. Return for worsening symptoms including fever, vomiting, worsening pain. Continue to work with Gastroenterology and Dr. Mckenna for evaluation of your gallbladder Referrals: Kenyatta Coates NP [Primary Care Provider] - As per Instructions Lawrence Mckenna MD [Medical Doctor] - As per Instructions
[2017-07-03 15:30] LABS: PLATELET COUNT 233 10^3/uL (150-400)
[2017-07-03] MEDS ORDERED: IOPAMIDOL (ISOVUE-300) 100 ML BTL ONE (17:48)
[2017-07-03 18:32] VITALS: BP 123/61
[2017-07-03] MEDS ORDERED: MAG HYDROX/AL HYDROX/SIMETH 30 ML UDCUP ONE (18:38)
[2017-07-03] MEDS ORDERED: LIDOCAINE 2% VISCOUS 15 ML UDCUP ONE (18:38)
[2017-07-03] MEDS ORDERED: MAGNESIUM HYDROXIDE 30 ML UDCUP PO PRN (18:39)
[2017-07-03] MEDS ORDERED: LIDOCAINE 2% VISCOUS 15 ML UDCUP PO ONE (18:39)
[2017-07-03] MEDS ORDERED: MAG HYDROX/AL HYDROX/SIMETH 30 ML UDCUP PO ONE (18:43)
== END 2017-07-03 18:54 | disposition home or self-care (01) ==
DX: R10.11 Right upper quadrant pain (principal); E86.9 Volume depletion, unspecified
CPT/HCPCS: 74177; 76705; 96374; 96375; 99285; J1170; J2405; Q9967

== ENCOUNTER 2017-07-09 09:16 | Observation (INO) | payer OTHER ==
[2017-07-09] MEDS ORDERED: LIDOCAINE 1% 2 ML INJ ID PRN (09:35)
[2017-07-09] MEDS ORDERED: LR 1,000 ML IV ONE (09:35)
[2017-07-09] MEDS ORDERED: fentaNYL 100 MCG/2 ML INJ IVP ONE (10:15)
--- NOTE | 2017-07-09 10:18 | PDHPUP ---
History & Physical Update H&P update statement: This history and physical update is based on an assessment of the patient which was completed after admission or registration (within 24 hours), but prior to the surgery/procedure. H&P update: H&P reviewed & patient examined, no change in patient's condition since H&P completed
[2017-07-09] MEDS ORDERED: cefOXitin SODIUM 2 GM in STERILE WATER INJ 21 ML IV ONE (10:19)
[2017-07-09] MEDS ORDERED: BUPIVACAINE 0.5% 30 ML SDV ONE (10:33)
--- NOTE | 2017-07-09 11:48 | PDANEPAE ---
ANE History of Present Illness CHOLELITHIASIS ANE Past Medical History - Cardiovascular History Hx Hypertension: No Hx Arrhythmias: No Hx Chest Pain: No Hx Coronary Artery / Peripheral Vascular Disease: No Hx CHF / Valvular Disease: No Hx Palpitations: No Cardiovascular History Comment: bp has been running high off and on since surgery in 130/ - Pulmonary History Hx COPD: No Hx Asthma/Reactive Airway Disease: Yes Hx Recent Upper Respiratory Infection: No Hx Oxygen in Use at Home: No Hx Sleep Apnea: Yes Sleep Apnea Screening Result - Last Documented: Positive Pulmonary History Comment: ASTHMA, PNEUMONIA 2014,. +KIKI, CPAP- in process of obtaining new CPAP. - Neurologic History Hx Cerebrovascular Accident: No Hx Seizures: No Hx Dementia: No Neurologic History Comment: COMPLEX REGIONAL PAIN SYNDROME, migraines. Bipolar , ADHD, anxiety - Endocrine History Hx Diabetes: No Endocrine History Comment: PRE DIABETIC, NO MEDS - Renal History Hx Renal Disorders: No - Liver History Hx Hepatic Disorders: No - Neurological & Psychiatric Hx Hx Neurological and Psychiatric Disorders: Yes Neurological / Psychiatric History Comment: ANXIETY. ADD. BIPOLAR. DEPRESSION - Cancer History Hx Cancer: No - Congenital Disorder History Hx Congenital Disorders: No - GI History Hx Gastrointestinal Disorders: Yes Gastrointestinal History Comment: Cholelithiasis. TRACHEOMALACIA BEING NEWLY DIAGNOSED - Other Health History Other Health History: wears glasses - Chronic Pain History Chronic Pain: Yes (LEFT ANKLE) - Surgical History Prior Surgeries: Conner fundoplication '16. 02/22/16 septoplasty, lara inferior turbinate reduction with Julian. L ELBOW, RUPTURE TENDON LEFT ANKLE X2. tubal ligation 2004 ANE Review of Systems Review of Systems: - Exercise capacity METS (RN): 4 METS ANE Patient History - Allergies Allergies/Adverse Reactions: hydrocodone bitartrate [From Vicodin] Allergy (Intermediate, Verified 07/03/17 14:16) Vomiting metformin Allergy (Mild, Verified 07/03/17 14:16) Rash adhesive tape Allergy (Verified 07/03/17 14:16) Rash amoxicillin Allergy (Verified 07/03/17 14:16) Rash Milk Containing Products [dairy] Allergy (Verified 07/03/17 14:16) Dyspnea polyethylene glycol [From Golytely] Allergy (Verified 07/03/17 14:16) polyethylene glycol 3350 [From Golytely] Allergy (Verified 07/03/17 14:16) potassium chloride [From Golytely] Allergy (Verified 07/03/17 14:16) sodium [From Golytely] Allergy (Verified 07/03/17 14:16) sodium bicarbonate [From Golytely] Allergy (Verified 07/03/17 14:16) sodium chloride [From Golytely] Allergy (Verified 07/03/17 14:16) sodium sulfate [From Golytely] Allergy (Verified 07/03/17 14:16) sodium sulfate anhydrous [From Golytely] Allergy (Verified 07/03/17 14:16) golight Allergy (Intermediate, Uncoded 07/03/17 14:16) Vomiting other allergy Allergy (Uncoded 07/03/17 14:16) - Home Medications Home Medications: RX: ARIPiprazole [Abilify 10 mg (*)] 10 mg PO DAILY 11/16/12 [Last Taken ] RX: Montelukast Sodium [Singulair 10 mg (*)] 10 mg PO HS 11/16/12 [Last Taken 1 Day Ago ~07/08/17] RX: OXcarbazepine [Trileptal 300mg (*)] 600 mg PO BID 11/16/12 [Last Taken 07/09] RX: Methylphenidate HCl [METADATE CD] 10 mg PO DAILY 11/21/13 [Last Taken 1 Day Ago ~07/08/17] RX: LORazepam [Ativan (*)] 1 mg PO HS 11/22/13 [Last Taken 1 Day Ago ~07/08/17] RX: Diclofenac Sodium [Voltaren 75 MG (*)] 75 mg PO BID 02/22/16 [Last Taken 20:00] RX: Cetirizine [ZyrTEC 10 mg (*)] 10 mg PO DAILY 05/18/16 [Last Taken 1 Day Ago ~07/08/17] RX: LORazepam [Ativan (*)] 1 mg PO DAILY PRN 05/18/16 [Last Taken 04/25/16] Gabapentin 07/08/17 [Last Taken 1 Day Ago ~07/08/17] Tylenol Extra Strength 07/08/17 [Last Taken 1 Day Ago ~07/08/17] Zomig 07/08/17 [Last Taken 1 Day Ago ~07/08/17] - NPO status NPO Since - Liquids (Date): 07/09/17 NPO Since - Liquids (Time): 06:45 NPO Since - Solids (Date): 07/08/17 NPO Since - Solids (Time): 19:00 - Smoking Hx Smoking Status: Never smoked - Family Anes Hx Family Hx Anesthesia Complications: NONE ANE Labs/Vital Signs - Vital Signs Blood Pressure: 135/94 Heart Rate: 90 Respiratory Rate: 18 O2 Sat (%): 95 Height: 163.83 cm Weight: 117.934 kg ANE Physical Exam - Airway Neck exam: FROM Mallampati Score: Class 2 Mouth exam: normal dental/mouth exam - Pulmonary Pulmonary: no respiratory distress - Cardiovascular Cardiovascular: regular rate and rhythym - ASA Status ASA Status: III ANE Anesthesia Plan Anesthesia Plan: general endotracheal anesthesia
[2017-07-09] MEDS ORDERED: PROPOFOL 200 MG/20 ML VIAL ONE (11:50)
[2017-07-09] MEDS ORDERED: fentaNYL 100 MCG/2 ML INJ ONE ×3 (11:50→13:11)
[2017-07-09] MEDS ORDERED: PROMETHAZINE HCL 25 MG/ML INJ IVP PRN (12:15)
[2017-07-09] MEDS ORDERED: HYDROmorphONE/DILAUDID 2 MG/ML INJ IVP PRN (12:15)
[2017-07-09] MEDS ORDERED: NALOXONE HCL 0.4 MG/ML INJ IVP PRN ×2 (12:15→14:36)
[2017-07-09] MEDS ORDERED: ONDANSETRON 4 MG/2 ML VIAL IVP PRN ×2 (12:15→16:02)
[2017-07-09] MEDS ORDERED: ONDANSETRON 4 MG/2 ML VIAL ONE (12:26)
[2017-07-09] MEDS ORDERED: DEXAMETHASONE 4 MG/ML VIAL ONE (12:26)
[2017-07-09] MEDS ORDERED: ROCURONIUM 50 MG/5 ML VIAL ONE (12:26)
[2017-07-09] MEDS ORDERED: SUGAMMADEX SODIUM 200 MG/2 ML VIAL IVP ONE (12:49)
[2017-07-09] MEDS ORDERED: PHENYLEPHRINE HCL 100 MCG/ML SYR ONE (12:50)
--- NOTE | 2017-07-09 13:02 | POSTOPPROG ---
Post Op Note Date of Operation: 07/09/17 Surgeon: Lawrence Mckenna [employer] System Administrator: Glen Chen Anesthesiologist: Dr. Coto Anesthesia: GET(General Endotracheal) Pre-op Diagnosis: Cholelithiasis Post-op Diagnosis: same, with cholecystitis Procedure: Lap teja Inf/Abcess present in the surg proc area at time of surgery?: Yes Depth: Organ Space EBL: Minimal
--- NOTE | 2017-07-09 13:06 | POSTANESTH ---
Post Anesthetic Evaluation Cardiovascular Status: Normal, Stable Respiratory Status: Normal, Stable Level of Consciousness/Mental Status: Can Participate in Eval Pain Control: Adequate, Prn Tx Ordered Nausea/Vomiting Control: Adequate, Prn Tx Ordered Complications Possibly Related to Anesthesia: None Noted
[2017-07-09] MEDS ORDERED: HYDROmorphONE/DILAUDID 2 MG/ML INJ ONE (13:10)
[2017-07-09] MEDS: fentaNYL 100 MCG/2 ML INJ IVP PRN ×2 (13:13→13:29)
[2017-07-09] MEDS ORDERED: OXYCODONE/APAP 5/325 TAB PO ONE (14:45)
--- NOTE | 2017-07-09 16:15 | GOP ---
[f rep st] OPERATIVE REPORT DATE OF OPERATION: 07/09/2017 SURGEON: Ray Mckenna MD MATERIALS COORDINATOR: Harry hCen, LINE ASSIGNER, [facility], whose presence was requested by me and medically necessary for the safe and timely completion of this case. ANESTHESIA: General endotracheal anesthesia. ANESTHESIOLOGIST: Rosalba Coto MD. PREOPERATIVE DIAGNOSIS: Symptomatic cholelithiasis. POSTOPERATIVE DIAGNOSIS: Symptomatic cholelithiasis, with cholecystitis. PROCEDURE PERFORMED: Laparoscopic cholecystectomy. FINDINGS: The patient had inflammation of the gallbladder with multiple small stones. No other lesi ons were identified. Fundoplication could not be evaluated due to scar tissue. ESTIMATED BLOOD LOSS: 20 cc. INDICATIONS: 32-year-old female with a history of abdominal pain. Ultrasound demonstrated gallstone s. Risks and benefits of the procedure were discussed with the patient and her family, their questio ns were answered. They wish to proceed. DESCRIPTION OF PROCEDURE: The patient was in the supine position. After the induction of adequate g eneral endotracheal anesthesia, the patient was prepped and draped in the standard surgical fashion. The supraumbilical area was infiltrated with 0.5% Marcaine for local anesthesia. A 5-mm incision wa s made and the abdominal wall was elevated. A Veress needle was inserted and after noting proper pre ssures, the abdomen was insufflated with carbon dioxide. A 5-mm trocar was passed and the camera foll owed. There was no apparent damage with trocar placement. Three more ports were placed; two 5-mm po rts in the right subcostal area, and one 11-mm port in the subxiphoid area. These were all placed du ring direct vision after injecting 0.5% Marcaine for local anesthesia. The gallbladder was then grasped and elevated. Adhesions were taken down using blunt dissection and cautery. The cystic structures were carefully dissected in a similar fashion. The cystic duct and c ystic artery were clearly identified. In addition, the subhepatic space was dissected. Once this cri tical view was obtained, the cystic duct and cystic artery were clipped and transected with scissors. The gallbladder was then elevated off the liver bed using cautery and blunt dissection. It was wit hdrawn through the subxiphoid port. The abdomen was then inspected and good hemostasis was noted. The fascia at the 11-mm port site was closed using 0 Vicryl in an interrupted fashion. All trocars were removed under direct vision, and t he pneumoperitoneum was allowed to escape. The wounds were thoroughly irrigated and the skin was nila sed with 5-0 Monocryl in a subcuticular stitch. Needle and sponge counts were correct. The wounds w ere sterilely dressed. The patient was extubated and taken to the post-anesthesia care unit in stabl e condition. COMPLICATIONS: None. DRAINS: None. ADDENDUM: Gallbladder was withdrawn through the subxiphoid port using a retrieval bag. Abdomen was thoroughly irrigated and aspirated. Good hemostasis was noted. /[id number]/MODL
[2017-07-09] MEDS: oxyCODONE IR 5 MG TAB PO PRN (19:32)
[2017-07-09] MEDS: OXcarbazepine 300 MG TAB PO SCH (20:01)
[2017-07-09] MEDS ORDERED: MONTELUKAST SODIUM 10 MG TAB PO SCH (21:00)
[2017-07-09] MEDS ORDERED: LORazepam 1 MG TAB PO SCH (21:00)
[2017-07-09] MEDS ORDERED: GABAPENTIN 300 MG CAP PO SCH (21:00)
[2017-07-10] MEDS: ACETAMINOPHEN 325 MG TAB PO PRN ×2 (00:02→08:04)
[2017-07-10] MEDS: oxyCODONE IR 5 MG TAB PO PRN ×2 (02:54→07:59)
[2017-07-10] MEDS: IBUPROFEN 600 MG TAB PO PRN ×2 (05:03→11:11)
[2017-07-10] MEDS ORDERED: ARIPiprazole 10 MG TAB PO SCH (09:00)
[2017-07-10] MEDS ORDERED: CETIRIZINE 10 MG TAB PO SCH (09:00)
[2017-07-10] MEDS: OXcarbazepine 300 MG TAB PO SCH (11:39)
[2017-07-10 12:32] VITALS: BP 120/77
== END 2017-07-10 13:27 | disposition home or self-care (01) ==
LOC: FSGY 09:16 → FOB 16:01
PROVIDERS: ADMIT Surgery; ATTEND Surgery
PROC: 0FT44ZZ Resection of Gallbladder, Percutaneous Endoscopic Approach (ICD-10-PCS; principal; 2017-07-09 10:45)
DX: K80.10 Calculus of gallbladder with chronic cholecystitis without obstruction (principal); J45.40 Moderate persistent asthma, uncomplicated; B35.6 Tinea cruris; F41.9 Anxiety disorder, unspecified; G43.909 Migraine, unspecified, not intractable, without status migrainosus; E88.81 Metabolic syndrome and other insulin resistance; Z98.51 Tubal ligation status
CPT/HCPCS: 47562; 88304; J0694; J1100; J1170; J2370; J2405; J2704; J3010

== ENCOUNTER → 2017-07-18 | Outpatient (CLI) | payer OTHER | LOC: FCPNEURO 19:22 | PROVIDERS: ATTEND Psychiatry & Neurology Sleep Medicine | DX: G47.33 Obstructive sleep apnea (adult) (pediatric) (principal) ==

== ENCOUNTER 2017-07-19 10:21 | Emergency (ER) | payer OTHER ==
[2017-07-19] MEDS ORDERED: NS 1,000 ML IV ONE (11:16)
[2017-07-19] MEDS ORDERED: PROMETHAZINE HCL 25 MG/ML INJ IVP ONE (11:16)
[2017-07-19] MEDS ORDERED: KETAMINE 500 MG/10 ML VIAL NASAL ONE (11:24)
--- NOTE | 2017-07-19 11:25 | EDPHY ---
General Time Seen by Provider: 07/19/17 11:10 Narrative: CHIEF COMPLAINT: Abdominal pain, recent surgery HISTORY OF PRESENT ILLNESS: Patient presents with complaints of abdominal pain, nausea vomiting. She had her gallbladder removed on the . Since then she says that"I have never been able to get my pain under control." She has increasing nausea vomiting. No fever. No chills. No trauma injury. No urinary complaints at this time but thinks she may have urinary tract infection. No other associated complaints or modifying factors. REVIEW OF SYSTEMS: Ten systems reviewed and are negative unless otherwise noted in the HPI PCP: Kenyatta Coates NP SPECIALISTS: Dr. Mckenna, general surgery micro computer specialist PAST MEDICAL HISTORY: Reflux, anxiety, bipolar, attention deficit hyperactivity disorder, migraine headaches, orthopedic injuries, complex regional pain syndrome, vertigo, chronic pain PAST SURGICAL HISTORY: Laparoscopic cholecystectomy July 10. Conner fundoplication, tubal ligation, septoplasty, turbinate plasty, elbow surgery SOCIAL HISTORY: Nonsmoker. Lives here independently. FAMILY HISTORY: Noncontributory EXAMINATION General Appearance: Alert, no distress. Well-developed well-nourished. Tearful Head: normocephalic, atraumatic Eyes: Pupils equal and round, no conjunctival pallor or injection ENT, Mouth: Mucous membranes moist Neck: Normal inspection, supple, non-tender Respiratory: Lungs are clear to auscultation no wheezing, rhonchi or crackles Cardiovascular: Regular rate and rhythm no murmur Gastrointestinal: Obese Abdomen is soft and nondistended. Bowel sounds are appreciated in all 4 quadrants. There is tenderness in all 4 quadrants. No tympany. No rigidity. No guarding. No CVA tenderness Back: non-tender, no bony abnormalities Neurological: A&O, nonfocal, normal gait Skin: Warm and dry, no rash Extremities: Nontender, no pedal edema Psychiatric: Mood and affect normal. Anxious DIFFERENTIAL DIAGNOSES: Including but not limited to postoperative pain, retained gallstone, seroma, abscess, bowel obstruction, enteritis, colitis MDM: 11:25 a.m. Abdominal pain post laparoscopic cholecystectomy 9 days ago. Her abdominal exam does reveal tenderness in all 4 quadrants but no guarding or tympany. I have ordered i-STAT and CT scan of the abdomen pelvis given her recent surgery. I have also ordered ketamine intranasal, IV fluid and nausea medication. She is in no acute distress. Her vital signs are all within normal limits. 12:00 p.m. Laboratory studies reveal mild elevation of her transaminases without any elevation of her bilirubin or lipase. CT scan pending. 12:28 p.m. Notified by radiologist Dr. Devi. CT scan abdomen pelvis does not reveal any acute findings. 12:50 p.m. Patient re-evaluated. She is feeling significantly better. The ketamine intranasal has alleviated her pain. She does not require any narcotics. She would like to be discharged home as her pain is manageable and she has oxycodone at home. She will follow up with her general surgeon and her statuary painter. I recommended that she follow up on her liver function test with her general surgeon or primary care physician. We discussed ED precautions and she would like to go home. She is discharged stable condition. SUPERVISION: Patient was independently examined, but I discussed the case with my secondary supervising physician Dr. Carlin - Diagnostics Imaging Results: Imaging Impressions Abdomen CT 07/19/17 11:26 Impression: 1. No post cholecystectomy abscess or biloma. 2. Normal appendix. No appendicitis, bowel obstruction or adynamic ileus. Findings discussed with Emergency Department physician assistant warehouse manager, Tyrese Vieira PA-C on July 19, 2017 at 1231 hours. - History Smoking Status: Never smoked - Objective Vital Signs: Initial Vital Signs Temperature (C) 97.7 F 07/19/17 10:23 Heart Rate 79 07/19/17 10:23 Respiratory Rate 20 07/19/17 10:23 Blood Pressure 144/96 H 07/19/17 10:23 O2 Sat (%) 94 07/19/17 10:23 O2 Delivery Mode Room Air Allergies/Adverse Reactions: hydrocodone bitartrate [From Vicodin] Allergy (Intermediate, Verified 07/19/17 10:23) Vomiting metformin Allergy (Mild, Verified 07/19/17 10:23) Rash adhesive tape Allergy (Verified 07/19/17 10:23) Rash amoxicillin Allergy (Verified 07/19/17 10:23) Rash Milk Containing Products [dairy] Allergy (Verified 07/19/17 10:23) Dyspnea polyethylene glycol [From Golytely] Allergy (Verified 07/19/17 10:23) polyethylene glycol 3350 [From Golytely] Allergy (Verified 07/19/17 10:23) potassium chloride [From Golytely] Allergy (Verified 07/19/17 10:23) sodium [From Golytely] Allergy (Verified 07/19/17 10:23) sodium bicarbonate [From Golytely] Allergy (Verified 07/19/17 10:23) sodium chloride [From Golytely] Allergy (Verified 07/19/17 10:23) sodium sulfate [From Golytely] Allergy (Verified 07/19/17 10:23) sodium sulfate anhydrous [From Golytely] Allergy (Verified 07/19/17 10:23) golight Allergy (Intermediate, Uncoded 07/19/17 10:23) Vomiting other allergy Allergy (Uncoded 07/19/17 10:23) Home Medications: Medication Instructions Recorded ARIPiprazole [Abilify 10 mg (*)] 10 mg PO DAILY 11/16/12 Montelukast Sodium [Singulair 10 10 mg PO HS 11/16/12 mg (*)] OXcarbazepine [Trileptal 300mg (*)] 600 mg PO BID 11/16/12 Methylphenidate HCl [METADATE CD] 10 mg PO DAILY 11/21/13 LORazepam [Ativan (*)] 1 mg PO HS 11/22/13 Levalbuterol 0.63 mg [Xopenex 0.63 mg IH Q6 PRN #1 deyvial 11/23/13 0.63MG Neb (*)] Diclofenac Sodium [Voltaren 75 MG 75 mg PO BID 02/22/16 (*)] Cetirizine [ZyrTEC 10 mg (*)] 10 mg PO DAILY 05/18/16 LORazepam [Ativan (*)] 1 mg PO DAILY PRN 05/18/16 Ondansetron Odt [Zofran Odt 4 mg 4 mg PO Q4 PRN #12 tab 06/27/17 (*)] Acetaminophen [Tylenol ES 500 mg 500 mg PO BID PRN 07/09/17 (*)] Gabapentin [Neurontin 300 MG (*)] 300 mg PO HS 07/09/17 Oxycodone HCl [Oxyir] 5 mg PO BID 07/09/17 ZOLMitriptan [Zomig 2.5MG (*)] 2.5 mg PO PRN PRN 07/09/17 oxyCODONE IR [Oxycodone Ir (*)] 5 mg PO BID PRN 07/09/17 Laboratory Results: Laboratory Results 07/19/17 11:36 07/19/17 11:36 07/19/17 07/19/17 07/19/17 12:38 11:39 11:36 WBC RBC Hgb POC Hgb 15.0 gm/dL gm/dL (12.6-16.3) Hct POC Hct 44 % % (38-47) MCV MCH MCHC RDW Plt Count MPV Neut % (Auto) Lymph % (Auto) [place] % (Auto) Eos % (Auto) Baso % (Auto) Nucleat RBC Rel Count Absolute Neuts (auto) Absolute Lymphs (auto) Absolute Monos (auto) Absolute Eos (auto) Absolute Basos (auto) Absolute Nucleated RBC Immature Gran % Immature Gran # POC Sodium 131 mEq/L L mEq/L (135-145) Sodium 129 mEq/L L mEq/L (135-145) POC Potassium 4.0 mEq/L mEq/L (3.3-5.0) Potassium 4.3 mEq/L mEq/L (3.5-5.2) POC Chloride 93 mEq/L L mEq/L (97-110) Chloride 94 mEq/L L mEq/L (97-110) Carbon Dioxide 26 mEq/l mEq/l (22-31) Anion Gap 9 mEq/L mEq/L (8-16) POC BUN 6 mg/dL L mg/dL (7-23) BUN 8 mg/dL mg/dL (7-23) Creatinine 0.5 mg/dL L mg/dL (0.6-1.0) POC Creatinine 0.6 mg/dL mg/dL (0.6-1.0) Estimated GFR > 60 Glucose 86 mg/dL mg/dL (70-100) POC Glucose 93 mg/dL mg/dL (70-100) Calcium 9.0 mg/dL mg/dL (8.5-10.4) Total Bilirubin 0.5 mg/dL mg/dL (0.1-1.4) Conjugated Bilirubin 0.4 mg/dL mg/dL (0.0-0.5) Unconjugated Bilirubin 0.1 mg/dL mg/dL (0.0-1.1) AST 62 IU/L H IU/L (14-46) ALT 94 IU/L H IU/L (9-52) Alkaline Phosphatase 87 IU/L IU/L (38-126) Total Protein 7.1 g/dL g/dL (6.3-8.2) Albumin 4.0 g/dL g/dL (3.5-5.0) Lipase 70 IU/L IU/L (23-300) Urine Color PALE YELLOW Urine Appearance CLEAR Urine pH 7.0 (5.0-7.5) Ur Specific Rowe 1.024 (1.002-1.030) Urine Protein NEGATIVE (NEGATIVE) Urine Ketones NEGATIVE (NEGATIVE) Urine Blood NEGATIVE (NEGATIVE) Urine Nitrate NEGATIVE (NEGATIVE) Urine Bilirubin NEGATIVE (NEGATIVE) Urine Urobilinogen NEGATIVE EU EU (0.2-1.0) Ur Leukocyte Esterase NEGATIVE (NEGATIVE) Urine RBC NONE SEEN /hpf /hpf (0-3) Urine WBC NONE SEEN /hpf /hpf (0-3) Ur Epithelial Cells TRACE /lpf /lpf (NONE-1+) Urine Glucose NEGATIVE (NEGATIVE) 07/19/17 11:36 WBC 9.45 10^3/uL 10^3/uL (3.80-9.50) RBC 4.54 10^6/uL 10^6/uL (4.18-5.33) Hgb 14.6 g/dL g/dL (12.6-16.3) POC Hgb Hct 41.2 % % (38.0-47.0) POC Hct MCV 90.7 fL fL (81.5-99.8) MCH 32.2 pg pg (27.9-34.1) MCHC 35.4 g/dL g/dL (32.4-36.7) RDW 12.5 % % (11.5-15.2) Plt Count 239 10^3/uL 10^3/uL (150-400) MPV 8.7 fL fL (8.7-11.7) Neut % (Auto) 77.0 % H % (39.3-74.2) Lymph % (Auto) 16.7 % % (15.0-45.0) [place] % (Auto) 5.1 % % (4.5-13.0) Eos % (Auto) 0.6 % % (0.6-7.6) Baso % (Auto) 0.1 % L % (0.3-1.7) Nucleat RBC Rel Count 0.0 % % (0.0-0.2) Absolute Neuts (auto) 7.27 10^3/uL H 10^3/uL (1.70-6.50) Absolute Lymphs (auto) 1.58 10^3/uL 10^3/uL (1.00-3.00) Absolute Monos (auto) 0.48 10^3/uL 10^3/uL (0.30-0.80) Absolute Eos (auto) 0.06 10^3/uL 10^3/uL (0.03-0.40) Absolute Basos (auto) 0.01 10^3/uL L 10^3/uL (0.02-0.10) Absolute Nucleated RBC 0.00 10^3/uL 10^3/uL (0-0.01) Immature Gran % 0.5 % % (0.0-1.1) Immature Gran # 0.05 10^3/uL 10^3/uL (0.00-0.10) POC Sodium Sodium POC Potassium Potassium POC Chloride Chloride Carbon Dioxide Anion Gap POC BUN BUN Creatinine POC Creatinine Estimated GFR Glucose POC Glucose Calcium Total Bilirubin Conjugated Bilirubin Unconjugated Bilirubin AST ALT Alkaline Phosphatase Total Protein Albumin Lipase Urine Color Urine Appearance Urine pH Ur Specific Rowe Urine Protein Urine Ketones Urine Blood Urine Nitrate Urine Bilirubin Urine Urobilinogen Ur Leukocyte Esterase Urine RBC Urine WBC Ur Epithelial Cells Urine Glucose Medications Given: Discontinued Medications Sodium Chloride (Ns) 1,000 mls @ 0 mls/hr IV EDNOW ONE; Wide Open PRN Reason: Protocol Stop: 07/19/17 11:17 Last Admin: 07/19/17 11:41 Dose: 1,000 mls Ketamine HCl (Ketamine) 50 mg NASAL EDNOW ONE Stop: 07/19/17 11:25 Last Admin: 07/19/17 11:42 Dose: 50 mg Promethazine HCl (Phenergan) 12.5 mg IVP ONCE ONE Stop: 07/19/17 11:17 Last Admin: 07/19/17 11:41 Dose: 12.5 mg Point of Care Test Results: 07/19/17 11:39 POC Sodium 131 L POC Potassium 4.0 POC Chloride 93 L POC BUN 6 L POC Creatinine 0.6 POC Glucose 93 Departure - Departure Disposition: Home, Routine, Self-Care Clinical Impression: Post-operative pain, Transaminitis Nausea & vomiting Qualifiers: Vomiting type: unspecified Vomiting Intractability: non-intractable Qualified Code(s): R11.2 - Nausea with vomiting, unspecified Condition: Good Instructions: Pain Management (ED), Abdominal Pain (ED) Additional Instructions: 1. Contact your established primary care physician, statuary painter and general surgeon 2. ED precautions as discussed 3. He will need to follow up with primary care physician or general surgeon regarding her mild elevated liver function test Referrals: Kenyatta Coates NP [Primary Care Provider] - As per Instructions Stand Alone Forms: Work Excuse
[2017-07-19 11:49] LABS: PLATELET COUNT 239 10^3/uL (150-400)
[2017-07-19] MEDS ORDERED: IOPAMIDOL (ISOVUE-300) 100 ML BTL ONE (11:59)
[2017-07-19 13:17] VITALS: BP 129/90
== END 2017-07-19 13:16 | disposition home or self-care (01) ==
DX: G89.18 Other acute postprocedural pain (principal); R74.0 Nonspecific elevation of levels of transaminase and lactic acid dehydrogenase [LDH]; R11.2 Nausea with vomiting, unspecified; E86.9 Volume depletion, unspecified; Z90.49 Acquired absence of other specified parts of digestive tract; Z98.51 Tubal ligation status
CPT/HCPCS: 74177; 96361; 96374; 99285; J2550; Q9967; 82947-QW

== ENCOUNTER → 2017-08-06 | Outpatient (CLI) | payer OTHER | LOC: BMCIMAGING 12:31 | PROVIDERS: ATTEND Allergy & Immunology Allergy | DX: I51.7 Cardiomegaly (principal); J45.909 Unspecified asthma, uncomplicated ==

== ENCOUNTER 2017-09-15 17:58 | Emergency (ER) | payer OTHER ==
[2017-09-15 18:04] VITALS: BP 120/90
[2017-09-15] MEDS ORDERED: KETOROLAC 30 MG/1 ML SDV IM ONE (18:10)
--- NOTE | 2017-09-15 18:13 | EDPHY ---
H & P Stated Complaint: l foot and ankle pain/inj Time Seen by Provider: 09/15/17 18:05 HPI/ROS: CHIEF COMPLAINT: Left ankle pain HISTORY OF PRESENT ILLNESS: Patient is a 32-year-old female who comes to the emergency department complaining of left ankle pain. It began about 3 hr ago. She denies any injury or accident. She does have a history of surge that ankle in 2011 for tendon repair. She also has a history of regional pain syndrome. No erythema or swelling. She has normal movement and can ambulate. No bony tenderness. She denies other injuries or pain. She states that she took 1 of her oxycodone at home as well as Tylenol without significant improvement. No fevers. REVIEW OF SYSTEMS: Constitutional: denies: chills, fever, recent illness, recent injury EENTM: denies: blurred vision, double vision, nose congestion Respiratory: denies: cough, shortness of breath Cardiac: denies: chest pain, irregular heart rate, lightheadedness, palpitations Gastrointestinal/Abdominal: denies: abdominal pain, diarrhea, nausea, vomiting, blood streaked stools Genitourinary: denies: dysuria, frequency, hematuria, pain Musculoskeletal: See HPI Skin: denies: lesions, rash, jaundice, bruising Neurological: denies: headache, numbness, paresthesia, tingling, dizziness, weakness Hematologic/Lymphatic: denies: blood clots, easy bleeding, easy bruising Immunologic/allergic: denies: HIV/AIDS, transplant EXAM: GENERAL: Well-appearing, well-nourished and in no acute distress. HEAD: Atraumatic, normocephalic. EYES: Pupils equal round and reactive to light, extraocular movements intact, sclera anicteric, conjunctiva are normal. ENT: TMs normal, nares patent, oropharynx clear without exudates. Moist mucous membranes. NECK: Normal range of motion, supple without lymphadenopathy or JVD. LUNGS: Breath sounds clear to auscultation bilaterally and equal. No wheezes rales or rhonchi. HEART: Regular rate and rhythm without murmurs, rubs or gallops. ABDOMEN: Soft, nontender, normoactive bowel sounds. No guarding, no rebound. No masses appreciated. BACK: No CVA tenderness, no spinal tenderness, step-offs or deformities EXTREMITIES: Pain just the distal to left lateral ankle. No obvious swelling. No deformity. NEUROLOGICAL: Cranial nerves II through XII grossly intact. Normal speech, normal gait. 5/5 strength, normal movement in all extremities, normal sensation PSYCH: Normal mood, normal affect. SKIN: Warm, dry, normal turgor, no visible rashes or lesions. Source: Patient - Personal History LMP (Females 10-55): 1-7 Days Ago Current Tetanus Diphtheria and Acellular Pertussis (TDAP): Yes Tetanus Vaccine Date: 2013 - Medical/Surgical History Hx Asthma: Yes Hx Chronic Respiratory Disease: No Hx Diabetes: No Hx Cardiac Disease: No Hx Renal Disease: No Hx Cirrhosis: No Hx Alcoholism: No Hx HIV/AIDS: No Hx Splenectomy or Spleen Trauma: No Other PMH: esophageal reflux, anxiety, bipolar , ADHD, bladder control issues, migraines. left elbow surgery and 2 left ankle surgery-Dx with regional complex pain syndrome., PNA. "pre-diabetic" vertigo, GI sx, teja. anya fundip. surg-tubal ligation. septo plasty, turminate reduction - Family History Significant Family History: No pertinent family hx - Social History Smoking Status: Never smoked Alcohol Use: Sober Drug Use: None Constitutional: Initial Vital Signs Temperature (C) 36.3 C 09/15/17 18:02 Heart Rate 67 09/15/17 18:02 Respiratory Rate 16 09/15/17 18:02 Blood Pressure 120/90 H 09/15/17 18:02 O2 Sat (%) 97 09/15/17 18:02 O2 Delivery Mode Room Air Allergies/Adverse Reactions: hydrocodone bitartrate [From Vicodin] Allergy (Intermediate, Verified 09/15/17 18:00) Vomiting metformin Allergy (Mild, Verified 09/15/17 18:00) Rash adhesive tape Allergy (Verified 09/15/17 18:00) Rash amoxicillin Allergy (Verified 09/15/17 18:00) Rash doxycycline Allergy (Verified 09/15/17 18:04) Milk Containing Products [dairy] Allergy (Verified 09/15/17 18:00) Dyspnea polyethylene glycol [From Golytely] Allergy (Verified 09/15/17 18:00) polyethylene glycol 3350 [From Golytely] Allergy (Verified 09/15/17 18:00) potassium chloride [From Golytely] Allergy (Verified 09/15/17 18:00) sodium [From Golytely] Allergy (Verified 09/15/17 18:00) sodium bicarbonate [From Golytely] Allergy (Verified 09/15/17 18:00) sodium chloride [From Golytely] Allergy (Verified 09/15/17 18:00) sodium sulfate [From Golytely] Allergy (Verified 09/15/17 18:00) sodium sulfate anhydrous [From Golytely] Allergy (Verified 09/15/17 18:00) golight Allergy (Intermediate, Uncoded 07/19/17 10:23) Vomiting other allergy Allergy (Uncoded 07/19/17 10:23) Home Medications: Medication Instructions Recorded ARIPiprazole [Abilify 10 mg (*)] 10 mg PO DAILY 11/16/12 Montelukast Sodium [Singulair 10 10 mg PO HS 11/16/12 mg (*)] OXcarbazepine [Trileptal 300mg (*)] 600 mg PO BID 11/16/12 Methylphenidate HCl [METADATE CD] 10 mg PO DAILY 11/21/13 LORazepam [Ativan (*)] 1 mg PO HS 11/22/13 Levalbuterol 0.63 mg [Xopenex 0.63 mg IH Q6 PRN #1 deyvial 11/23/13 0.63MG Neb (*)] Diclofenac Sodium [Voltaren 75 MG 75 mg PO BID 02/22/16 (*)] Cetirizine [ZyrTEC 10 mg (*)] 10 mg PO DAILY 05/18/16 LORazepam [Ativan (*)] 1 mg PO DAILY PRN 05/18/16 Ondansetron Odt [Zofran Odt 4 mg 4 mg PO Q4 PRN #12 tab 06/27/17 (*)] Acetaminophen [Tylenol ES 500 mg 500 mg PO BID PRN 07/09/17 (*)] Gabapentin [Neurontin 300 MG (*)] 300 mg PO HS 07/09/17 Oxycodone HCl [Oxyir] 5 mg PO BID 07/09/17 ZOLMitriptan [Zomig 2.5MG (*)] 2.5 mg PO PRN PRN 07/09/17 oxyCODONE IR [Oxycodone Ir (*)] 5 mg PO BID PRN 07/09/17 Medical Decision Making - Diagnostics Imaging: Discussed imaging studies w/ call circuit worker Radiologist ED Course/Re-evaluation: 6:45 p.m. the patient is doing well. We discussed the x-ray results which are reassuring. We discussed Velcro splinting verses Pedro wrap. She declines either. She would prefer to keep it mobile. I agree that this is reasonable. She declines further workup or testing at this time. Differential Diagnosis: Partial list of the Differential diagnosis considered include but were not limited to; contusion, strain, tendinitis and although unlikely based on the history and physical exam, I also considered tendon rupture, fracture. I discussed these differential diagnoses and the plan with the patient as well as the usual and expected course. The patient understands that the diagnosis is provisional and that in medicine we are not always correct and that further workup is often warranted. Usual and customary warnings were given. All of the patient's questions were answered. The patient was instructed to return to the emergency department should the symptoms at all worsen or return, otherwise to followup with the physician as we discussed. - Data Points Medications Given: Discontinued Medications Ketorolac Tromethamine (Toradol) 30 mg IM EDNOW ONE Stop: 09/15/17 18:11 Last Admin: 09/15/17 18:18 Dose: 30 mg Departure - Departure Disposition: Home, Routine, Self-Care Clinical Impression: Left lateral ankle pain Condition: Fair Instructions: Arthralgia (ED) Referrals: Kenyatta Coates NP [Primary Care Provider] - As per Instructions Isaiah Arroyo MD [Medical Doctor] - As per Instructions
== END 2017-09-15 18:50 | disposition home or self-care (01) ==
DX: M25.572 Pain in left ankle and joints of left foot (principal); J45.909 Unspecified asthma, uncomplicated
CPT/HCPCS: 73610; 96372; 99284; J1885

== ENCOUNTER → 2017-11-08 | Outpatient (CLI) | payer OTHER | LOC: FIMAGING 06:41 | PROVIDERS: ATTEND Psychiatry & Neurology Neurology | DX: G93.9 Disorder of brain, unspecified (principal) | CPT/HCPCS: 70553; A9585 ==

== ENCOUNTER 2017-11-18 16:33 | Emergency (ER) | payer OTHER ==
[2017-11-18] MEDS ORDERED: IPRATROPIUM/ALBUTEROL 3 ML DEYVIAL ONE (16:52)
[2017-11-18] MEDS ORDERED: IPRATROPIUM/ALBUTEROL 3 ML DEYVIAL IH ONE (16:56)
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
[2017-11-18] MEDS ORDERED: ALBUTEROL 3 ML DEYVIAL IH ONE (17:19)
[2017-11-18] MEDS ORDERED: predniSONE 20 MG TAB PO ONE (17:53)
[2017-11-18 18:03] VITALS: BP 119/84
== END 2017-11-18 18:03 | disposition home or self-care (01) ==
DX: J45.901 Unspecified asthma with (acute) exacerbation (principal); K21.9 Gastro-esophageal reflux disease without esophagitis; F41.9 Anxiety disorder, unspecified
CPT/HCPCS: 99284; J7512; J7613

== ENCOUNTER 2017-11-26 06:35 | Emergency (ER) | payer OTHER ==
--- NOTE | 2017-11-26 07:21 | EDPHY ---
H & P Time Seen by Provider: 11/26/17 06:57 HPI/ROS: HPI Concerned about asthma. 32-year-old female by private vehicle. This patient has a history of asthma. She was seen in our emergency department for an asthma exacerbation about a week ago. She was placed on a short course of prednisone. She reports that she has a history of bipolar and after the 3rd day on prednisone she felt more agitated and aggressive towards others so she stopped taking the prednisone. She presents to the emergency department this morning stating that she felt short of breath. She reports however that she feels better now. Her asthma medications currently include Xopenex as well as Singulair. She has been taking these medications as prescribed. ROS: Constitutional: No fever, no chills. No weakness. Eyes: No discharge. No changes in vision. ENT: No sore throat. No nasal congestion or rhinorrhea. Respiratory: No cough. As above. Cardiac: No chest pain, no palpitations. Gastrointestinal: No abdominal pain, no vomiting, no diarrhea. Genitourinary: No hematuria. No dysuria or increased frequency with urination. Musculoskeletal: No back pain. No neck pain. No myalgias or arthralgias. Skin: No rashes. Neurological: No headache. No focal weakness or altered sensation. Past medical history: Acid reflux, anxiety, bipolar, bladder control issues, migraine headaches, regional complex pain syndrome, pneumonia, septoplasty, tubal ligation. Social history: Nonsmoker. No alcohol. Here by herself. Physical Exam: General Appearance: Alert, no distress. This patient is responding to questions appropriately and in full sentences. This patient appears well- hydrated and well-nourished. Eyes: Pupils equal and round no pallor or injection. No lid edema, erythema or injection. Respiratory: There are no retractions, lungs are clear to auscultation with good air movement bilaterally. No wheezing. No rhonchi. Chest: Regular rate and rhythm. No murmur appreciated. Neurological: Motor sensory function is grossly intact. Cranial nerves are normal. Gait is normal. Skin: Warm and dry, no rashes. Musculoskeletal: Neck is supple and nontender. Extremities are symmetrical. All joints range without pain or impingement. Psychiatric: No agitation. No depression. Database: EKG: Imaging: Procedures: Emergency department course: Triage vital signs reviewed and are normal. After my evaluation I discussed putting her on a another short course of prednisone. She does not want to do this. On my evaluation her pulse oximetries are 96-98% on room air. She is speaking effort Twyla and in full sentences. She has no tachypnea. No evidence of respiratory distress. She feels comfortable going home and continuing her Xopenex and Singulair as prescribed. I feel this is reasonable. She can easily return to the emergency department if needed. I have instructed her to follow up with her primary care physician within the next 1-2 days for re-evaluation. Return to emergency department precautions were reviewed with her. All of her questions were answered. She was discharged from the emergency department in good condition. Differential Diagnosis: The differential diagnosis on this patient includes but is not limited to asthma exacerbation, anxiety. This represents a partial list of diagnoses considered. These considerations are based on history, physical exam, past history, reassessment and diagnostic testing. Smoking Status: Never smoked Constitutional: Initial Vital Signs Temperature (C) 36.8 C 11/26/17 06:42 Heart Rate 84 11/26/17 06:42 Respiratory Rate 20 11/26/17 06:42 Blood Pressure 135/95 H 11/26/17 06:42 O2 Sat (%) 93 11/26/17 06:42 O2 Delivery Mode Room Air Allergies/Adverse Reactions: hydrocodone bitartrate [From Vicodin] Allergy (Intermediate, Verified 11/26/17 06:41) Vomiting metformin Allergy (Mild, Verified 11/26/17 06:41) Rash adhesive tape Allergy (Verified 11/26/17 06:41) Rash amoxicillin Allergy (Verified 11/26/17 06:41) Rash doxycycline Allergy (Verified 11/26/17 06:41) Milk Containing Products [dairy] Allergy (Verified 11/26/17 06:41) Dyspnea polyethylene glycol [From Golytely] Allergy (Verified 11/26/17 06:41) polyethylene glycol 3350 [From Golytely] Allergy (Verified 11/26/17 06:41) potassium chloride [From Golytely] Allergy (Verified 11/26/17 06:41) sodium [From Golytely] Allergy (Verified 11/26/17 06:41) sodium bicarbonate [From Golytely] Allergy (Verified 11/26/17 06:41) sodium chloride [From Golytely] Allergy (Verified 11/26/17 06:41) sodium sulfate [From Golytely] Allergy (Verified 11/26/17 06:41) sodium sulfate anhydrous [From Golytely] Allergy (Verified 11/26/17 06:41) golight Allergy (Intermediate, Uncoded 11/26/17 06:41) Vomiting other allergy Allergy (Uncoded 11/26/17 06:41) Home Medications: Medication Instructions Recorded ARIPiprazole [Abilify 10 mg (*)] 10 mg PO DAILY 11/16/12 Montelukast Sodium [Singulair 10 10 mg PO HS 11/16/12 mg (*)] OXcarbazepine [Trileptal 300mg (*)] 600 mg PO BID 11/16/12 LORazepam [Ativan (*)] 1 mg PO HS 11/22/13 Levalbuterol 0.63 mg [Xopenex 0.63 mg IH Q6 PRN #1 deyvial 11/23/13 0.63MG Neb (*)] Diclofenac Sodium [Voltaren 75 MG 75 mg PO BID 02/22/16 (*)] Cetirizine [ZyrTEC 10 mg (*)] 10 mg PO DAILY 05/18/16 LORazepam [Ativan (*)] 1 mg PO DAILY PRN 05/18/16 Ondansetron Odt [Zofran Odt 4 mg 4 mg PO Q4 PRN #12 tab 06/27/17 (*)] Acetaminophen [Tylenol ES 500 mg 500 mg PO BID PRN 07/09/17 (*)] Gabapentin [Neurontin 300 MG (*)] 300 mg PO HS 07/09/17 Oxycodone HCl [Oxyir] 5 mg PO BID 07/09/17 ZOLMitriptan [Zomig 2.5MG (*)] 2.5 mg PO PRN PRN 07/09/17 oxyCODONE IR [Oxycodone Ir (*)] 5 mg PO BID PRN 07/09/17 Pantoprazole Sodium [Protonix 40mg 40 mg PO HS #30 tab 11/11/17 (*)] Departure - Departure Disposition: Home, Routine, Self-Care Clinical Impression: Asthma exacerbation Condition: Good Instructions: Asthma (ED) Additional Instructions: Read and follow provided instructions. Follow-up with your primary care physician within the next 1-2 days for re- evaluation. Take your asthma medication as prescribed. Return to the emergency department for worsening symptoms, shortness of breath, difficulty breathing or other serious concerns. Referrals: Kenyatta Coates NP [Primary Care Provider] - As per Instructions
[2017-11-26 07:31] VITALS: BP 133/95
== END 2017-11-26 07:31 | disposition home or self-care (01) ==
DX: J45.901 Unspecified asthma with (acute) exacerbation (principal)

== ENCOUNTER 2017-12-04 10:11 | Emergency (ER) | payer OTHER ==
[2017-12-04] MEDS ORDERED: KETAMINE 500 MG/10 ML VIAL NASAL ONE (11:19)
[2017-12-04] MEDS ORDERED: DIAZEPAM 5 MG TAB PO ONE (11:19)
--- NOTE | 2017-12-04 11:21 | EDPHY ---
H & P Stated Complaint: chronic pain l leg/pain worse/komal pain doc/ unable to do anything for Time Seen by Provider: 12/04/17 11:05 HPI/ROS: CHIEF COMPLAINT: Acute on chronic left ankle pain HISTORY OF PRESENT ILLNESS: 32-year-old female history of complex regional pain syndrome to her left ankle complaining of 1 week of exacerbation, after she possibly twisted her ankle. She is able to bear weight albeit with pain. She is followed by Dr. Kelli De Los Santos, has a pain contract, states that the oxycodone she is prescribed is not controlling her pain, has been in contact with Dr. Kelli De Los Santos and has largely not been given further prescriptions. PRIMARY CARE PROVIDER: REVIEW OF SYSTEMS: 10 systems reviewed and negative with the exception of the elements mentioned in the history of present illness PAST MEDICAL & SURGICAL HISTORY: complex regional pain syndrome to the left ankle SOCIAL HISTORY:Nonsmoker PHYSICAL EXAM (Prior to examination, patient consented to physical exam, hands were washed and my usual and customary physical exam procedures followed) 1) GENERAL: Well-developed, well-nourished, alert and oriented. crying. 2) HEAD: Normocephalic, atraumatic 3) HEENT: Pupils equal, round, reactive to light bilaterally. Sclera anicteric. 4) NECK: Full range of motion, no meningeal signs. 5) LUNGS: Clear auscultation bilaterally, no wheezes, no rhonchi, no retractions. 6) HEART: Regular rate and rhythm, no murmur, no heave, no gallop. 7) ABDOMEN: No guarding, no rebound, no focal tenderness, negative McBurney's, negative Villeda's, negative Rovsing's, negative peritoneal sign, 8) MUSCULOSKELETAL: Left lower extremity: Soft compartments, no discoloration , negative Homans no palpable cord, tender to palpation lateral malleolus with no visible or palpable abnormality beyond pain. No crepitus. No discoloration. DP PT pulses present and brisk. Dorsiflexion plantar flexion elicits no pain proximally. Brisk pulses and capillary refill distally. Otherwise, Moving all extremities, no focal areas of tenderness, no obvious trauma. No peripheral edema or discoloration. 9) BACK: No CVA tenderness, no midline vertebral tenderness, no fluctuance, no step-off, no obvious trauma, no visual or palpable abnormality. 10) SKIN: No rash, no petechiae. 11) Psychiatric: Patient is oriented X 3, there is no agitation. DIFFERENTIAL DIAGNOSIS: [ In no particular include but limited to compartment syndrome, septic arthritis, acute exacerbation of chronic pain - Personal History LMP (Females 10-55): Over 28 Days Ago Current Tetanus Diphtheria and Acellular Pertussis (TDAP): Yes Tetanus Vaccine Date: 2013 - Medical/Surgical History Hx Asthma: Yes Hx Chronic Respiratory Disease: No Hx Diabetes: Yes Hx Cardiac Disease: No Hx Renal Disease: No Hx Cirrhosis: No Hx Alcoholism: No Hx HIV/AIDS: No Hx Splenectomy or Spleen Trauma: No Other PMH: esophageal reflux, anxiety, bipolar , ADHD, bladder control issues, migraines. left elbow surgery and 2 left ankle surgery-Dx with regional complex pain syndrome., PNA. "pre-diabetic" vertigo, GI sx, teja. anya fundip. surg-tubal ligation. septo plasty, turminate reduction - Social History Smoking Status: Never smoked Constitutional: Initial Vital Signs Temperature (C) 36.6 C 12/04/17 10:26 Heart Rate 93 12/04/17 10:26 Respiratory Rate 18 12/04/17 10:26 Blood Pressure 158/85 H 12/04/17 10:26 O2 Sat (%) 92 12/04/17 10:26 O2 Delivery Mode Room Air Allergies/Adverse Reactions: hydrocodone bitartrate [From Vicodin] Allergy (Intermediate, Verified 12/04/17 10:26) Vomiting metformin Allergy (Mild, Verified 12/04/17 10:26) Rash adhesive tape Allergy (Verified 12/04/17 10:26) Rash amoxicillin Allergy (Verified 12/04/17 10:26) Rash doxycycline Allergy (Verified 12/04/17 10:26) Milk Containing Products [dairy] Allergy (Verified 12/04/17 10:26) Dyspnea polyethylene glycol [From Golytely] Allergy (Verified 12/04/17 10:26) polyethylene glycol 3350 [From Golytely] Allergy (Verified 12/04/17 10:26) potassium chloride [From Golytely] Allergy (Verified 12/04/17 10:26) sodium [From Golytely] Allergy (Verified 12/04/17 10:26) sodium bicarbonate [From Golytely] Allergy (Verified 12/04/17 10:26) sodium chloride [From Golytely] Allergy (Verified 12/04/17 10:26) sodium sulfate [From Golytely] Allergy (Verified 12/04/17 10:26) sodium sulfate anhydrous [From Golytely] Allergy (Verified 12/04/17 10:26) golight Allergy (Intermediate, Uncoded 11/26/17 06:41) Vomiting other allergy Allergy (Uncoded 11/26/17 06:41) Home Medications: Medication Instructions Recorded ARIPiprazole [Abilify 10 mg (*)] 10 mg PO DAILY 11/16/12 Montelukast Sodium [Singulair 10 10 mg PO HS 11/16/12 mg (*)] OXcarbazepine [Trileptal 300mg (*)] 600 mg PO BID 11/16/12 LORazepam [Ativan (*)] 1 mg PO HS 11/22/13 Levalbuterol 0.63 mg [Xopenex 0.63 mg IH Q6 PRN #1 deyvial 11/23/13 0.63MG Neb (*)] Diclofenac Sodium [Voltaren 75 MG 75 mg PO BID 02/22/16 (*)] Cetirizine [ZyrTEC 10 mg (*)] 10 mg PO DAILY 05/18/16 LORazepam [Ativan (*)] 1 mg PO DAILY PRN 05/18/16 Ondansetron Odt [Zofran Odt 4 mg 4 mg PO Q4 PRN #12 tab 06/27/17 (*)] Acetaminophen [Tylenol ES 500 mg 500 mg PO BID PRN 07/09/17 (*)] Gabapentin [Neurontin 300 MG (*)] 300 mg PO HS 07/09/17 Oxycodone HCl [Oxyir] 5 mg PO BID 07/09/17 ZOLMitriptan [Zomig 2.5MG (*)] 2.5 mg PO PRN PRN 07/09/17 oxyCODONE IR [Oxycodone Ir (*)] 5 mg PO BID PRN 07/09/17 Pantoprazole Sodium [Protonix 40mg 40 mg PO HS #30 tab 11/11/17 (*)] Medical Decision Making - Diagnostics Imaging Results: Imaging Impressions Ankle X-Ray 12/04/17 11:19 Impression: Medial soft tissue swelling. ED Course/Re-evaluation: 11:20 a.m.: I reviewed the patient's old medical records including PDMP. Discussed hospital alternatives to opiates. She agrees to intranasal ketamine, benzodiazepine and case management follow-up. Informed patient that will not be able to provide her further opiates either in the ER or prescription. She became visibly upset started crying at this time. I saw this patient independently based on established practice protocols. Care of patient under supervision of secondary supervising physician Dr Morelos . Doubt septic arthritis. 12:05 p.m.: Re-evaluation after intranasal ketamine and oral benzodiazepine. She is smiling at this time states that she feels significantly better and would like to be discharged home. I offered to Quinn brito however states that this well exacerbate her chronic regional pain syndrome. I do not think that further imaging is indicated at this time. player manager has spoke with the patient as well. Patient will be discharged with no further prescriptions. She will be given my usual customary orthopedic precautions and instructions. - Data Points Medications Given: Discontinued Medications Diazepam (Valium) 5 mg PO EDNOW ONE Stop: 12/04/17 11:20 Last Admin: 12/04/17 11:34 Dose: 5 mg Ketamine HCl (Ketamine) 50 mg NASAL EDNOW ONE Stop: 12/04/17 11:20 Last Admin: 12/04/17 11:34 Dose: 50 mg Departure - Departure Disposition: Home, Routine, Self-Care Clinical Impression: Left ankle pain Qualifiers: Chronicity: acute Qualified Code(s): M25.572 - Pain in left ankle and joints of left foot Chronic pain Qualifiers: Chronic pain type: chronic pain syndrome Qualified Code(s): G89.4 - Chronic pain syndrome CRPS (complex regional pain syndrome) type I of lower limb Qualifiers: Laterality: left Qualified Code(s): G90.522 - Complex regional pain syndrome I of left lower limb Condition: Good Instructions: Chronic Pain (ED), Arthralgia (ED) Additional Instructions: Return to the ER immediately if you experience discoloration, have worsening pain, numbness, tingling, or any other symptoms that concern you. If you received x-rays in the emergency department today, be advised, that ligamentous , tendon, muscular, and other non-bony injury cannot be fully ruled out. Referrals: Kenyatta Coates NP [Primary Care Provider] - 1-2 days without fail
[2017-12-04 12:13] VITALS: BP 151/88
--- NOTE | 2017-12-04 15:27 | ASMTCMCOM ---
CM Note CM Note Notes: Chart reviewed, see ER report for details regarding current ER visit. I met with patient to discuss follow up and confirm status of her PCP and pain management. Patient states that she still sees Mari Coates NP at [facility] [place] and her last appointment was yesterday. She tells me she did not discuss her ankle or other chronic pain issues at this appointment. Patient states that she sees Dr. De Los Santos or "pain management" clinic every 2 months. I have encouraged patient to follow up with Mari (PCP) and I have faxed a copty of ER report to Mari at [facility] [place] Date Signed: 12/04/2017 03:27 PM Electronically Signed By:Mandie Mckay RN
== END 2017-12-04 12:14 | disposition home or self-care (01) ==
DX: M25.572 Pain in left ankle and joints of left foot (principal); G90.522 Complex regional pain syndrome I of left lower limb; F31.9 Bipolar disorder, unspecified; F41.9 Anxiety disorder, unspecified; Z98.890 Other specified postprocedural states

== ENCOUNTER → 2017-12-16 | Outpatient (CLI) | payer OTHER | LOC: FCPNEURO 20:00 | PROVIDERS: ATTEND Psychiatry & Neurology Sleep Medicine | DX: G47.33 Obstructive sleep apnea (adult) (pediatric) (principal) ==

== ENCOUNTER → 2018-01-10 | Outpatient (CLI) | payer OTHER | LOC: BMCIMAGING 11:47 | PROVIDERS: ATTEND Internal Medicine | DX: M54.2 Cervicalgia (principal) ==

== ENCOUNTER 2018-01-13 06:34 | Emergency (ER) | payer OTHER ==
[2018-01-13 06:41] VITALS: BP 152/104
[2018-01-13] MEDS ORDERED: METOCLOPRAMIDE 10 MG/2 ML VIAL IVP ONE (06:58)
[2018-01-13] MEDS ORDERED: NS 1,000 ML IV ONE (06:58)
[2018-01-13] MEDS ORDERED: KETOROLAC 30 MG/1 ML SDV IVP ONE (06:58)
--- NOTE | 2018-01-13 07:00 | EDPHY ---
H & P Stated Complaint: NECK PAIN AND VOMITING S/P FALL BACK HIT HEAD, X-RAYS NEG Time Seen by Provider: 01/13/18 06:53 HPI/ROS: CHIEF COMPLAINT: Headache, vomiting, neck pain HISTORY OF PRESENT ILLNESS: Patient is a 32-year-old overweight female who states that she fell on and hit her head on a chair. She was seen by her primary on Saturday and diagnosed with a concussion. She has had continued headaches and neck pain who over the weekend and today has vomited 3 times. She is concerned for intracranial injury. No vision changes. No hearing changes. Able to ambulate without difficulty. No lethargy. No seizure-like activity. No chest pain or shortness of breath. No fevers or recent illness. Severity: Moderate Modifying factors: Seem to be worsening with time REVIEW OF SYSTEMS: Constitutional: denies: chills, fever, recent illness, recent injury EENTM: denies: blurred vision, double vision, nose congestion Respiratory: denies: cough, shortness of breath Cardiac: denies: chest pain, irregular heart rate, lightheadedness, palpitations Gastrointestinal/Abdominal: denies: abdominal pain, diarrhea, nausea, vomiting, blood streaked stools Genitourinary: denies: dysuria, frequency, hematuria, pain Musculoskeletal: denies: joint pain, muscle pain Skin: denies: lesions, rash, jaundice, bruising Neurological: See HPI denies: numbness, paresthesia, tingling, dizziness, weakness Hematologic/Lymphatic: denies: blood clots, easy bleeding, easy bruising Immunologic/allergic: denies: HIV/AIDS, transplant 10 systems reviewed and negative except as noted EXAM: GENERAL: Well-appearing, well-nourished and in no acute distress. HEAD: Atraumatic, normocephalic. EYES: Pupils equal round and reactive to light, extraocular movements intact, sclera anicteric, conjunctiva are normal. ENT: TMs normal, nares patent, oropharynx clear without exudates. Moist mucous membranes. NECK: Right muscular pain and spasming improves with massage. Normal range of motion, supple without lymphadenopathy or JVD. LUNGS: Breath sounds clear to auscultation bilaterally and equal. No wheezes rales or rhonchi. HEART: Regular rate and rhythm without murmurs, rubs or gallops. ABDOMEN: Soft, nontender, normoactive bowel sounds. No guarding, no rebound. No masses appreciated. BACK: No CVA tenderness, no spinal tenderness, step-offs or deformities EXTREMITIES: Normal range of motion, no pitting or edema. No clubbing or cyanosis. NEUROLOGICAL: Cranial nerves II through XII grossly intact. Normal speech, normal gait. 5/5 strength, normal movement in all extremities, normal sensation , normal reflexes PSYCH: Normal mood, normal affect. SKIN: Warm, dry, normal turgor, no visible rashes or lesions. Source: Patient - Personal History LMP (Females 10-55): Over 28 Days Ago Current Tetanus/Diphtheria Vaccine: Yes Current Tetanus Diphtheria and Acellular Pertussis (TDAP): Yes Tetanus Vaccine Date: 2017 - Medical/Surgical History Hx Asthma: Yes Hx Chronic Respiratory Disease: No Hx Diabetes: Yes Hx Cardiac Disease: No Hx Renal Disease: No Hx Cirrhosis: No Hx Alcoholism: No Hx HIV/AIDS: No Hx Splenectomy or Spleen Trauma: No Other PMH: esophageal reflux, anxiety, bipolar , ADHD, PTSD, bladder control issues, migraines. Dx with regional complex pain syndrome.,. Cholecystectomy, anya fundip, tubal ligation, septo plasty, turminate reduction - Family History Significant Family History: No pertinent family hx - Social History Smoking Status: Never smoked Alcohol Use: None Drug Use: None Constitutional: Initial Vital Signs Temperature (C) 36.5 C 01/13/18 06:37 Heart Rate 80 01/13/18 06:37 Respiratory Rate 18 01/13/18 06:37 Blood Pressure 152/104 H 01/13/18 06:37 O2 Sat (%) 95 01/13/18 06:37 O2 Delivery Mode Room Air Allergies/Adverse Reactions: hydrocodone bitartrate [From Vicodin] Allergy (Intermediate, Verified 01/13/18 06:41) Vomiting metformin Allergy (Mild, Verified 01/13/18 06:41) Rash adhesive tape Allergy (Verified 01/13/18 06:41) Rash amoxicillin Allergy (Verified 01/13/18 06:41) Rash doxycycline Allergy (Verified 01/13/18 06:41) Milk Containing Products [dairy] Allergy (Verified 01/13/18 06:41) Dyspnea polyethylene glycol [From Golytely] Allergy (Verified 01/13/18 06:41) polyethylene glycol 3350 [From Golytely] Allergy (Verified 01/13/18 06:41) potassium chloride [From Golytely] Allergy (Verified 01/13/18 06:41) sodium [From Golytely] Allergy (Verified 01/13/18 06:41) sodium bicarbonate [From Golytely] Allergy (Verified 01/13/18 06:41) sodium chloride [From Golytely] Allergy (Verified 01/13/18 06:41) sodium sulfate [From Golytely] Allergy (Verified 01/13/18 06:41) sodium sulfate anhydrous [From Golytely] Allergy (Verified 01/13/18 06:41) golight Allergy (Intermediate, Uncoded 01/13/18 06:41) Vomiting other allergy Allergy (Uncoded 01/13/18 06:41) Home Medications: Medication Instructions Recorded ARIPiprazole [Abilify 10 mg (*)] 10 mg PO DAILY 11/16/12 Montelukast Sodium [Singulair 10 10 mg PO HS 11/16/12 mg (*)] OXcarbazepine [Trileptal 300mg (*)] 600 mg PO BID 11/16/12 LORazepam [Ativan (*)] 1 mg PO HS 11/22/13 Levalbuterol 0.63 mg [Xopenex 0.63 mg IH Q6 PRN #1 deyvial 11/23/13 0.63MG Neb (*)] Diclofenac Sodium [Voltaren 75 MG 75 mg PO BID 02/22/16 (*)] Cetirizine [ZyrTEC 10 mg (*)] 10 mg PO DAILY 05/18/16 LORazepam [Ativan (*)] 1 mg PO DAILY PRN 05/18/16 Ondansetron Odt [Zofran Odt 4 mg 4 mg PO Q4 PRN #12 tab 06/27/17 (*)] Acetaminophen [Tylenol ES 500 mg 500 mg PO BID PRN 07/09/17 (*)] Gabapentin [Neurontin 300 MG (*)] 300 mg PO HS 07/09/17 Oxycodone HCl [Oxyir] 5 mg PO BID 07/09/17 ZOLMitriptan [Zomig 2.5MG (*)] 2.5 mg PO PRN PRN 04/24/18 oxyCODONE IR [Oxycodone Ir (*)] 5 mg PO BID PRN 07/09/17 Pantoprazole Sodium [Protonix 40mg 40 mg PO HS #30 tab 11/11/17 (*)] Metoclopramide [Reglan 10 mg tab 10 mg PO BID PRN #5 tab 01/13/18 (RX)] Topiramate [Topamax] 50 mg PO 01/13/18 Medical Decision Making - Diagnostics Imaging Results: Imaging Impressions Cervical Spine CT 01/13/18 06:58 Impression: No evidence for acute intracranial abnormality. CT cervical spine without contrast. History: Trauma. Pain.. Technique: 1.5 mm helical images were obtained the cervical spine without contrast. Multiplanar reformation was performed. Radiation dose reduction technique was utilized. Findings: No evidence for fracture or subluxation. Disk heights are maintained. No evidence for prevertebral soft tissue swelling. No significant neural foraminal or spinal canal encroachment. Impression: No evidence for cervical spine fracture. Results called and discussed with REN HODGE at 01/13/2018 0729 hours. Final interpretation concurs with initial preliminary electronic systems technician radiologist impression. Head CT 01/13/18 06:58 Impression: No evidence for acute intracranial abnormality. CT cervical spine without contrast. History: Trauma. Pain.. Technique: 1.5 mm helical images were obtained the cervical spine without contrast. Multiplanar reformation was performed. Radiation dose reduction technique was utilized. Findings: No evidence for fracture or subluxation. Disk heights are maintained. No evidence for prevertebral soft tissue swelling. No significant neural foraminal or spinal canal encroachment. Impression: No evidence for cervical spine fracture. Results called and discussed with REN HODGE at 01/13/2018 0729 hours. Final interpretation concurs with initial preliminary electronic systems technician radiologist impression. Imaging: Discussed imaging studies w/ on call pharmacy technician Radiologist ED Course/Re-evaluation: 7:45 a.m. the patient is feeling much better. She is no longer nauseous. Her headache is resolved. She is reassured by the CT imaging. We discussed concussion symptoms and gradual return to activity. I recommended she sleep as much as possible today. She is happy with this plan. She declines further workup or testing. Her is here to take her home. We discussed indications for returning. Differential Diagnosis: Partial list of the Differential diagnosis considered include but were not limited to; concussion, cervical strain, anxiety, vomiting and although unlikely based on the history and physical exam, I also considered intracranial injury, fracture, cervical spine injury. I discussed these differential diagnoses and the plan with the patient as well as the usual and expected course. The patient understands that the diagnosis is provisional and that in medicine we are not always correct and that further workup is often warranted. Usual and customary warnings were given. All of the patient's questions were answered. The patient was instructed to return to the emergency department should the symptoms at all worsen or return, otherwise to followup with the physician as we discussed. - Data Points Medications Given: Discontinued Medications Sodium Chloride (Ns) 1,000 mls @ 0 mls/hr IV EDNOW ONE; Wide Open PRN Reason: Protocol Stop: 01/13/18 06:59 Last Admin: 01/13/18 07:18 Dose: 1,000 mls Ketorolac Tromethamine (Toradol) 15 mg IVP EDNOW ONE Stop: 01/13/18 06:59 Last Admin: 01/13/18 07:19 Dose: 15 mg Metoclopramide HCl (Reglan Injection) 10 mg IVP EDNOW ONE Stop: 01/13/18 06:59 Last Admin: 01/13/18 07:19 Dose: 10 mg Departure - Departure Disposition: Home, Routine, Self-Care Clinical Impression: Concussion Qualifiers: Encounter type: initial encounter Loss of consciousness presence/duration: without LOC Qualified Code(s): S06.0X0A - Concussion without loss of consciousness, initial encounter Condition: Fair Instructions: Concussion (ED) Referrals: Kenyatta Coates NP [Primary Care Provider] - 2-3 days, call for appt. Prescriptions: Metoclopramide [Reglan 10 mg tab (RX)] 10 mg PO BID PRN #5 tab PRN Reason: Headache/vomiting
== END 2018-01-13 08:03 | disposition home or self-care (01) ==
DX: S06.0X0A Concussion without loss of consciousness, initial encounter (principal); E86.9 Volume depletion, unspecified; W01.198A Fall on same level from slipping, tripping and stumbling with subsequent striking against other object, initial encounter
CPT/HCPCS: 70450; 72125; 96361; 96374; 96375; 99285; J1885; J2765

== ENCOUNTER 2018-02-15 22:14 | Emergency (ER) | payer OTHER ==
[2018-02-15 22:59] LABS: PLATELET COUNT 265 10^3/uL (150-400)
[2018-02-15] MEDS ORDERED: FAMOTIDINE 20 MG/NACL 50 ML IV ONE (23:11)
[2018-02-15] MEDS ORDERED: NS 1,000 ML IV ONE (23:11)
[2018-02-15] MEDS ORDERED: KETOROLAC 15 MG/1 ML SDV IVP ONE (23:11)
--- NOTE | 2018-02-15 23:18 | EDPHY ---
H & P Stated Complaint: RLQ PAIN X3 DAYS, COMES/GOES, WORSE TONIGHT, SHOOTS INTO BACK Time Seen by Provider: 02/15/18 22:43 HPI/ROS: HPI The patient presents with right-sided lower quadrant abdominal pain which has been present for the last 3 days and is progressive. It is a sharp and shooting pain that begins on the right side of her abdomen and then radiates toward her back. It is intermittent, lasting for 1 1-2 minutes at a time when it occurs. It is worse after meals. And became much worse tonight. She does not have any nausea or vomiting. She has not had a fever. She does not have any anorexia. She says she has had about 3-4 loose stools a day for the last 10 days since eating something at Thanksgiving that she believes irritated her. She has about 8 months status post laparoscopic cholecystectomy performed by Dr. Mckenna. She has a history of complex regional pain syndrome but says this pain feels different, that pain involves more paresthesias then this. She has a history of GERD and hiatal hernia as well. This does not feel like that. I have reviewed her chart and she has multiple ER visits and 6 CT scans since May. REVIEW OF SYSTEMS 10 systems were reviewed and negative with the exception of the elements mentioned in the history of present illness. PMHx: History of GERD, hiatal hernia, chronic pain syndrome, complex regional pain syndrome, status post cholecystectomy, last menstrual period about 2 months ago with very irregular menses Soc Hx: Housed PHYSICAL General Appearance: Alert, no distress Eyes: Pupils equal and round no pallor or injection ENT, Mouth: Mucous membranes moist Respiratory: There are no retractions, lungs are clear to auscultation Cardiovascular: Regular rate and rhythm Gastrointestinal: Abdomen is soft and mildly tender in her right abdomen lateral to her umbilicus, right flank, no masses, bowel sounds normal Back: There is right flank tenderness, there is no midline tenderness Neurological: A&O, moves all extremities Skin: Warm and dry, no rashes Musculoskeletal: Neck is supple non tender Extremities: symmetrical, full range of motion Psychiatric: Patient is oriented X 3, there is no agitation Source: Patient Exam Limitations: No limitations - Personal History LMP (Females 10-55): Irregular Current Tetanus/Diphtheria Vaccine: Yes Tetanus Vaccine Date: 2017 - Medical/Surgical History Hx Asthma: Yes Hx Chronic Respiratory Disease: No Hx Diabetes: No Hx Cardiac Disease: No Hx Renal Disease: No Hx Cirrhosis: No Hx Alcoholism: No Hx HIV/AIDS: No Hx Splenectomy or Spleen Trauma: No Other PMH: esophageal reflux, anxiety, bipolar , ADHD, PTSD, bladder control issues, migraines. Dx with regional complex pain syndrome.,. Cholecystectomy 2018, anya fundip, tubal ligation, septo plasty, turminate reduction, ANKLE SURG, BENIGN FAMILIAL TREMOR - Social History Smoking Status: Never smoked Constitutional: Initial Vital Signs Temperature (C) 36.2 C 02/15/18 22:26 Heart Rate 70 02/15/18 22:26 Respiratory Rate 18 02/15/18 22:26 Blood Pressure 134/89 H 02/15/18 22:26 O2 Sat (%) 96 02/15/18 22:26 O2 Delivery Mode Room Air Allergies/Adverse Reactions: hydrocodone bitartrate [From Vicodin] Allergy (Intermediate, Verified 02/15/18 22:24) Vomiting metformin Allergy (Mild, Verified 02/15/18 22:24) Rash adhesive tape Allergy (Verified 02/15/18 22:24) Rash amoxicillin Allergy (Verified 02/15/18 22:24) Rash doxycycline Allergy (Verified 02/15/18 22:24) Milk Containing Products [dairy] Allergy (Verified 02/15/18 22:24) Dyspnea polyethylene glycol [From Golytely] Allergy (Verified 02/15/18 22:24) polyethylene glycol 3350 [From Golytely] Allergy (Verified 02/15/18 22:24) potassium chloride [From Golytely] Allergy (Verified 02/15/18 22:24) sodium [From Golytely] Allergy (Verified 02/15/18 22:24) sodium bicarbonate [From Golytely] Allergy (Verified 02/15/18 22:24) sodium chloride [From Golytely] Allergy (Verified 02/15/18 22:24) sodium sulfate [From Golytely] Allergy (Verified 02/15/18 22:24) sodium sulfate anhydrous [From Golytely] Allergy (Verified 02/15/18 22:24) golight Allergy (Intermediate, Uncoded 02/15/18 22:24) Vomiting other allergy Allergy (Uncoded 02/15/18 22:24) Home Medications: Medication Instructions Recorded ARIPiprazole [Abilify 10 mg (*)] 10 mg PO DAILY 11/16/12 Montelukast Sodium [Singulair 10 10 mg PO HS 11/16/12 mg (*)] OXcarbazepine [Trileptal 300mg (*)] 600 mg PO BID 11/16/12 LORazepam [Ativan (*)] 1 mg PO HS 11/22/13 Levalbuterol 0.63 mg [Xopenex 0.63 mg IH Q6 PRN #1 deyvial 11/23/13 0.63MG Neb (*)] Diclofenac Sodium [Voltaren 75 MG 75 mg PO BID 02/22/16 (*)] Cetirizine [ZyrTEC 10 mg (*)] 10 mg PO DAILY 05/18/16 LORazepam [Ativan (*)] 1 mg PO DAILY PRN 05/18/16 Ondansetron Odt [Zofran Odt 4 mg 4 mg PO Q4 PRN #12 tab 06/27/17 (*)] Acetaminophen [Tylenol ES 500 mg 500 mg PO BID PRN 07/09/17 (*)] Gabapentin [Neurontin 300 MG (*)] 300 mg PO HS 07/09/17 Oxycodone HCl [Oxyir] 5 mg PO BID 07/09/17 ZOLMitriptan [Zomig 2.5MG (*)] 2.5 mg PO PRN PRN 07/09/17 oxyCODONE IR [Oxycodone Ir (*)] 5 mg PO BID PRN 07/09/17 Topiramate [Topamax] 50 mg PO 01/13/18 Methylphenidate ER 02/15/18 Medical Decision Making - Diagnostics Imaging Results: Imaging Impressions Abdomen Ultrasound 02/15/18 23:11 Impression: 1. Minimal hepatomegaly and hepatic steatosis similar to October 2017. 2. Normal caliber common bile duct (5 mm). No discernible common bile duct stone. 3. No free fluid. 4. Somewhat limited exam due to body habitus and gassy bowel pattern. Findings discussed with Emergency Department physician, Mony Poe MD at 02/15/2018 23:52. Imaging: Discussed imaging studies w/ inbound call center agent Radiologist, I viewed and interpreted images myself Differential Diagnosis: 32-year-old female with multiple medical problems including obesity, complex regional pain syndrome, GERD with hiatal hernia, 8 months status post cholecystectomy who presents with 3 days of intermittent progressive right- sided stabbing abdominal pain which radiates toward her back and is worse after meals. On exam, well-appearing, vital signs normal, mild tenderness on her exam. Differential diagnosis includes post cholecystectomy syndrome, choledocholithiasis, gastritis, appendicitis. In the emergency department, patient was given IV fluids, medication for pain and nausea. Labs were checked and did reveal mildly elevated ALT, consistent with prior values. Right upper quadrant ultrasound demonstrated normal postsurgical changes with fatty liver. - Data Points Laboratory Results: Laboratory Results 02/15/18 22:40 02/15/18 22:40 02/15/18 02/15/18 02/15/18 22:55 22:40 22:40 WBC RBC Hgb Hct MCV MCH MCHC RDW Plt Count MPV Neut % (Auto) Lymph % (Auto) Gilchrist % (Auto) Eos % (Auto) Baso % (Auto) Nucleat RBC Rel Count Absolute Neuts (auto) Absolute Lymphs (auto) Absolute Monos (auto) Absolute Eos (auto) Absolute Basos (auto) Absolute Nucleated RBC Immature Gran % Immature Gran # Sodium 134 mEq/L L mEq/L (135-145) Potassium 4.1 mEq/L mEq/L (3.3-5.0) Chloride 98 mEq/L mEq/L (97-110) Carbon Dioxide 27 mEq/l mEq/l (22-31) Anion Gap 9 mEq/L mEq/L (6-14) BUN 10 mg/dL mg/dL (7-23) Creatinine 0.8 mg/dL mg/dL (0.6-1.0) Estimated GFR > 60 Glucose 91 mg/dL mg/dL (70-100) Calcium 9.2 mg/dL mg/dL (8.5-10.4) Total Bilirubin 0.3 mg/dL mg/dL (0.1-1.4) Conjugated Bilirubin 0.3 mg/dL mg/dL (0.0-0.5) Unconjugated Bilirubin 0.0 mg/dL mg/dL (0.0-1.1) AST 41 IU/L IU/L (14-46) ALT 70 IU/L H IU/L (9-52) Alkaline Phosphatase 72 IU/L IU/L (38-126) Total Protein 7.3 g/dL g/dL (6.3-8.2) Albumin 4.5 g/dL g/dL (3.5-5.0) Lipase 83 IU/L IU/L (23-300) Beta HCG, Qual NEGATIVE Urine Color YELLOW Urine Appearance CLEAR Urine pH 5.0 (5.0-7.5) Ur Specific Williams 1.020 (1.002-1.030) Urine Protein NEGATIVE (NEGATIVE) Urine Ketones NEGATIVE (NEGATIVE) Urine Blood NEGATIVE (NEGATIVE) Urine Nitrate NEGATIVE (NEGATIVE) Urine Bilirubin NEGATIVE (NEGATIVE) Urine Urobilinogen NEGATIVE EU EU (0.2-1.0) Ur Leukocyte Esterase NEGATIVE (NEGATIVE) Urine Glucose NEGATIVE (NEGATIVE) 02/15/18 22:40 WBC 10.28 10^3/uL H 10^3/uL (3.80-9.50) RBC 4.75 10^6/uL 10^6/uL (4.18-5.33) Hgb 15.1 g/dL g/dL (12.6-16.3) Hct 43.6 % % (38.0-47.0) MCV 91.8 fL fL (81.5-99.8) MCH 31.8 pg pg (27.9-34.1) MCHC 34.6 g/dL g/dL (32.4-36.7) RDW 12.1 % % (11.5-15.2) Plt Count 265 10^3/uL 10^3/uL (150-400) MPV 9.0 fL fL (8.7-11.7) Neut % (Auto) 64.0 % % (39.3-74.2) Lymph % (Auto) 29.1 % % (15.0-45.0) Gilchrist % (Auto) 5.8 % % (4.5-13.0) Eos % (Auto) 0.3 % L % (0.6-7.6) Baso % (Auto) 0.4 % % (0.3-1.7) Nucleat RBC Rel Count 0.0 % % (0.0-0.2) Absolute Neuts (auto) 6.58 10^3/uL H 10^3/uL (1.70-6.50) Absolute Lymphs (auto) 2.99 10^3/uL 10^3/uL (1.00-3.00) Absolute Monos (auto) 0.60 10^3/uL 10^3/uL (0.30-0.80) Absolute Eos (auto) 0.03 10^3/uL 10^3/uL (0.03-0.40) Absolute Basos (auto) 0.04 10^3/uL 10^3/uL (0.02-0.10) Absolute Nucleated RBC 0.00 10^3/uL 10^3/uL (0-0.01) Immature Gran % 0.4 % % (0.0-1.1) Immature Gran # 0.04 10^3/uL 10^3/uL (0.00-0.10) Sodium Potassium Chloride Carbon Dioxide Anion Gap BUN Creatinine Estimated GFR Glucose Calcium Total Bilirubin Conjugated Bilirubin Unconjugated Bilirubin AST ALT Alkaline Phosphatase Total Protein Albumin Lipase Beta HCG, Qual Urine Color Urine Appearance Urine pH Ur Specific Williams Urine Protein Urine Ketones Urine Blood Urine Nitrate Urine Bilirubin Urine Urobilinogen Ur Leukocyte Esterase Urine Glucose Medications Given: Discontinued Medications Sodium Chloride (Ns) 1,000 mls @ 0 mls/hr IV EDNOW ONE; Wide Open PRN Reason: Protocol Stop: 02/15/18 23:12 Last Admin: 02/15/18 23:20 Dose: 1,000 mls Famotidine/Sodium Chloride (Pepcid 20 Mg (Premix)) 50 mls @ 200 mls/hr IV EDNOW ONE Stop: 02/15/18 23:25 Last Admin: 02/15/18 23:20 Dose: 50 mls Lidocaine HCl 200 mg/ Sodium (Chloride) 120 mls @ 600 mls/hr IV EDNOW ONE Stop: 02/16/18 00:41 Last Admin: 02/16/18 00:58 Dose: 120 mls Ketorolac Tromethamine (Toradol) 15 mg IVP EDNOW ONE Stop: 02/15/18 23:12 Last Admin: 02/15/18 23:20 Dose: 15 mg Ondansetron HCl (Zofran) 4 mg IVP EDNOW ONE Stop: 02/16/18 00:07 Last Admin: 02/16/18 00:19 Dose: 4 mg Departure - Departure Disposition: Home, Routine, Self-Care Clinical Impression: Nausea Abdominal pain Qualifiers: Abdominal location: right lower quadrant Qualified Code(s): R10.31 - Right lower quadrant pain Condition: Good Instructions: Acute Abdominal Pain (ED) Referrals: Kenyatta Coates NP [Primary Care Provider] - As per Instructions
[2018-02-16] MEDS ORDERED: ONDANSETRON 4 MG/2 ML VIAL IVP ONE (00:06)
[2018-02-16] MEDS ORDERED: LIDOCAINE 1% 200 MG in NS 100 ML IV ONE (00:30)
[2018-02-16 02:49] VITALS: BP 109/86
== END 2018-02-16 02:49 | disposition home or self-care (01) ==
DX: R10.31 Right lower quadrant pain (principal); R11.0 Nausea; E86.9 Volume depletion, unspecified; K44.9 Diaphragmatic hernia without obstruction or gangrene; K21.9 Gastro-esophageal reflux disease without esophagitis
CPT/HCPCS: 76705; 96374; 96375; 99285; J1885; J2405

== ENCOUNTER 2018-02-20 16:55 | Emergency (ER) | payer OTHER ==
[2018-02-20] MEDS ORDERED: NS 1,000 ML IV ONE (17:57)
[2018-02-20] MEDS ORDERED: ONDANSETRON 4 MG/2 ML VIAL IVP ONE (17:57)
[2018-02-20] MEDS ORDERED: KETOROLAC 30 MG/1 ML SDV IVP ONE (18:08)
--- NOTE | 2018-02-20 18:11 | EDPHY ---
H & P Stated Complaint: Seen for constipation, having diarrhea and pain. Denies bleeding. Time Seen by Provider: 02/20/18 17:43 HPI/ROS: CHIEF COMPLAINT: Ongoing abdominal pain, diarrhea, nausea, vomiting HISTORY OF PRESENT ILLNESS: This is a 32-year-old female who was seen in the emergency department 5 days ago. At that time she presented with right-sided mid abdominal pain as well as right flank pain. Patient has history of reflux for which she has had a Arnol fundoplication, chronic pain syndrome, complex regional pain syndrome, she is status post cholecystectomy, and during her emergency department evaluation she was diagnosed as having constipation. Patient had a ultrasound of the right upper quadrant with no discernible common bile duct stone and normal common bile duct size. At discharge the patient was referred to her primary care physician's office who recommended that she take MiraLax. She reportsusing MiraLax for 2 days and has developed ongoing profound watery diarrhea. Her pain has continued in her right upper quadrant and now reports that she feels it more in the right flank and extending into the right shoulder. No fever, no chest pain, no shortness of breath, no palpitations, no blood in the vomit or diarrhea, no urinary complaints. REVIEW OF SYSTEMS: A comprehensive 10 system review of systems was reviewed and is otherwise negative aside from elements mentioned in the history of present illness and medical decision making. PAST MEDICAL HISTORY: Reflux, chronic pain syndrome on a pain contract, complex regional pain syndrome, status post cholecystectomy as well as Arnol fundoplication. SOCIAL HISTORY: Nonsmoker, no alcohol use, declines opiates. Has a pain contract. VITAL SIGNS Reviewed by me. GENERAL: Well-developed, well-nourished, overweight individual. Pleasant, conversant. HEENT: Atraumatic. Eyes: No icterus, no injection. Mouth: Slightly dry mucous membranes. No erythema or lesions. Neck: supple with no adenopathy. LUNGS: Clear to auscultation bilaterally, no wheezes, rhonchi or rales. CARDIAC: Regular rate and rhythm, no rubs, murmurs or gallops. ABDOMEN: Soft, moderate tenderness in the right upper quadrant, right mid quadrant, right lateral quadrant, and right flank. No guarding or rebound. BACK: Mild right CVA tenderness. EXTREMITIES: No trauma. No edema. Range of motion is normal throughout. NEURO: Alert and oriented, grossly nonfocal. SKIN: Warm and dry, no rash. PSYCHIATRIC: Normal mentation, no agitation. - Personal History Current Tetanus Diphtheria and Acellular Pertussis (TDAP): Yes Tetanus Vaccine Date: 2017 - Medical/Surgical History Hx Asthma: Yes Hx Chronic Respiratory Disease: No Hx Diabetes: No Hx Cardiac Disease: No Hx Renal Disease: No Hx Cirrhosis: No Hx Alcoholism: No Hx HIV/AIDS: No Hx Splenectomy or Spleen Trauma: No Other PMH: esophageal reflux, anxiety, bipolar , ADHD, PTSD, bladder control issues, migraines. Dx with regional complex pain syndrome.,. Cholecystectomy 2018, arnol fundip, tubal ligation, septo plasty, turminate reduction, ANKLE SURG, BENIGN FAMILIAL TREMOR - Social History Smoking Status: Never smoked Constitutional: Initial Vital Signs Temperature (C) 36.5 C 02/20/18 17:13 Heart Rate 86 02/20/18 17:13 Respiratory Rate 16 02/20/18 17:13 Blood Pressure 130/81 H 02/20/18 17:13 O2 Sat (%) 93 02/20/18 17:13 O2 Delivery Mode Room Air Allergies/Adverse Reactions: hydrocodone bitartrate [From Vicodin] Allergy (Intermediate, Verified 02/20/18 17:12) Vomiting metformin Allergy (Mild, Verified 02/20/18 17:12) Rash adhesive tape Allergy (Verified 02/20/18 17:12) Rash amoxicillin Allergy (Verified 02/20/18 17:12) Rash doxycycline Allergy (Verified 02/20/18 17:12) Milk Containing Products [dairy] Allergy (Verified 02/20/18 17:12) Dyspnea polyethylene glycol [From Golytely] Allergy (Verified 02/20/18 17:12) polyethylene glycol 3350 [From Golytely] Allergy (Verified 02/20/18 17:12) potassium chloride [From Golytely] Allergy (Verified 02/20/18 17:12) sodium [From Golytely] Allergy (Verified 02/20/18 17:12) sodium bicarbonate [From Golytely] Allergy (Verified 02/20/18 17:12) sodium chloride [From Golytely] Allergy (Verified 02/20/18 17:12) sodium sulfate [From Golytely] Allergy (Verified 02/20/18 17:12) sodium sulfate anhydrous [From Golytely] Allergy (Verified 02/20/18 17:12) golight Allergy (Intermediate, Uncoded 02/15/18 22:24) Vomiting other allergy Allergy (Uncoded 02/15/18 22:24) Home Medications: Medication Instructions Recorded ARIPiprazole [Abilify 10 mg (*)] 10 mg PO DAILY 11/16/12 Montelukast Sodium [Singulair 10 10 mg PO HS 11/16/12 mg (*)] OXcarbazepine [Trileptal 300mg (*)] 600 mg PO BID 11/16/12 LORazepam [Ativan (*)] 1 mg PO HS 11/22/13 Levalbuterol 0.63 mg [Xopenex 0.63 mg IH Q6 PRN #1 deyvial 11/23/13 0.63MG Neb (*)] Diclofenac Sodium [Voltaren 75 MG 75 mg PO BID 02/22/16 (*)] Cetirizine [ZyrTEC 10 mg (*)] 10 mg PO DAILY 05/18/16 LORazepam [Ativan (*)] 1 mg PO DAILY PRN 05/18/16 Ondansetron Odt [Zofran Odt 4 mg 4 mg PO Q4 PRN #12 tab 06/27/17 (*)] Acetaminophen [Tylenol ES 500 mg 500 mg PO BID PRN 07/09/17 (*)] Gabapentin [Neurontin 300 MG (*)] 300 mg PO HS 07/09/17 Oxycodone HCl [Oxyir] 5 mg PO BID 07/09/17 ZOLMitriptan [Zomig 2.5MG (*)] 2.5 mg PO PRN PRN 07/09/17 oxyCODONE IR [Oxycodone Ir (*)] 5 mg PO BID PRN 07/09/17 Topiramate [Topamax] 50 mg PO 01/13/18 Methylphenidate ER 02/15/18 Dicyclomine [Bentyl 20 MG (*)] 20 mg PO QID PRN #20 tab 02/20/18 Ondansetron Odt [Zofran Odt 4 mg 4 mg PO Q6 PRN #8 tab 02/20/18 (RX)] Medical Decision Making - Diagnostics Imaging Results: Abdomen CT 02/20/18 18:09 Impression: 1. Status post cholecystectomy. 2. Diffuse hepatic steatosis with mild hepatomegaly. 3. Normal appearance of the appendix. Findings were discussed with Patricia Maciel MD at 19:27, on 02/20/2018. Imaging: Discussed imaging studies w/ solutions delivery consultant Radiologist ED Course/Re-evaluation: This is a 32-year-old female who was seen here 5 days ago with right-sided abdominal pain. She presents complaining of ongoing right-sided abdominal pain as well as the development of diarrhea. Patient had been advised that she had constipation on her prior emergency department evaluation and was taking MiraLax for2 days; however her diarrhea has continued. On evaluation the patient does have moderate left upper quadrant left lateral and left flank discomfort. Laboratory evaluation demonstrates a sodium of 128, which the patient has had previously. No elevated white count. CT scan was obtained which reveals no acute process. Of note the patient has had a significant number of abdominal CTs over the last 2 years. I discussed this with the patient to advise her regarding risks of radiation with ongoing recurrent CT scans. Patient was discharged home to follow up with her primary care physician. She has not had any diarrhea while in the emergency department. I did advise her that if she could provide a stool sample this would be helpful. She does have a pain physician and is on a pain contract, thus no additional pain medications other than Bentyl for crampy abdominal pain was prescribed. Differential Diagnosis: After obtaining the patient's history and performing an examination, differential diagnosis considered included but was not limited to appendicitis, retained stone, gastritis, pancreatitis, kidney stones, constipation, urinary tract infections and other causes. - Data Points Laboratory Results: Laboratory Results 02/20/18 19:31 02/20/18 17:55 Medications Given: Discontinued Medications Dicyclomine HCl (Bentyl) 20 mg PO EDNOW ONE Stop: 02/20/18 19:50 Last Admin: 02/20/18 20:27 Dose: 20 mg Sodium Chloride (Ns) 1,000 mls @ 0 mls/hr IV EDNOW ONE; Wide Open PRN Reason: Protocol Stop: 02/20/18 17:58 Last Admin: 02/20/18 18:03 Dose: 1,000 mls Ketorolac Tromethamine (Toradol) 30 mg IVP EDNOW ONE Stop: 02/20/18 18:09 Last Admin: 02/20/18 18:30 Dose: 30 mg Lorazepam (Ativan Injection) 1 mg IVP EDNOW ONE Stop: 02/20/18 19:49 Last Admin: 02/20/18 20:28 Dose: Not Given Ondansetron HCl (Zofran) 4 mg IVP EDNOW ONE Stop: 02/20/18 17:58 Last Admin: 02/20/18 18:04 Dose: 4 mg Departure - Departure Disposition: Home, Routine, Self-Care Clinical Impression: Diarrhea Qualifiers: Diarrhea type: unspecified type Qualified Code(s): R19.7 - Diarrhea, unspecified Complex regional pain syndrome Qualifiers: Complex regional pain syndrome type: type I Complex regional pain syndrome affected site: unspecified Qualified Code(s): G90.50 - Complex regional pain syndrome I, unspecified Abdominal pain Qualifiers: Abdominal location: right upper quadrant Qualified Code(s): R10.11 - Right upper quadrant pain Condition: Fair Instructions: Acute Diarrhea (ED), Chronic Abdominal Pain (ED) Additional Instructions: If you continued to have diarrhea, you may take 1-2 doses of Imodium. Please bring a stool sample to the hospital lab if at all possible before you begin taking Imodium. You been given a prescription for Zofran. You may use this as needed for nausea or vomiting. You been given a prescription for Bentyl. This is useful for crampy abdominal pain related to constipation and gas. Try to stay well-hydrated with small frequent sips of fluid. Please follow up with your primary care physician regarding your ongoing pain. Please note, you have had a significant number of CT scans of the abdomen. In the future, CT scans should be avoided if at all possible. Referrals: NONE *PRIMARY CARE P,. [Primary Care Provider] - As per Instructions Prescriptions: Dicyclomine [Bentyl 20 MG (*)] 20 mg PO QID PRN #20 tab PRN Reason: abd pain Ondansetron Odt [Zofran Odt 4 mg (RX)] 4 mg PO Q6 PRN #8 tab PRN Reason: Nausea
[2018-02-20] MEDS ORDERED: IOPAMIDOL (ISOVUE-300) 100 ML BTL ONE (18:41)
[2018-02-20 19:35] LABS: PLATELET COUNT 205 10^3/uL (150-400)
[2018-02-20] MEDS ORDERED: LORazepam 2 MG/ML INJ IVP ONE (19:48)
[2018-02-20] MEDS ORDERED: KETAMINE 500 MG/10 ML VIAL IVP ONE (19:48)
[2018-02-20] MEDS ORDERED: DICYCLOMINE 10 MG CAP PO ONE (19:49)
[2018-02-20 21:06] VITALS: BP 129/77
== END 2018-02-20 21:08 | disposition home or self-care (01) ==
DX: R19.7 Diarrhea, unspecified (principal); G90.50 Complex regional pain syndrome I, unspecified; R10.11 Right upper quadrant pain
CPT/HCPCS: 74177; J1885; J2060; J2405; Q9967; 96374

== ENCOUNTER 2018-03-25 17:33 | Emergency (ER) | payer OTHER ==
[2018-03-25] MEDS ORDERED: HYOSCYAMINE SULFATE 0.125 MG TAB PO ONE (18:26)
[2018-03-25] MEDS ORDERED: FAMOTIDINE 20 MG/NACL 50 ML IV ONE (18:26)
[2018-03-25] MEDS ORDERED: MAG HYDROX/AL HYDROX/SIMETH 30 ML UDCUP PO ONE (18:26)
[2018-03-25] MEDS ORDERED: ONDANSETRON 4 MG/2 ML VIAL IVP ONE (18:26)
[2018-03-25] MEDS ORDERED: LIDOCAINE 2% VISCOUS 15 ML UDCUP PO ONE (18:26)
[2018-03-25] MEDS ORDERED: NS 500 ML IV ONE (18:26)
--- NOTE | 2018-03-25 18:38 | EDPHY ---
H & P Time Seen by Provider: 03/25/18 18:07 HPI/ROS: HPI Chest discomfort, 33-year-old female by private vehicle with significant other. This patient is very familiar to our emergency department and staff. She presents the emergency department stating that after lunch at around 1:00 p.m. She developed a sensation of something being stuck in her esophagus. She reports that she vomited all food content shortly after eating lunch. She still reports that she has a vague sensation of something that is stuck in her esophagus but she states that she has been able to swallow liquids without issue. She states that about an hour ago she developed some sharp mid left parasternal chest pain described as a ache and stabbing sensation. She reports that this is now better and denies this pain at this time. She has had continued nausea but no further vomiting. She states that she has issues with chronic abdominal pain but denies any abdominal pain currently. ROS: Constitutional: No fever, no chills. No weakness. Eyes: No discharge. No changes in vision. ENT: No sore throat. No nasal congestion or rhinorrhea. Respiratory: No cough. No shortness of breath. Cardiac: As above, no palpitations. Gastrointestinal: No abdominal pain, no vomiting, no diarrhea. Genitourinary: No hematuria. No dysuria or increased frequency with urination. Musculoskeletal: No back pain. No neck pain. No myalgias or arthralgias. Skin: No rashes. Neurological: No headache. No focal weakness or altered sensation. Past medical history: Esophageal reflux, anxiety, bipolar, attention deficit hyperactivity disorder, PTSD, bladder control issues, migraine headaches, complex regional pain syndrome, cholecystectomy, tubal ligation, ankle surgery, benign familial tremor. Social history: Nonsmoker. No alcohol. Here with her boyfriend. Physical Exam: General Appearance: Alert, no distress, flat affect. Obese habitus. This patient is responding to questions appropriately and in full sentences. This patient appears well-hydrated and well-nourished. Eyes: Pupils equal and round no pallor or injection. No lid edema, erythema or injection. ENT, Mouth: Mucous membranes are moist. The pharyngeal tissues are unremarkable. No edema or swelling. No asymmetry suggestive of abscess. No erythema or exudates. Respiratory: There are no retractions, lungs are clear to auscultation anteriorly with good air movement bilaterally. Cardiovascular: Regular rate and rhythm. No murmur. Gastrointestinal: Obese habitus. Abdomen is soft and nontender, no masses, bowel sounds normal. No focal tenderness at McBurney's point. No Villeda sign. Neurological: Motor sensory function is grossly intact. Cranial nerves are normal. Gait is normal. Skin: Warm and dry, no rashes. Musculoskeletal: Neck is supple and nontender. Extremities are symmetrical. All joints range without pain or impingement. Psychiatric: No agitation. No depression. Database: EKG: EKG time is 5:53 p.m.; EKG shows a narrow complex normal sinus rhythm with a ventricular rate of 82. Low voltage noted. The AR, QRS, QT intervals are within normal limits. T-wave inversion in V2. There are no ST-T wave changes indicative of ischemic or injury pattern. No evidence of right heart strain. Interpreted by me. Imaging: Chest x-ray AP portable: No free air. No obvious infiltrative process. No pneumothorax. No other acute cardiopulmonary disease process. Interpreted by me. Procedures: Emergency department course: Triage vital signs reviewed, she is mildly hypertensive. Triage vital signs are otherwise normal. An IV was placed. She was started on IV normal saline with 500 cc to be given over the next hour. She will be given a GI cocktail, 4 mg of IV Zofran and 20 mg of IV Pepcid. EKG obtained and reviewed by myself. She is low risk based on heart score. 8:30 p.m., the patient was re-evaluated, resting comfortably at this time. She is feeling much better reports resolution of her chest discomfort. She denies any chest pain. She has been swallowing liquids without issue. She feels comfortable going home at this time and I feel she is safe for discharge. Follow-up and return to emergency department precautions were reviewed with her. All of her questions were answered. She was discharged from the emergency department in good condition. Differential Diagnosis: The differential diagnosis on this patient includes but is not limited to esophageal reflux, esophageal spasm, possible esophageal abrasion status post vomiting. Retained esophageal foreign body, pulmonary embolism, aortic dissection, pneumomediastinum, acute coronary syndrome unlikely. This represents a partial list of diagnoses considered. These considerations are based on history, physical exam, past history, reassessment and diagnostic testing. Smoking Status: Never smoked Constitutional: Initial Vital Signs Temperature (C) 36.6 C 03/25/18 17:43 Heart Rate 88 03/25/18 17:43 Respiratory Rate 18 03/25/18 17:43 Blood Pressure 154/111 H 03/25/18 17:43 O2 Sat (%) 94 03/25/18 17:43 O2 Delivery Mode Room Air Allergies/Adverse Reactions: hydrocodone bitartrate [From Vicodin] Allergy (Intermediate, Verified 03/25/18 17:43) Vomiting metformin Allergy (Mild, Verified 03/25/18 17:43) Rash adhesive tape Allergy (Verified 03/25/18 17:43) Rash amoxicillin Allergy (Verified 03/25/18 17:43) Rash doxycycline Allergy (Verified 03/25/18 17:43) Milk Containing Products [dairy] Allergy (Verified 03/25/18 17:43) Dyspnea polyethylene glycol [From Golytely] Allergy (Verified 03/25/18 17:43) polyethylene glycol 3350 [From Golytely] Allergy (Verified 03/25/18 17:43) potassium chloride [From Golytely] Allergy (Verified 03/25/18 17:43) sodium [From Golytely] Allergy (Verified 03/25/18 17:43) sodium bicarbonate [From Golytely] Allergy (Verified 03/25/18 17:43) sodium chloride [From Golytely] Allergy (Verified 03/25/18 17:43) sodium sulfate [From Golytely] Allergy (Verified 03/25/18 17:43) sodium sulfate anhydrous [From Golytely] Allergy (Verified 03/25/18 17:43) golight Allergy (Intermediate, Uncoded 02/15/18 22:24) Vomiting other allergy Allergy (Uncoded 02/15/18 22:24) Home Medications: Medication Instructions Recorded ARIPiprazole [Abilify 10 mg (*)] 10 mg PO DAILY 11/16/12 Montelukast Sodium [Singulair 10 10 mg PO HS 11/16/12 mg (*)] OXcarbazepine [Trileptal 300mg (*)] 600 mg PO BID 11/16/12 LORazepam [Ativan (*)] 1 mg PO HS 11/22/13 Levalbuterol 0.63 mg [Xopenex 0.63 mg IH Q6 PRN #1 deyvial 11/23/13 0.63MG Neb (*)] Diclofenac Sodium [Voltaren 75 MG 75 mg PO BID 02/22/16 (*)] Cetirizine [ZyrTEC 10 mg (*)] 10 mg PO DAILY 05/18/16 LORazepam [Ativan (*)] 1 mg PO DAILY PRN 05/18/16 Ondansetron Odt [Zofran Odt 4 mg 4 mg PO Q4 PRN #12 tab 06/27/17 (*)] Acetaminophen [Tylenol ES 500 mg 500 mg PO BID PRN 07/09/17 (*)] Gabapentin [Neurontin 300 MG (*)] 300 mg PO HS 07/09/17 Oxycodone HCl [Oxyir] 5 mg PO BID 07/09/17 ZOLMitriptan [Zomig 2.5MG (*)] 2.5 mg PO PRN PRN 07/09/17 oxyCODONE IR [Oxycodone Ir (*)] 5 mg PO BID PRN 07/09/17 Topiramate [Topamax] 50 mg PO 01/13/18 Methylphenidate ER 02/15/18 Dicyclomine [Bentyl 20 MG (*)] 20 mg PO QID PRN #20 tab 02/20/18 Ondansetron Odt [Zofran Odt 4 mg 4 mg PO Q6 PRN #8 tab 02/20/18 (RX)] Medical Decision Making - Diagnostics Imaging Results: Imaging Impressions Chest X-Ray 03/25/18 18:29 Impression: Moderate cardiomegaly with suggestion of interstitial pulmonary edema. Would correlate. - Data Points Laboratory Results: Laboratory Results 03/25/18 19:25 03/25/18 19:25 03/25/18 03/25/18 03/25/18 19:29 19:25 19:25 WBC RBC Hgb Hct MCV MCH MCHC RDW Plt Count MPV Neut % (Auto) Lymph % (Auto) Swain % (Auto) Eos % (Auto) Baso % (Auto) Nucleat RBC Rel Count Absolute Neuts (auto) Absolute Lymphs (auto) Absolute Monos (auto) Absolute Eos (auto) Absolute Basos (auto) Absolute Nucleated RBC Immature Gran % Immature Gran # Sodium 135 mEq/L mEq/L (135-145) Potassium 3.9 mEq/L mEq/L (3.5-5.2) Chloride 105 mEq/L mEq/L (97-110) Carbon Dioxide 22 mEq/l mEq/l (22-31) Anion Gap 8 mEq/L mEq/L (6-14) BUN 12 mg/dL mg/dL (7-23) Creatinine 0.7 mg/dL mg/dL (0.6-1.0) Estimated GFR > 60 Glucose 119 mg/dL H mg/dL (70-100) Calcium 8.8 mg/dL mg/dL (8.5-10.4) Total Bilirubin 0.2 mg/dL mg/dL (0.1-1.4) Conjugated Bilirubin 0.2 mg/dL mg/dL (0.0-0.5) Unconjugated Bilirubin 0.0 mg/dL mg/dL (0.0-1.1) AST 45 IU/L IU/L (14-46) ALT 87 IU/L H IU/L (9-52) Alkaline Phosphatase 73 IU/L IU/L (38-126) POC Troponin I 0.02 ng/mL ng/mL (0.00-0.08) Total Protein 6.7 g/dL g/dL (6.3-8.2) Albumin 4.0 g/dL g/dL (3.5-5.0) Lipase 88 IU/L IU/L (23-300) Beta HCG, Qual NEGATIVE 03/25/18 19:25 WBC 9.28 10^3/uL 10^3/uL (3.80-9.50) RBC 4.36 10^6/uL 10^6/uL (4.18-5.33) Hgb 14.3 g/dL g/dL (12.6-16.3) Hct 41.0 % % (38.0-47.0) MCV 94.0 fL fL (81.5-99.8) MCH 32.8 pg pg (27.9-34.1) MCHC 34.9 g/dL g/dL (32.4-36.7) RDW 12.0 % % (11.5-15.2) Plt Count 225 10^3/uL 10^3/uL (150-400) MPV 9.1 fL fL (8.7-11.7) Neut % (Auto) 71.0 % % (39.3-74.2) Lymph % (Auto) 22.0 % % (15.0-45.0) Swain % (Auto) 6.1 % % (4.5-13.0) Eos % (Auto) 0.3 % L % (0.6-7.6) Baso % (Auto) 0.3 % % (0.3-1.7) Nucleat RBC Rel Count 0.0 % % (0.0-0.2) Absolute Neuts (auto) 6.58 10^3/uL H 10^3/uL (1.70-6.50) Absolute Lymphs (auto) 2.04 10^3/uL 10^3/uL (1.00-3.00) Absolute Monos (auto) 0.57 10^3/uL 10^3/uL (0.30-0.80) Absolute Eos (auto) 0.03 10^3/uL 10^3/uL (0.03-0.40) Absolute Basos (auto) 0.03 10^3/uL 10^3/uL (0.02-0.10) Absolute Nucleated RBC 0.00 10^3/uL 10^3/uL (0-0.01) Immature Gran % 0.3 % % (0.0-1.1) Immature Gran # 0.03 10^3/uL 10^3/uL (0.00-0.10) Sodium Potassium Chloride Carbon Dioxide Anion Gap BUN Creatinine Estimated GFR Glucose Calcium Total Bilirubin Conjugated Bilirubin Unconjugated Bilirubin AST ALT Alkaline Phosphatase POC Troponin I Total Protein Albumin Lipase Beta HCG, Qual Medications Given: Discontinued Medications Al Hydroxide/Mg Hydroxide (Maalox Susp) 30 ml PO ONCE ONE Stop: 03/25/18 18:27 Last Admin: 03/25/18 18:50 Dose: 30 ml Hyoscyamine Sulfate (Levsin, Hyomax-Sl) 0.25 mg PO ONCE ONE Stop: 03/25/18 18:27 Last Admin: 03/25/18 18:49 Dose: 0.25 mg Sodium Chloride (Ns) 500 mls @ 0 mls/hr IV EDNOW ONE; Wide Open PRN Reason: Protocol Stop: 03/25/18 18:27 Last Admin: 03/25/18 18:43 Dose: 500 mls Famotidine/Sodium Chloride (Pepcid 20 Mg (Premix)) 50 mls @ 200 mls/hr IV EDNOW ONE Stop: 03/25/18 18:40 Last Admin: 03/25/18 18:46 Dose: 50 mls Lidocaine (Lidocaine 2% Viscous) 15 ml PO ONCE ONE Stop: 03/25/18 18:27 Last Admin: 03/25/18 18:50 Dose: 15 ml Ondansetron HCl (Zofran) 4 mg IVP EDNOW ONE Stop: 03/25/18 18:27 Last Admin: 03/25/18 18:48 Dose: 4 mg Point of Care Test Results: Chemistry 03/25/18 19:29 POC Troponin I 0.02 ng/mL ng/mL (0.00-0.08) Departure - Departure Disposition: Home, Routine, Self-Care Clinical Impression: Chest discomfort, Reflux esophagitis Condition: Good Instructions: Gastroesophageal Reflux Disease (ED), Chest Pain (ED) Additional Instructions: Read and follow provided instructions. Follow-up with your primary care physician tomorrow for re-evaluation as discussed. Keep yourself well hydrated. Take your medication as prescribed. Return to the emergency department for worsening symptoms, return of chest pain , shortness of breath, difficulty swallowing or other serious concerns. Referrals: Kenyatta Coates NP [Primary Care Provider] - As per Instructions
[2018-03-25 19:37] LABS: PLATELET COUNT 225 10^3/uL (150-400)
[2018-03-25 21:13] VITALS: BP 123/67
--- NOTE | 2018-03-29 06:11 | CPEKG ---
Test Reason : OPEN Blood Pressure : / mmHG Vent. Rate : 082 BPM Atrial Rate : 083 BPM P-R Int : 140 ms QRS Dur : 088 ms QT Int : 406 ms P-R-T Axes : 018 026 029 degrees QTc Int : 475 ms Sinus rhythm Low voltage, precordial leads Nonspecific T abnormalities, anterior leads Confirmed by Brenden Kyle ([id number] on 03/29/2018 6:10:56 AM Referred By: Confirmed By:Brenden Kyle
== END 2018-03-25 21:11 | disposition home or self-care (01) ==
DX: R07.89 Other chest pain (principal); K21.0 Gastro-esophageal reflux disease with esophagitis; E86.9 Volume depletion, unspecified; F41.9 Anxiety disorder, unspecified; F31.9 Bipolar disorder, unspecified; F90.9 Attention-deficit hyperactivity disorder, unspecified type
CPT/HCPCS: 71045; 93005; 96365; 96375; 99284; J2405; 84484-ER

== ENCOUNTER → 2018-04-12 | Outpatient (CLI) | payer OTHER | LOC: FIMAGING 06:04 | PROVIDERS: ATTEND Physician Assistant | DX: M51.36 Other intervertebral disc degeneration, lumbar region (principal) ==

== ENCOUNTER 2018-04-30 19:00 | Emergency (ER) | payer OTHER ==
--- NOTE | 2018-04-30 19:29 | EDPHY ---
H & P Time Seen by Provider: 04/30/18 19:14 HPI/ROS: CHIEF COMPLAINT: Rash HISTORY OF PRESENT ILLNESS: The patient is a 33-year-old female who presents emergency department the rash on her chest, left shoulder and face. She is concerned that she was exposed to something which she does not know what it is. The patient states she has not recently changed any of her medications. Patient has no shortness of breath. No cough. No fevers or chills. Patient states she cannot take Benadryl because Effexor psychiatric medications. Patient has had no nausea vomiting. No abdominal pain. REVIEW OF SYSTEMS: 10 systems were reveiwed and are negative with the exception of the elements mentioned in the history of present illness. Past Medical/Surgical History: Wounds esophageal reflux, anxiety, bipolar disorder, attention deficit hyperactivity disorder, PTSD, migraine Past surgical history: Includes cholecystectomy, fundoplication tubal ligation , septoplasty, ankle surgery History: Patient does not smoke Smoking Status: Never smoked Physical Exam: Vitals noted GENERAL: Well-appearing, in no acute distress, alert. HEENT: Eyes normal to inspection, normal pharynx, no signs of dehydration. NECK: Normal, supple. RESPIRATORY: Clear to auscultation bilaterally, no rales, rhonchi or wheezing. CVS: Regular rate and rhythm, no rubs, murmurs, or gallops. ABDOMEN: Soft, nontender, nondistended, no organomegaly. BACK: Normal to inspection, no CVA tenderness. SKIN: Patient has minimal area of redness around her left anterior chest in the left side of her neck. This is not warm to touch. It did not look cellulitic. There are no hives. EXTREMITIES: No pedal edema, no calf tenderness, no Homans sign or cords, no joint swelling. NEURO/PSYCH: Alert and oriented, normal mood and affect, normal motor sensory exam. Constitutional: Initial Vital Signs Temperature (C) 36.6 C 04/30/18 19:08 Heart Rate 79 04/30/18 19:08 Respiratory Rate 16 04/30/18 19:08 Blood Pressure 164/89 H 04/30/18 19:08 O2 Sat (%) 96 04/30/18 19:08 O2 Delivery Mode Room Air Allergies/Adverse Reactions: hydrocodone bitartrate [From Vicodin] Allergy (Intermediate, Verified 03/25/18 17:43) Vomiting metformin Allergy (Mild, Verified 03/25/18 17:43) Rash adhesive tape Allergy (Verified 03/25/18 17:43) Rash amoxicillin Allergy (Verified 03/25/18 17:43) Rash doxycycline Allergy (Verified 03/25/18 17:43) Milk Containing Products [dairy] Allergy (Verified 03/25/18 17:43) Dyspnea polyethylene glycol [From Golytely] Allergy (Verified 03/25/18 17:43) polyethylene glycol 3350 [From Golytely] Allergy (Verified 03/25/18 17:43) potassium chloride [From Golytely] Allergy (Verified 03/25/18 17:43) sodium [From Golytely] Allergy (Verified 03/25/18 17:43) sodium bicarbonate [From Golytely] Allergy (Verified 03/25/18 17:43) sodium chloride [From Golytely] Allergy (Verified 03/25/18 17:43) sodium sulfate [From Golytely] Allergy (Verified 03/25/18 17:43) sodium sulfate anhydrous [From Golytely] Allergy (Verified 03/25/18 17:43) golight Allergy (Intermediate, Uncoded 02/15/18 22:24) Vomiting other allergy Allergy (Uncoded 02/15/18 22:24) Home Medications: Medication Instructions Recorded ARIPiprazole [Abilify 10 mg (*)] 10 mg PO DAILY 11/16/12 Montelukast Sodium [Singulair 10 10 mg PO HS 11/16/12 mg (*)] OXcarbazepine [Trileptal 300mg (*)] 600 mg PO BID 11/16/12 LORazepam [Ativan (*)] 1 mg PO HS 11/22/13 Levalbuterol 0.63 mg [Xopenex 0.63 mg IH Q6 PRN #1 deyvial 11/23/13 0.63MG Neb (*)] Diclofenac Sodium [Voltaren 75 MG 75 mg PO BID 02/22/16 (*)] Cetirizine [ZyrTEC 10 mg (*)] 10 mg PO DAILY 05/18/16 LORazepam [Ativan (*)] 1 mg PO DAILY PRN 05/18/16 Ondansetron Odt [Zofran Odt 4 mg 4 mg PO Q4 PRN #12 tab 06/27/17 (*)] Acetaminophen [Tylenol ES 500 mg 500 mg PO BID PRN 07/09/17 (*)] Gabapentin [Neurontin 300 MG (*)] 300 mg PO HS 07/09/17 Oxycodone HCl [Oxyir] 5 mg PO BID 07/09/17 ZOLMitriptan [Zomig 2.5MG (*)] 2.5 mg PO PRN PRN 07/09/17 oxyCODONE IR [Oxycodone Ir (*)] 5 mg PO BID PRN 07/09/17 Topiramate [Topamax] 50 mg PO 01/13/18 Methylphenidate ER 02/15/18 Dicyclomine [Bentyl 20 MG (*)] 20 mg PO QID PRN #20 tab 02/20/18 Ondansetron Odt [Zofran Odt 4 mg 4 mg PO Q6 PRN #8 tab 02/20/18 (RX)] Famotidine [Pepcid 20 MG (*)] 20 mg PO BID #10 tab 04/30/18 Macrobid 04/30/18 Medical Decision Making ED Course/Re-evaluation: In the emergency department I discussed possible etiologies with the patient. I answered all her questions. Patient states she cannot take Benadryl. She did agree to take Pepcid. She was given Pepcid 20 mg orally. She was given a prescription for Pepcid. She will return with worsening symptoms. She was given warnings prior to leaving. Differential Diagnosis: My differential includes but is not limited to skin rash, allergic reaction, anaphylaxis, anxiety Departure - Departure Disposition: Home, Routine, Self-Care Clinical Impression: Allergic reaction Qualifiers: Encounter type: initial encounter Qualified Code(s): T78.40XA - Allergy, unspecified, initial encounter Condition: Good Instructions: General Allergic Reaction (ED) Additional Instructions: Return with increasing rash, shortness of breath, fever, vomiting or any other concerns. Referrals: NONE *PRIMARY CARE P,. [Primary Care Provider] - As per Instructions Anabel Burns MD [Medical Doctor] - 3-4 days, if not improved Prescriptions: Famotidine [Pepcid 20 MG (*)] 20 mg PO BID #10 tab
[2018-04-30] MEDS ORDERED: FAMOTIDINE 20 MG TAB PO ONE (19:31)
[2018-04-30 19:51] VITALS: BP 159/83
== END 2018-04-30 19:42 | disposition home or self-care (01) ==
DX: R21 Rash and other nonspecific skin eruption (principal); T78.40XA Allergy, unspecified, initial encounter; F31.9 Bipolar disorder, unspecified; Z79.899 Other long term (current) drug therapy

== ENCOUNTER 2018-05-18 03:54 | Emergency (ER) | payer OTHER | END 2018-05-18 05:03 | disposition home or self-care (01) ==

== ENCOUNTER 2018-05-23 13:48 | Emergency (ER) | payer OTHER ==
--- NOTE | 2018-05-23 14:34 | EDPHY ---
H & P Stated Complaint: dx bronchitis and sinus inf by pcp has had freq nosebleeds since Time Seen by Provider: 05/23/18 14:34 HPI/ROS: HPI: This is a 33-year-old female who presents with Chief Complaint: dx bronchitis and sinus inf by pcp has had freq nosebleeds since Location: Chest, nose Quality: Congestion Duration: 5 days Signs and Symptoms: no fever, no nausea, no vomiting, no diarrhea, no urinary symptoms, no chest pain, no shortness of breath, no wheezing, + productive cough , no sore throat, no neck stiffness, no joint pain, no swollen glands, no ear pain, no rash Timing: Acute, worse at night Severity: Moderate Context: Patient was diagnosed with bronchitis and sinus infection by primary care provider 3 days ago. She is on day 3 of 7 of cefdinir. Patient reports that over the last few days she has had 2-3 nose bleeds. He stopped with direct pressure. She reports that she coughs so hard that she vomits. Does not take any blood thinners. Patient is going to get a humidifier for her house today. Modifying Factors: See above Comment: ROS: A comprehensive 10 system review of systems is otherwise negative aside from elements mentioned in the history of present illness. MEDICAL/SURGICAL/SOCIAL HISTORY: Medical history: esophageal reflux, anxiety, bipolar , ADHD, PTSD, bladder control issues, migraines, Dx with regional complex pain syndrome, BENIGN FAMILIAL TREMOR. LMP 2-3 weeks ago. Surgical history: Cholecystectomy 2018, Arnol fundoplication, tubal ligation, septo plasty, turminate reduction, ANKLE SURG Social history: Family history noncontributory. CONSTITUTIONAL: Tearful, well-appearing adult white female, awake and alert, no obvious distress HEENT: Atraumatic and normocephalic, PERRL, EOMI. Nares patent; no epistaxis, yellowish rhinorrhea; mild nasal mucosal edema. Tympanic membranes clear. Oropharynx clear, no exudate and moist pink mucosa. Airway patent. No lymphadenopathy. No meningismus. Cardiovascular: Normal S1/S2, regular rate, regular rhythm, without murmur rub or gallop. PULMONARY/CHEST: Symmetrical and nontender. Clear to auscultation bilaterally. Good air movement. No accessory muscle usage. Dry cough noted. ABDOMEN: Soft, nondistended, nontender, no rebound, no guarding, no peritoneal signs, no masses or organomegaly. No CVAT. EXTREMITIES: 2/2 pulses, strength 5/5, no deformities, no clubbing, no cyanosis or edema. NEUROLOGICAL: no focal neuro deficits. GCS 15. SKIN: Warm and dry, no erythema. no rash. Good capillary refill. Source: Patient Exam Limitations: No limitations - Personal History LMP (Females 10-55): 22-28 Days Ago Current Tetanus Diphtheria and Acellular Pertussis (TDAP): Yes Tetanus Vaccine Date: 2017 - Medical/Surgical History Hx Asthma: Yes Hx Chronic Respiratory Disease: No Hx Diabetes: No Hx Cardiac Disease: No Hx Renal Disease: No Hx Cirrhosis: No Hx Alcoholism: No Hx HIV/AIDS: No Hx Splenectomy or Spleen Trauma: No Other PMH: esophageal reflux, anxiety, bipolar , ADHD, PTSD, bladder control issues, migraines. Dx with regional complex pain syndrome.,. Cholecystectomy 2018, arnol fundip, tubal ligation, septo plasty, turminate reduction, ANKLE SURG, BENIGN FAMILIAL TREMOR - Social History Smoking Status: Never smoked Constitutional: Initial Vital Signs Temperature (C) 36.5 C 05/23/18 14:02 Heart Rate 98 05/23/18 14:02 Respiratory Rate 18 05/23/18 14:02 Blood Pressure 149/96 H 05/23/18 14:02 O2 Sat (%) 94 05/23/18 14:02 O2 Delivery Mode Room Air Allergies/Adverse Reactions: hydrocodone bitartrate [From Vicodin] Allergy (Intermediate, Verified 05/23/18 13:58) Vomiting metformin Allergy (Mild, Verified 05/23/18 13:58) Rash adhesive tape Allergy (Verified 05/23/18 13:58) Rash amoxicillin Allergy (Verified 05/23/18 13:58) Rash doxycycline Allergy (Verified 05/23/18 13:58) Milk Containing Products [dairy] Allergy (Verified 05/23/18 13:58) Dyspnea polyethylene glycol [From Golytely] Allergy (Verified 05/23/18 13:58) polyethylene glycol 3350 [From Golytely] Allergy (Verified 05/23/18 13:58) potassium chloride [From Golytely] Allergy (Verified 05/23/18 13:58) sodium [From Golytely] Allergy (Verified 05/23/18 13:58) sodium bicarbonate [From Golytely] Allergy (Verified 05/23/18 13:58) sodium chloride [From Golytely] Allergy (Verified 05/23/18 13:58) sodium sulfate [From Golytely] Allergy (Verified 05/23/18 13:58) sodium sulfate anhydrous [From Golytely] Allergy (Verified 05/23/18 13:58) golight Allergy (Intermediate, Uncoded 02/15/18 22:24) Vomiting other allergy Allergy (Uncoded 02/15/18 22:24) Home Medications: Medication Instructions Recorded ARIPiprazole [Abilify 10 mg (*)] 10 mg PO DAILY 11/16/12 Montelukast Sodium [Singulair 10 10 mg PO HS 11/16/12 mg (*)] OXcarbazepine [Trileptal 300mg (*)] 600 mg PO BID 11/16/12 LORazepam [Ativan (*)] 1 mg PO HS 11/22/13 Levalbuterol 0.63 mg [Xopenex 0.63 mg IH Q6 PRN #1 deyvial 11/23/13 0.63MG Neb (*)] Diclofenac Sodium [Voltaren 75 MG 75 mg PO BID 02/22/16 (*)] Cetirizine [ZyrTEC 10 mg (*)] 10 mg PO DAILY 05/18/16 LORazepam [Ativan (*)] 1 mg PO DAILY PRN 05/18/16 Ondansetron Odt [Zofran Odt 4 mg 4 mg PO Q4 PRN #12 tab 06/27/17 (*)] Acetaminophen [Tylenol ES 500 mg 500 mg PO BID PRN 07/09/17 (*)] Gabapentin [Neurontin 300 MG (*)] 300 mg PO HS 07/09/17 Oxycodone HCl [Oxyir] 5 mg PO BID 07/09/17 ZOLMitriptan [Zomig 2.5MG (*)] 2.5 mg PO PRN PRN 07/09/17 oxyCODONE IR [Oxycodone Ir (*)] 5 mg PO BID PRN 07/09/17 Topiramate [Topamax] 50 mg PO 01/13/18 Methylphenidate ER 02/15/18 Dicyclomine [Bentyl 20 MG (*)] 20 mg PO QID PRN #20 tab 02/20/18 Ondansetron Odt [Zofran Odt 4 mg 4 mg PO Q6 PRN #8 tab 02/20/18 (RX)] Famotidine [Pepcid 20 MG (*)] 20 mg PO BID #10 tab 04/30/18 Macrobid 04/30/18 Tessalon Pearles 05/18/18 Albuterol Sulfate [Proair Hfa] 1 - 2 puffs IH Q4 PRN #1 hfa.aer.ad 05/23/18 Benzonatate [Tessalon Pearles (RX)] 100 mg PO Q6 PRN #15 cap 05/23/18 Cefdinir 05/23/18 Medical Decision Making ED Course/Re-evaluation: Vital signs reviewed and stable upon arrival. No systemic signs. Laboratory studies ordered and reviewed and grossly unremarkable. Lung exam is benign. Do not believe chest x-ray imaging is needed. No epistaxis appreciated. Given GI cocktail, promethazine 25 mg and Decadron 10 mg Advised continue antibiotics, given a prescription for albuterol inhaler and Tessalon Perles No signs of meningitis, strep pharyngitis, tonsillar abscess, sepsis This patient was seen under the supervision of my primary supervising physician. I evaluated care for this patient independently. Differential Diagnosis: Differential diagnosis includes but is limited to coagulopathy sepsis, pneumonia , bronchitis, sinusitis. - Data Points Laboratory Results: Laboratory Results 05/23/18 14:50 05/23/18 14:50 05/23/18 05/23/18 05/23/18 14:50 14:50 14:50 WBC RBC Hgb Hct MCV MCH MCHC RDW Plt Count MPV Neut % (Auto) Lymph % (Auto) [place] % (Auto) Eos % (Auto) Baso % (Auto) Nucleat RBC Rel Count Absolute Neuts (auto) Absolute Lymphs (auto) Absolute Monos (auto) Absolute Eos (auto) Absolute Basos (auto) Absolute Nucleated RBC Immature Gran % Immature Gran # PT 12.8 SEC SEC (12.0-15.0) INR 1.00 (0.83-1.16) APTT 32.6 SEC SEC (23.0-38.0) Sodium 134 mEq/L L mEq/L (135-145) Potassium 3.6 mEq/L mEq/L (3.5-5.2) Chloride 99 mEq/L mEq/L (97-110) Carbon Dioxide 25 mEq/l mEq/l (22-31) Anion Gap 10 mEq/L mEq/L (6-14) BUN 8 mg/dL mg/dL (7-23) Creatinine 0.7 mg/dL mg/dL (0.6-1.0) Estimated GFR > 60 Glucose 151 mg/dL H mg/dL (70-100) Calcium 8.9 mg/dL mg/dL (8.5-10.4) Total Bilirubin 0.4 mg/dL mg/dL (0.1-1.4) Conjugated Bilirubin 0.4 mg/dL mg/dL (0.0-0.5) Unconjugated Bilirubin 0.0 mg/dL mg/dL (0.0-1.1) AST 45 IU/L IU/L (14-46) ALT 77 IU/L H IU/L (9-52) Alkaline Phosphatase 71 IU/L IU/L (38-126) Total Protein 6.8 g/dL g/dL (6.3-8.2) Albumin 3.9 g/dL g/dL (3.5-5.0) Lipase 100 IU/L IU/L (23-300) Beta HCG, Qual NEGATIVE 05/23/18 14:50 WBC 8.94 10^3/uL 10^3/uL (3.80-9.50) RBC 4.74 10^6/uL 10^6/uL (4.18-5.33) Hgb 15.1 g/dL g/dL (12.6-16.3) Hct 43.1 % % (38.0-47.0) MCV 90.9 fL fL (81.5-99.8) MCH 31.9 pg pg (27.9-34.1) MCHC 35.0 g/dL g/dL (32.4-36.7) RDW 12.1 % % (11.5-15.2) Plt Count 227 10^3/uL 10^3/uL (150-400) MPV 9.0 fL fL (8.7-11.7) Neut % (Auto) 72.9 % % (39.3-74.2) Lymph % (Auto) 22.6 % % (15.0-45.0) [place] % (Auto) 3.8 % L % (4.5-13.0) Eos % (Auto) 0.1 % L % (0.6-7.6) Baso % (Auto) 0.2 % L % (0.3-1.7) Nucleat RBC Rel Count 0.0 % % (0.0-0.2) Absolute Neuts (auto) 6.51 10^3/uL H 10^3/uL (1.70-6.50) Absolute Lymphs (auto) 2.02 10^3/uL 10^3/uL (1.00-3.00) Absolute Monos (auto) 0.34 10^3/uL 10^3/uL (0.30-0.80) Absolute Eos (auto) 0.01 10^3/uL L 10^3/uL (0.03-0.40) Absolute Basos (auto) 0.02 10^3/uL 10^3/uL (0.02-0.10) Absolute Nucleated RBC 0.00 10^3/uL 10^3/uL (0-0.01) Immature Gran % 0.4 % % (0.0-1.1) Immature Gran # 0.04 10^3/uL 10^3/uL (0.00-0.10) PT INR APTT Sodium Potassium Chloride Carbon Dioxide Anion Gap BUN Creatinine Estimated GFR Glucose Calcium Total Bilirubin Conjugated Bilirubin Unconjugated Bilirubin AST ALT Alkaline Phosphatase Total Protein Albumin Lipase Beta HCG, Qual Medications Given: Discontinued Medications Al Hydroxide/Mg Hydroxide (Maalox Susp) 30 ml PO ONCE ONE Stop: 05/23/18 14:43 Last Admin: 05/23/18 14:55 Dose: 30 ml Dexamethasone (Decadron) 10 mg PO EDNOW ONE Stop: 05/23/18 14:44 Last Admin: 05/23/18 14:54 Dose: 10 mg Hyoscyamine Sulfate (Levsin, Hyomax-Sl) 0.25 mg PO ONCE ONE Stop: 05/23/18 14:43 Last Admin: 05/23/18 14:54 Dose: 0.25 mg Lidocaine (Lidocaine 2% Viscous) 15 ml PO ONCE ONE Stop: 05/23/18 14:43 Last Admin: 03/08/19 14:55 Dose: 15 ml Promethazine HCl (Phenergan) 25 mg PO EDNOW ONE Stop: 05/23/18 14:44 Last Admin: 05/23/18 14:53 Dose: 25 mg Departure - Departure Disposition: Home, Routine, Self-Care Clinical Impression: Bronchitis, History of epistaxis Sinusitis Qualifiers: Sinusitis location: unspecified location Chronicity: acute Recurrence: non- recurrent Qualified Code(s): J01.90 - Acute sinusitis, unspecified Condition: Good Instructions: Sinusitis (ED), Acute Bronchitis (ED), Nosebleed (ED) Additional Instructions: Rest as much as possible until you are feeling better. Consume a minimum of 8-10 glasses of water or electrolyte fluid replacement drinks that include Gatorade, Powerade, Pedialyte. Use a humidifier in your home. Use [id number] nasal saline spray or Vaseline in your nostrils to prevent nasal dryness. Take antibiotic as directed until complete. Do not skip a dose. Use albuterol inhaler every 4-6 hours as needed for shortness of breath, wheezing. Take Tessalon Perles every 6 hr as needed for cough. Follow-up with primary care provider in the next 3 days if you are not improving. Referrals: Melba Bains MD [Primary Care Provider] - As per Instructions Stand Alone Forms: Work Excuse Prescriptions: Albuterol Sulfate [Proair Hfa] 1 - 2 puffs IH Q4 PRN #1 hfa.aer.ad PRN Reason: Short Of Breath/Dyspnea Benzonatate [Tessalon Pearles (RX)] 100 mg PO Q6 PRN #15 cap PRN Reason: Cough, Moderate
[2018-05-23] MEDS ORDERED: LIDOCAINE 2% VISCOUS 15 ML UDCUP PO ONE (14:42)
[2018-05-23] MEDS ORDERED: MAG HYDROX/AL HYDROX/SIMETH 30 ML UDCUP PO ONE (14:42)
[2018-05-23] MEDS ORDERED: HYOSCYAMINE SULFATE 0.125 MG TAB PO ONE (14:42)
[2018-05-23] MEDS ORDERED: PROMETHAZINE HCL 25 MG TAB PO ONE (14:43)
[2018-05-23] MEDS ORDERED: DEXAMETHASONE 4 MG TAB PO ONE (14:43)
[2018-05-23 15:04] LABS: PLATELET COUNT 227 10^3/uL (150-400)
[2018-05-23 15:19] LABS: PROTIME(PATIENT) 12.8 SEC (12.0-15.0)
[2018-05-23 16:06] VITALS: BP 118/91
== END 2018-05-23 16:04 | disposition home or self-care (01) ==
DX: J40 Bronchitis, not specified as acute or chronic (principal); J01.90 Acute sinusitis, unspecified; R04.0 Epistaxis

== ENCOUNTER 2018-06-17 20:08 | Emergency (ER) | payer OTHER ==
--- NOTE | 2018-06-17 20:27 | EDPHY ---
H & P Time Seen by Provider: 06/17/18 20:26 HPI/ROS: Chief complaint. Reaction allergy shot HPI. 33-year-old female presents with concern about allergic reaction after receiving an allergy shot today about 3:00 p.m.. She got the shot and got lightheaded briefly. That resolved. She went home she felt she had a asthma flare up. She knows her lips were tingling. She does not have a rash. Does not have throat tightening. No shortness of breath. She has not taken any treatment yet. She tells me she can't take Benadryl secondary to her psychiatric medication ROS 10 systems were reviewed and negative with the exception of the elements mentioned in the history of present illness Past Medical/Surgical History: Esophageal reflex, anxiety, both bipolar, attention deficit hyperactivity disorder, PTSD, migraines, regional complex pain syndrome, cholecystectomy, Arnol fundoplication Social History: Single, nonsmoker, no alcohol Smoking Status: Never smoked Physical Exam: General Appearance: Alert pleasant well-developed female mild distress vital signs are stable Eyes: Pupils equal and round no pallor or injection. ENT, oropharynx without obvious injection or swelling. No stridor. Speaking in full sentences Respiratory: There are no retractions, lungs are clear to auscultation. No wheezing Cardiovascular: Regular rate and rhythm. Gastrointestinal: Abdomen is soft and nontender, no masses, bowel sounds normal. Neurological: Awake and alert, sensory and motor exams grossly normal. Skin: Warm and dry, no rashes. Musculoskeletal: Neck is supple nontender. Extremities symmetrical, full range of motion. Psychiatric: Patient is oriented X 3, there is no agitation. Constitutional: Initial Vital Signs Temperature (C) 36.3 C 06/17/18 20:11 Heart Rate 93 06/17/18 20:11 Respiratory Rate 18 06/17/18 20:11 Blood Pressure 130/91 H 06/17/18 20:11 O2 Sat (%) 97 06/17/18 20:11 O2 Delivery Mode Room Air Allergies/Adverse Reactions: hydrocodone bitartrate [From Vicodin] Allergy (Intermediate, Verified 06/17/18 20:14) Vomiting metformin Allergy (Mild, Verified 06/17/18 20:14) Rash adhesive tape Allergy (Verified 06/17/18 20:14) Rash amoxicillin Allergy (Verified 06/17/18 20:14) Rash doxycycline Allergy (Verified 06/17/18 20:14) Milk Containing Products [dairy] Allergy (Verified 06/17/18 20:14) Dyspnea polyethylene glycol [From Golytely] Allergy (Verified 06/17/18 20:14) polyethylene glycol 3350 [From Golytely] Allergy (Verified 06/17/18 20:14) potassium chloride [From Golytely] Allergy (Verified 06/17/18 20:14) sodium [From Golytely] Allergy (Verified 06/17/18 20:14) sodium bicarbonate [From Golytely] Allergy (Verified 06/17/18 20:14) sodium chloride [From Golytely] Allergy (Verified 06/17/18 20:14) sodium sulfate [From Golytely] Allergy (Verified 06/17/18 20:14) sodium sulfate anhydrous [From Golytely] Allergy (Verified 06/17/18 20:14) golight Allergy (Intermediate, Uncoded 02/15/18 22:24) Vomiting other allergy Allergy (Uncoded 02/15/18 22:24) Home Medications: Medication Instructions Recorded Abilify 06/17/18 Diclofenac Sodium 06/17/18 Gabapentin 06/17/18 Lorazepam 06/17/18 Oxycodone HCl 06/17/18 Singulair 06/17/18 Topamax 06/17/18 Trileptal 06/17/18 ZYRTEC 06/17/18 Zomig 06/17/18 Medical Decision Making ED Course/Re-evaluation: Pepcid orally Observation recheck at 9:15 p.m.. Patient is stable. No progression of symptoms. The tingling is improved. She feels well to go home. Differential Diagnosis: Mild allergic reaction with tingling of lips and no other symptoms. No evidence for anaphylaxis - Data Points Medications Given: Discontinued Medications Famotidine (Pepcid) 40 mg PO EDNOW ONE Stop: 06/17/18 20:35 Last Admin: 06/17/18 20:48 Dose: 40 mg Departure - Departure Disposition: Home, Routine, Self-Care Clinical Impression: Allergic reaction Condition: Good Instructions: General Allergic Reaction (ED) Additional Instructions: Continue regular medications Return for worsening difficulty swallowing or breathing Recheck in 1 day for any continuing symptoms Referrals: Melba Bains MD [Primary Care Provider] - 1 day, if not improved
[2018-06-17] MEDS ORDERED: FAMOTIDINE 20 MG TAB PO ONE (20:34)
[2018-06-17 21:38] VITALS: BP 128/90
== END 2018-06-17 21:38 | disposition home or self-care (01) ==
DX: J45.901 Unspecified asthma with (acute) exacerbation (principal); T78.40XA Allergy, unspecified, initial encounter

== ENCOUNTER 2018-07-05 17:31 | Emergency (ER) | payer OTHER ==
--- NOTE | 2018-07-05 18:05 | EDPHY ---
H & P Time Seen by Provider: 07/05/18 17:49 HPI/ROS: CHIEF COMPLAINT: Shortness of breath HISTORY OF PRESENT ILLNESS: 33-year-old woman presents with symptoms since 4: 30 p.m. Today. She has had a gastrointestinal illness for last couple of weeks with nausea vomiting diarrhea which stopped yesterday. This afternoon she when out to get some of the each felt weird and a little bit "stumbling" than 4:30 p.m. she started getting shortness of breath. Associated with a high heart rate feeling like a "can't seem to catch my breath."She says it is worse supine and better standing, worse with exertion. Not associated with chest pain or cough or hemoptysis or leg swelling or fever or chills. REVIEW OF SYSTEMS: Eye: no change in vision ENT: no sore throat Cardiac: HPI Pulmonary: HPI Abdomen: HPI no abdominal pain now. Musculoskeletal: no back pain or leg swelling Skin: no rash Neuro: no headache Constitutional: no fever : no urinary symptoms A comprehensive 10 point review of systems is otherwise negative aside from elements mentioned in the history of present illness. PAST MEDICAL HISTORY: Includes reflux, bipolar disease, migraines, cholecystectomy. Family history: Negative for premature coronary disease or venous thromboembolism. Social history: Nonsmoker, no recent travel or immobilization General Appearance: Alert and conversant, cooperative. Eyes: No scleral icterus. ENT, Mouth: Normal mucous membranes. No angioedema. Respiratory: Normal respiratory effort, breath sounds equal, lungs are clear to auscultation. No wheezing. Cardiovascular: Regular rate and rhythm. No murmur. Gastrointestinal: Abdomen is soft and non tender. Neurological: Alert, face symmetric, normal motor and sensory in extremities. Skin: Warm and dry, no rashes. Musculoskeletal: No peripheral edema. No calf tenderness. Psychiatric: Not agitated. Emergency Department course/MDM: Able to speak in full sentences. She feels like it is not her asthma and I do not hear wheezing. Plan for EKG and troponin, chest x-ray and D-dimer. Saturation noted to be normal. 1903: Labs reviewed including not anemic, EKG and troponin normal, D-dimer less than 0.5 with low pretest probability for pulmonary embolism. I think ACS , cardiomyopathy, acidosis, all unlikely. Results discussed with the patient, I think she is stable for discharge. She does not have extra work of breathing apparent on observation. Smoking Status: Never smoked Constitutional: Initial Vital Signs Temperature (C) 36.8 C 07/05/18 17:33 Heart Rate 80 07/05/18 17:33 Respiratory Rate 16 07/05/18 17:33 Blood Pressure 124/92 H 07/05/18 17:33 O2 Sat (%) 94 07/05/18 17:33 O2 Delivery Mode Room Air Allergies/Adverse Reactions: hydrocodone bitartrate [From Vicodin] Allergy (Intermediate, Verified 06/17/18 20:14) Vomiting metformin Allergy (Mild, Verified 06/17/18 20:14) Rash adhesive tape Allergy (Verified 06/17/18 20:14) Rash amoxicillin Allergy (Verified 06/17/18 20:14) Rash doxycycline Allergy (Verified 06/17/18 20:14) Milk Containing Products [dairy] Allergy (Verified 06/17/18 20:14) Dyspnea polyethylene glycol [From Golytely] Allergy (Verified 06/17/18 20:14) polyethylene glycol 3350 [From Golytely] Allergy (Verified 06/17/18 20:14) potassium chloride [From Golytely] Allergy (Verified 06/17/18 20:14) sodium [From Golytely] Allergy (Verified 06/17/18 20:14) sodium bicarbonate [From Golytely] Allergy (Verified 06/17/18 20:14) sodium chloride [From Golytely] Allergy (Verified 06/17/18 20:14) sodium sulfate [From Golytely] Allergy (Verified 06/17/18 20:14) sodium sulfate anhydrous [From Golytely] Allergy (Verified 06/17/18 20:14) golight Allergy (Intermediate, Uncoded 02/15/18 22:24) Vomiting other allergy Allergy (Uncoded 02/15/18 22:24) Home Medications: Medication Instructions Recorded Abilify 06/17/18 Diclofenac Sodium 06/17/18 Gabapentin 06/17/18 Lorazepam 06/17/18 Oxycodone HCl 06/17/18 Singulair 06/17/18 Topamax 06/17/18 Trileptal 06/17/18 ZYRTEC 06/17/18 Zomig 06/17/18 Medical Decision Making - Diagnostics EKG Interpretation: 12-lead EKG interpreted by me; official reading is in computer system. My interpretation is sinus rhythm rate 65 with nonspecific T-wave flattening but no acute ischemic changes. Imaging Results: Imaging Impressions Chest X-Ray 07/05/18 18:01 Impression: Mild airways disease/bronchitis. No acute process since 6 weeks prior. Imaging: I viewed and interpreted images myself Differential Diagnosis: Differential diagnosis considered for shortness of breath including but not limited to pulmonary infectious process, COPD, asthma, pulmonary embolus and congestive heart failure. - Data Points Laboratory Results: Laboratory Results 07/05/18 18:10 07/05/18 18:10 07/05/18 07/05/18 07/05/18 18:16 18:10 18:10 WBC RBC Hgb Hct MCV MCH MCHC RDW Plt Count MPV Neut % (Auto) Lymph % (Auto) Nicholas % (Auto) Eos % (Auto) Baso % (Auto) Nucleat RBC Rel Count Absolute Neuts (auto) Absolute Lymphs (auto) Absolute Monos (auto) Absolute Eos (auto) Absolute Basos (auto) Absolute Nucleated RBC Immature Gran % Immature Gran # D-Dimer 0.32 ug/mLFEU ug/mLFEU (0.00-0.50) Sodium 136 mEq/L mEq/L (135-145) Potassium 4.4 mEq/L mEq/L (3.5-5.2) Chloride 102 mEq/L mEq/L (97-110) Carbon Dioxide 24 mEq/l mEq/l (22-31) Anion Gap 10 mEq/L mEq/L (6-14) BUN 11 mg/dL mg/dL (7-23) Creatinine 0.9 mg/dL mg/dL (0.6-1.0) Estimated GFR > 60 Glucose 104 mg/dL H mg/dL (70-100) Calcium 9.6 mg/dL mg/dL (8.5-10.4) POC Troponin I 0.00 ng/mL ng/mL (0.00-0.08) 07/05/18 18:10 WBC 10.08 10^3/uL H 10^3/uL (3.80-9.50) RBC 4.63 10^6/uL 10^6/uL (4.18-5.33) Hgb 15.1 g/dL g/dL (12.6-16.3) Hct 43.8 % % (38.0-47.0) MCV 94.6 fL fL (81.5-99.8) MCH 32.6 pg pg (27.9-34.1) MCHC 34.5 g/dL g/dL (32.4-36.7) RDW 12.6 % % (11.5-15.2) Plt Count 249 10^3/uL 10^3/uL (150-400) MPV 9.1 fL fL (8.7-11.7) Neut % (Auto) 70.6 % % (39.3-74.2) Lymph % (Auto) 24.1 % % (15.0-45.0) Nicholas % (Auto) 4.5 % % (4.5-13.0) Eos % (Auto) 0.2 % L % (0.6-7.6) Baso % (Auto) 0.3 % % (0.3-1.7) Nucleat RBC Rel Count 0.0 % % (0.0-0.2) Absolute Neuts (auto) 7.12 10^3/uL H 10^3/uL (1.70-6.50) Absolute Lymphs (auto) 2.43 10^3/uL 10^3/uL (1.00-3.00) Absolute Monos (auto) 0.45 10^3/uL 10^3/uL (0.30-0.80) Absolute Eos (auto) 0.02 10^3/uL L 10^3/uL (0.03-0.40) Absolute Basos (auto) 0.03 10^3/uL 10^3/uL (0.02-0.10) Absolute Nucleated RBC 0.00 10^3/uL 10^3/uL (0-0.01) Immature Gran % 0.3 % % (0.0-1.1) Immature Gran # 0.03 10^3/uL 10^3/uL (0.00-0.10) D-Dimer Sodium Potassium Chloride Carbon Dioxide Anion Gap BUN Creatinine Estimated GFR Glucose Calcium POC Troponin I Point of Care Test Results: Chemistry 07/05/18 18:16 POC Troponin I 0.00 ng/mL ng/mL (0.00-0.08) Departure - Departure Disposition: Home, Routine, Self-Care Clinical Impression: Dyspnea Qualifiers: Dyspnea type: unspecified Qualified Code(s): R06.00 - Dyspnea, unspecified Condition: Good Instructions: Dyspnea (ED) Additional Instructions: Your blood test showed a normal troponin and D-dimer, no evidence of heart attack or blood clot. Chest x-ray was unchanged from previous. No evidence for anemia. Referrals: Melba Bains MD [Primary Care Provider] - As per Instructions
--- NOTE | 2018-07-05 18:13 | CPEKG ---
Test Reason : OPEN Blood Pressure : / mmHG Vent. Rate : 065 BPM Atrial Rate : 000 BPM P-R Int : 138 ms QRS Dur : 090 ms QT Int : 406 ms P-R-T Axes : -22 004 021 degrees QTc Int : 423 ms Sinus rhythm Low voltage, precordial leads Borderline T abnormalities, anterior leads Confirmed by Umang Lacy ([id number]) on 07/05/2018 6:12:35 PM Referred By: UMANG LACY Confirmed By:Umang Lacy
[2018-07-05 18:24] LABS: PLATELET COUNT 249 10^3/uL (150-400)
[2018-07-05 19:26] VITALS: BP 124/85
== END 2018-07-05 19:26 | disposition home or self-care (01) ==
DX: R06.00 Dyspnea, unspecified (principal)
CPT/HCPCS: 84484-ER

== ENCOUNTER → 2018-07-09 | Outpatient (CLI) | payer OTHER | LOC: BMCIMAGING 16:15 | PROVIDERS: ATTEND Family Medicine | DX: S99.912A Unspecified injury of left ankle, initial encounter (principal) ==

== ENCOUNTER 2018-07-15 20:44 | Emergency (ER) | payer OTHER ==
[2018-07-15] MEDS ORDERED: FLUORESCEIN SODIUM 1 MG STRIP OP ONE (21:29)
[2018-07-15] MEDS ORDERED: PROPARACAINE 0.5% 15 ML OPHT DROP OP ONE (21:29)
[2018-07-15] MEDS ORDERED: OFLOXACIN 0.3% SOLN PREPACK OPHT.BTL TAKEHOME ONE (21:57)
--- NOTE | 2018-07-15 21:59 | EDPHY ---
H & P Time Seen by Provider: 07/15/18 20:58 HPI/ROS: CHIEF COMPLAINT: Right eye pain HISTORY OF PRESENT ILLNESS: 33-year-old female via private vehicle complaining of right eye irritation and photophobia since this afternoon after rubbing her eye. No exposure to high speed projectiles. No pain with extraocular movements. No headache. No nausea no vomiting. PHYSICAL EXAM (Prior to examination, patient consented to physical exam, hands were washed and my usual and customary physical exam procedures followed) 1) GENERAL: Well-developed, well-nourished, alert and oriented. Appears to be in no acute distress. 2) HEAD: Normocephalic 3) HEENT: sclera anicteric 4) LUNGS: Breathing comfortably. [5) OCULAR EXAM: Visual Acuity: noted from Nurse's notes. Pupils:equal round and reactive to light EOMI Lids: no edema or swelling, upper and lower lids were everted and no foreign bodies were visualized, no areas of increased fluorescein uptake. Skin: no proptosis, no periorbital erythema or swelling, no vesicles, no pain with extraocular movements. No periorbital or facial erythema, induration, ecchymosis, vesicles. Conjunctivae: not injected, no discharge, negative Sammy test. Cornea: exam with fluorescein shows in area of increased uptake on the right eye , positive skating rink sign in a vertical orientation. Anterior chamber:normal, no hyphema or hypopyon. Right eye tonometry 15, left eye 14 Smoking Status: Never smoked Constitutional: Initial Vital Signs Temperature (C) 36.7 C 07/15/18 20:45 Heart Rate 76 07/15/18 20:45 Respiratory Rate 16 07/15/18 20:45 Blood Pressure 126/86 H 07/15/18 20:45 O2 Sat (%) 96 07/15/18 20:45 O2 Delivery Mode Room Air Allergies/Adverse Reactions: hydrocodone bitartrate [From Vicodin] Allergy (Intermediate, Verified 07/15/18 20:45) Vomiting metformin Allergy (Mild, Verified 07/15/18 20:45) Rash adhesive tape Allergy (Verified 07/15/18 20:45) Rash amoxicillin Allergy (Verified 07/15/18 20:45) Rash doxycycline Allergy (Verified 07/15/18 20:45) Milk Containing Products [dairy] Allergy (Verified 07/15/18 20:45) Dyspnea polyethylene glycol [From Golytely] Allergy (Verified 07/15/18 20:45) polyethylene glycol 3350 [From Golytely] Allergy (Verified 07/15/18 20:45) potassium chloride [From Golytely] Allergy (Verified 07/15/18 20:45) sodium [From Golytely] Allergy (Verified 07/15/18 20:45) sodium bicarbonate [From Golytely] Allergy (Verified 07/15/18 20:45) sodium chloride [From Golytely] Allergy (Verified 07/15/18 20:45) sodium sulfate [From Golytely] Allergy (Verified 07/15/18 20:45) sodium sulfate anhydrous [From Golytely] Allergy (Verified 07/15/18 20:45) golight Allergy (Intermediate, Uncoded 07/15/18 20:45) Vomiting other allergy Allergy (Uncoded 07/15/18 20:45) Home Medications: Medication Instructions Recorded Abilify 06/17/18 Diclofenac Sodium 06/17/18 Gabapentin 06/17/18 Lorazepam 06/17/18 Oxycodone HCl 06/17/18 Singulair 06/17/18 Topamax 06/17/18 Trileptal 06/17/18 ZYRTEC 06/17/18 Zomig 06/17/18 MDM/Departure - MDM Medications Given: Discontinued Medications Fluorescein Sodium (Bioglo) 2 mg OP EDNOW ONE Stop: 07/15/18 21:30 Last Admin: 07/15/18 21:33 Dose: 2 mg Ofloxacin (Ocuflox 0.3% Opht Drops Prepack) 1 btl TAKEHOME EDNOW ONE Stop: 07/15/18 21:58 Last Admin: 07/15/18 22:02 Dose: 1 btl Proparacaine HCl (Alcaine 0.5%) 1 drops OP EDNOW ONE Stop: 07/15/18 21:30 Last Admin: 07/15/18 21:31 Dose: 1 drops ED Course/Re-evaluation: Patient was re-evaluated with serial examinations. On exam she is noted to have a right corneal abrasion with no visible foreign body on eversion of the upper and lower eyelids. She noted difficulty performing right eye visual acuity and started crying when the nursing staff performed her visual acuity. I performed visual acuity myself on the patient and she is noted to have right eye vision of 20/25 with correction. Doubt acute closed angle glaucoma the presence of bilateral pressures within normal limits, see physical exam note. Doubt periorbital or orbital cellulitis. Doubt retinal detachment. Will initiate topical antibiotic therapy. 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 Recommend she keep this appointment. She feels comfortable being discharged. Care of patient under supervision of secondary supervising physician Dr Jacobs . - Depart Disposition: Home, Routine, Self-Care Clinical Impression: Right corneal abrasion Qualifiers: Encounter type: initial encounter Qualified Code(s): S05.01XA - Injury of conjunctiva and corneal abrasion without foreign body, right eye, initial encounter Condition: Good Instructions: Ofloxacin (Into the eye), Corneal Abrasion (ED) Additional Instructions: Return to the ER if you develop new or worsening symptoms, if you develop change in vision or any other symptoms that concern you. Referrals: Ronnie Felix MD [Medical Doctor] - 1 day without fail
[2018-07-15 22:00] VITALS: BP 130/79
== END 2018-07-15 22:09 | disposition home or self-care (01) ==
DX: S05.01XA Injury of conjunctiva and corneal abrasion without foreign body, right eye, initial encounter (principal); X58.XXXA Exposure to other specified factors, initial encounter

== ENCOUNTER → 2018-07-16 | Outpatient (CLI) | payer OTHER | LOC: FIMAGING 05:06 | PROVIDERS: ATTEND Podiatrist Foot & Ankle Surgery | DX: S86.302A Unspecified injury of muscle(s) and tendon(s) of peroneal muscle group at lower leg level, left leg, initial encounter (principal); S93.492A Sprain of other ligament of left ankle, initial encounter; S93.412A Sprain of calcaneofibular ligament of left ankle, initial encounter; Z98.890 Other specified postprocedural states ==

== ENCOUNTER 2018-07-27 12:51 | Emergency (ER) | payer OTHER ==
--- NOTE | 2018-07-27 13:41 | EDPHY ---
H & P Time Seen by Provider: 07/27/18 13:22 HPI/ROS: Chief complaint: Persistent ear infection History of present illness: This is a 33-year-old female who presents to the emergency department for a persistent ear infection. She developed an ear infection approximately a week ago. She states her right ear is affected although they were concerned her left ear was infected. She was initially seen by [facility] and placed on a Z-Jorge. She apparently did not respond to this and was switched to doxycycline by Dr. Bains. She reports pain persists. She has associated pressure. No fevers. No headache or neck pain. No tinnitus or hearing loss. No dizziness or vertigo. Smoking Status: Never smoked Physical Exam: General Appearance: Alert, nontoxic. Eyes: Pupils equal and round no injection. ENT: Tympanic membranes with some fluid behind them bilaterally, external auditory canals, external ears and surrounding soft tissue including over the mastoids are unremarkable. Nasopharynx is not injected. There is no rhinorrhea. Oropharynx is not injected. There is no edema. There is no exudate. There is no asymmetry. The uvula is midline. No elevation of the tongue. There is no hoarseness, no drooling, no trismus, no stridor. Respiratory: Chest is non tender, lungs are clear to auscultation. Cardiac: regular rate and rhythm Musculoskeletal: Neck is supple and non tender. Extremities have full range of motion and are non tender. Skin: No rashes or lesions. Constitutional: Initial Vital Signs Temperature (C) 36.7 C 07/27/18 12:54 Heart Rate 84 07/27/18 12:54 Respiratory Rate 17 07/27/18 12:54 Blood Pressure 148/91 H 07/27/18 12:54 O2 Sat (%) 94 07/27/18 12:54 O2 Delivery Mode Room Air Allergies/Adverse Reactions: hydrocodone bitartrate [From Vicodin] Allergy (Intermediate, Verified 07/27/18 12:52) Vomiting metformin Allergy (Mild, Verified 07/27/18 12:52) Rash adhesive tape Allergy (Verified 07/27/18 12:52) Rash amoxicillin Allergy (Verified 07/27/18 12:52) Rash doxycycline Allergy (Verified 07/27/18 12:52) Milk Containing Products [dairy] Allergy (Verified 07/27/18 12:52) Dyspnea polyethylene glycol [From Golytely] Allergy (Verified 07/27/18 12:52) polyethylene glycol 3350 [From Golytely] Allergy (Verified 07/27/18 12:52) potassium chloride [From Golytely] Allergy (Verified 07/27/18 12:52) sodium [From Golytely] Allergy (Verified 07/27/18 12:52) sodium bicarbonate [From Golytely] Allergy (Verified 07/27/18 12:52) sodium chloride [From Golytely] Allergy (Verified 07/27/18 12:52) sodium sulfate [From Golytely] Allergy (Verified 07/27/18 12:52) sodium sulfate anhydrous [From Golytely] Allergy (Verified 07/27/18 12:52) golight Allergy (Intermediate, Uncoded 07/15/18 20:45) Vomiting other allergy Allergy (Uncoded 07/15/18 20:45) Home Medications: Medication Instructions Recorded Abilify 06/17/18 Diclofenac Sodium 06/17/18 Gabapentin 06/17/18 Lorazepam 06/17/18 Oxycodone HCl 06/17/18 Singulair 06/17/18 Topamax 06/17/18 Trileptal 06/17/18 ZYRTEC 06/17/18 Zomig 06/17/18 Doxycycline Calcium 07/27/18 predniSONE 20 mg PO DAILY 3 Days tab 07/27/18 MDM/Departure - [place] ED Course/Re-evaluation: Patient seen under the supervision of my secondary supervising physician Dr. Chirag Cowart. Patient presents for persistent ear pain after being diagnosed with an ear infection. She is currently on doxycycline. Her physical examination shows some fluid behind the ear but not overt signs of infection. She is to continue doxycycline. I will provide her with a short burst of prednisone to help relieve pressure. She has been on prednisone before and has tolerated it well. She is to follow up with an ENT doctor this week. She has seen Dr. Jordan in the past and she is asked to see him this week. Strict return precautions are given. Differential Diagnosis: Included but not limited to otitis media, otitis externa, ruptured tympanic membrane, doubtful mastoiditis - Depart Disposition: Home, Routine, Self-Care Clinical Impression: Ear infection Condition: Good Instructions: Ear Infection (ED) Additional Instructions: Follow-up with your ENT doctor this week for continued evaluation and care Continue to take antibiotics as prescribed until finished If symptoms worsen or new symptoms develop return to the emergency department for recheck Prescriptions: predniSONE 20 mg PO DAILY 3 Days tab Referrals: Melba Bains MD [Primary Care Provider] - As per Instructions Stuart Jordan MD [Medical Doctor] - As per Instructions
[2018-07-27 14:09] VITALS: BP 129/82
== END 2018-07-27 14:09 | disposition home or self-care (01) ==
DX: H66.91 Otitis media, unspecified, right ear (principal); Z79.899 Other long term (current) drug therapy

== ENCOUNTER → 2018-08-02 | Outpatient (CLI) | payer OTHER | LOC: FIMAGING 08:35 | PROVIDERS: ATTEND Otolaryngology | DX: J34.1 Cyst and mucocele of nose and nasal sinus (principal); J34.2 Deviated nasal septum; Z87.09 Personal history of other diseases of the respiratory system ==

== ENCOUNTER → 2018-08-06 | Outpatient (CLI) | payer OTHER | LOC: BMCIMAGING 15:44 | PROVIDERS: ATTEND Physician Assistant | DX: M17.11 Unilateral primary osteoarthritis, right knee (principal) ==

== ENCOUNTER 2018-08-19 14:09 | Emergency (ER) | payer OTHER | END 2018-08-19 18:18 | disposition home or self-care (01) ==

== ENCOUNTER 2018-08-23 12:15 | Emergency (ER) | payer OTHER | END 2018-08-23 15:56 | disposition home or self-care (01) ==

== ENCOUNTER 2018-08-30 17:48 | Emergency (ER) | payer OTHER | END 2018-08-30 20:48 | disposition home or self-care (01) ==

== ENCOUNTER 2018-09-02 17:59 | Emergency (ER) | payer OTHER | END 2018-09-02 19:48 | disposition home or self-care (01) ==

== ENCOUNTER 2018-09-14 15:38 | Emergency (ER) | payer OTHER | END 2018-09-14 16:20 | disposition home or self-care (01) ==